=== PATIENT | female | born 1945 | race Caucasian/White ===

== ENCOUNTER → 2021-10-26 07:46 | Outpatient (BNVA) | payer MEDICARE, SELFPAY | PROVIDERS: Family Provider Family Medicine; Referring Provider Nurse Practitioner Family; Visit Provider Podiatrist Foot & Ankle Surgery | DX: B35.1 Tinea unguium (principal); M79.671 Pain in right foot; M79.672 Pain in left foot; E11.9 Type 2 diabetes mellitus without complications | CPT/HCPCS: 99203 ==

== ENCOUNTER → 2022-12-30 07:39 | Outpatient (BNVA) | payer MEDICARE, SELFPAY | PROVIDERS: Family Provider Family Medicine; PCP Nurse Practitioner Family; Visit Provider Podiatrist Foot & Ankle Surgery | DX: B35.1 Tinea unguium (principal); G62.9 Polyneuropathy, unspecified; E11.42 Type 2 diabetes mellitus with diabetic polyneuropathy | CPT/HCPCS: 11721 ==

== ENCOUNTER 2024-02-05 15:03 | Inpatient (IN) | payer MEDICARE, SELFPAY ==
[2024-02-05] VITALS (7 sets, daily range): BP systolic 105–133; BP diastolic 54–74; PULSE 71–75; RESP 14–18; TEMP 36.6–36.9; O2SAT 94–98; BMI 35.6
--- NOTE | 2024-02-05 15:08 | ECG_ITS ---
[facility] Test Date: 2024-02-05 Pat Name: Analilia Arvizu Department: Room: Gender: Female Director Of Epidemiology: : 1945 Requested By: Noah Veloz Order Number: [id number] Reading MD: LILI BAILEY Measurements Intervals [place] Rate: 73 P: 53 NH: 168 QRS: -38 QRSD: 97 T: 29 QT: 352 QTc: 389 Interpretive Statements SINUS RHYTHM LEFT AXIS DEVIATION [QRS AXIS < -30] LOW QRS VOLTAGE IN PRECORDIAL LEADS [QRS DEFLECTION < 1.0 mV IN CHEST LEADS] ANTEROSEPTAL MYOCARDIAL INFARCTION , OF INDETERMINATE AGE [40+ ms Q WAVE IN V1-V4] Compared to ECG 04/11/2017 18:56:35 Low QRS voltage now present Myocardial infarct finding now present Electronically Signed On 02-05-2024 18:52:54 RIVER TRANSPORTATION WORKER by LILI BAILEY [id number]
--- NOTE | 2024-02-05 15:21 | XR_ITS ---
WS: [id number] Portable AP supine chest, 02/05/2024 Clinical Data: ams Comparison: Portable chest, 04/11/2017 Findings: There is a retrocardiac opacity which could represent atelectasis and/or pneumonia. The rig ht lung is clear. No pneumothorax or pulmonary vascular congestion is seen. There are no nodules, mas ses or effusions. The heart is normal. The aortic arch shows moderate calcification. XR/XR chest 1V portable [id number] Impression: 1. Retrocardiac opacity which could represent atelectasis and/or pneumonia. 2. Atherosclerosis.
--- NOTE | 2024-02-05 15:25 | ED_ITS ---
HPI - Altered Mental Status 2 General: Chief Complaint: Altered Mental Status Stated Complaint: confusion, weakness Time Seen by Provider: 02/05/24 15:09 Source: EMS Mode of arrival: EMS Limitations: altered mental status History of Present Illness: This patient was transported from her domicile by [facility]. They were called by the patient's . She apparently recently has had a urinary tract infection was treated but still remains confused. According to EMS. No other history is obtainable at this time. is and route per EMS. There is no records for care at this facility previously. Related Data Home Medications Medication Instructions Recorded Confirmed carvedilol 12.5 mg tablet 12.5 mg PO BID 12/30/22 02/05/24 clopidogrel 75 mg tablet (Plavix) 75 mg PO DAILY 12/30/22 02/05/24 gabapentin 300 mg capsule 300 mg PO TID 12/30/22 02/05/24 pravastatin 40 mg tablet 40 mg PO DAILY 12/30/22 02/05/24 famotidine 40 mg tablet 40 mg PO DAILY 02/05/24 02/05/24 Allergies Allergy/AdvReac Type Severity Reaction Status Date / Time No Known Allergies Allergy Verified 12/30/22 07:42 Review of Systems 2 General: Reports: ROS unobtainable due to mental status PFSH ED 2 PFSH: Medical History HTN (hypertension) with goal to be determined CAD (coronary artery disease) Surgical History History of hysterectomy History of appendectomy History of cholecystectomy Family History Mother Cancer Social History Smoking and tobacco/nicotine status: never used tobacco/nicotine Physical Exam 2 Narrative: The patient is alert she responds in a limited fashion to any questions she primarily echoes the question and her response. Appears to be comfortable. Has a strong urine odor to her body. Const: COMMON NORMALS: alert GENERAL APPEARANCE: comfortable and disheveled ORIENTATION/CONSCIOUSNESS: Yes awake and Yes oriented to person HENMT: FACE & SINUS: face symmetric OTHER: Patient has dry parched mucous membranes. No intraoral masses or erythema noted. Eye: COMMON NORMALS: Equal, round and reactive pupils present, EOMs intact bilaterally and conjunctivae normal CONJUNCTIVA: Yes conjunctivae normal P UPIL: Yes Equal, round and reactive pupils present Neck/C-Spine: COMMON NORMALS: full ROM, no lymphadenopathy and supple Chest: COMMONS NORMALS: normal inspection of the chest Resp: COMMON NORMALS: normal respiratory effort, No use of accessory muscles and clear to auscultation bilaterally AUSCULTATION: clear to auscultation bilaterally Cardio: COMMON NORMALS: regular rate, regular rhythm, No murmurs present (Cardio) and Peripheral pulses 2+ throughout RATE: regular rate RHYTHM: r egular rhythm PERIPHERAL PULSES: Peripheral pulses 2+ throughout GI: COMMON NORMALS: Normal to inspection, nondistended, normoactive bowel sounds present, Soft to palpation and non-tender INSPECTION: Yes scar (Prior midline lower abdominal as well as right upper quadrant surgical scar) P ALPATION: Yes Soft to palpation : COMMON NORMALS: Yes no CVA tenderness BLADDER/KIDNEY EXAM: Yes no CVA tenderness Back/Pelvis: COMMON NORMALS: no CVA tenderness, thoracic and lumbar spine normal to inspection and no thoracic nor lumbar tenderness Extremity: COMMON NORMALS: normal to inspection, full ROM, capillary refill normal, no calf tenderness and no pedal edema Neuro: COMMON NORMALS: moves all extremities and no focal motor deficits S ENSORIUM/ORIENTATION: Yes alert and Yes oriented to person Skin: COMMON NORMALS: no petechiae and no mottling NARRATIVE SKIN EXAM: Decreased skin turgor. Course 2 Reevaluation(s): Reevaluation #1: is now present and he gave additional history and that she was recently treated at the [facility] emergency department at [place] for urinary tract infection and discharged home. He states she started doing better for a couple days and then got worse again and is ultimately decreased in her oral intake become more confused and therefore he called EMS to be transported to this facility. He states that her past history is remarkable for coronary artery disease she has had multiple stents placed most of which have been done at this facility. She still takes her Plavix and other medications as prescribed. We discussed treatment options particularly at this point because of her state of dehydration and general clinical appearance it would be beneficial to treat her as a inpatient or at least a observation patient for the next 24 to 48 hours to ensure that she returns to her baseline. Also reviewed the fact that she has lymphadenopathy but he is unaware of her ever having a diagnosis of a hematologic malignancy. Time: 17:56 Consultations: Consultation #1: Discussed with Dr. Marcos who agrees to place the patient in observation Time: 18:00 Vital Signs: Vital signs: Vital Signs Temperature 97.9 F 02/05/24 15:05 Pulse Rate 73 02/05/24 18:33 Respiratory Rate 16 02/05/24 18:33 Blood Pressure 133/71 02/05/24 18:33 Pulse Oximetry 98 02/05/24 18:33 Oxygen Delivery Me thod Room Air 02/05/24 18:33 MDM - Altered Mental Status Medical Decision Making Patient presented as noted in the HPI. She was transported via EMS from her home. Additionally history is limited to that which could be obtained from EMS. arrived later in the course of of her ED visit. She had been previously treated as an outpatient for UTI had some short-term improvement and then continues to deteriorate with increased confusion decreased oral intake and incontinence of urine. She has a past medical history of coronary disease but he is not aware of her having any concomitant chest pain or shortness of breath. Differential included possible urinary tract infection, volume depletion, other potential occult infection etiology. Laboratories were obtained which revealed evidence of urinary tract infection and volume depletion and possible KLAUS I although no baseline creatinine was available at this time. 78 chest x-ray was obtained which was revealing of possible infiltrate versus retrocardiac mass and a noncontrast CT was obtained which showed significant adenopathy. He had no history of aspiration or other respiratory issues and was not hypoxic here. She received the benefit of IV fluids, IV antibiotics but because of her current clinical status of dehydration poor oral intake and what could be presumed from discussion with her of not being back at her baseline it was felt that a period of observation with continued hydration and antibiotics and reassessment would be appropriate. This was reviewed with the hospital doctor who agreed to proceed. Lab Data I reviewed the patient's lab results. 02/05/24 15:44 02/05/24 15:44 Radiology Impressions Chest X-Ray 02/05/24 15:21 Impression: 1. Retrocardiac opacity which could represent atelectasis and/or pneumonia. 2. Atherosclerosis. 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 No evidence for large acute ischemic infarction or acute intracranial injury. Chest CT 02/05/24 15:59 IMPRESSION: 1. Bulky adenopathy involving both axilla, mediastinum and upper abdomen consistent with hematologic malignancy 2. Bibasilar atelectasis and pleural effusions Laboratory Results WBC 8.03 10^3/uL (3.29-11.43) 02/05/24 15:44 RBC 4.18 10^6/uL (3.85-5.65) 02/05/24 15:44 Hgb 12.30 g/dL (11.27-16.99) 02/05/24 15:44 Hct 38.0 % (36-47) 02/05/24 15:44 MCV 90.9 fl (85-98) 02/05/24 15:44 MCH 29.4 pg (27-33) 02/05/24 15:44 MCHC 32.4 g/dL (30-55) 02/05/24 15:44 RDW 15.8 % (12.1-15.1) H 02/05/24 15:44 Plt Count 190 10^3/cmm (157-399) 02/05/24 15:44 MPV 9.6 fL (7.4-10.4) 02/05/24 15:44 Neut % (Auto) 61.0 % 02/05/24 15:44 Lymph % (Auto) 17.1 % 02/05/24 15:44 [place] % (Auto) 16.6 % 02/05/24 15:44 Eos % (Auto) 4.7 % 02/05/24 15:44 Baso % (Auto) 0.2 % 02/05/24 15:44 Neut # (Auto) 4.90 10^3/uL (1.8-7.7) 02/05/24 15:44 Lymph # (Auto) 1.4 10^3/uL (0.8-4.8) 02/05/24 15:44 [place] # (Auto) 1.3 10^3/uL (0.2-0.9) H 02/05/24 15:44 Eos # (Auto) 0.4 10^3/uL (0.0-0.8) 02/05/24 15:44 Baso # (Auto) 0.0 10^3/uL (0.0-0.1) 02/05/24 15:44 Nucleated RBC % (auto) 0 % 02/05/24 15:44 Nucleated RBCs # 0.0 /100WBC 02/05/24 15:44 Sodium 139 mmol/L (136-145) 02/05/24 15:44 Potassium 4.4 mmol/L (3.5-5.1) 02/05/24 15:44 Chloride 101 mmol/L (98-107) 02/05/24 15:44 Carbon Dioxide 27 mmol/L (22-29) 02/05/24 15:44 Anion Gap 15.4 (5-19) 02/05/24 15:44 BUN 34 mg/dL (8-23) H 02/05/24 15:44 Creatinine 1.4 mg/dL (0.5-0.9) H 02/05/24 15:44 GFR Calculation Not Reportable 02/05/24 15:44 Glucose 89 mg/dL (65-115) 02/05/24 15:44 Calculated Osmolality 295 mOsm/kg (285-295) 02/05/24 15:44 Calcium 11.3 mg/dL (8.5-10.5) H 02/05/24 15:44 Magnesium 1.7 mg/dL (1.7-2.3) 02/05/24 15:44 Total Bilirubin 1.2 mg/dL (0.15-1.2) 02/05/24 15:44 AST 22 U/L (0-32) 02/05/24 15:44 ALT 9 U/L (0-33) 02/05/24 15:44 Alkaline Phosphatase 93 U/L (35-105) 02/05/24 15:44 Total Protein 5.9 g/dL (6.6-8.7) L 02/05/24 15:44 Albumin 2.8 g/dL (3.5-5.2) L 02/05/24 15:44 Globulin 3.1 g/dL (1.3-4.6) 02/05/24 15:44 TSH 1.89 uIU/mL (0.27-4.20) 02/05/24 15:44 Urine Color Yellow (Yellow) 02/05/24 16:06 Urine Appearance Clear (CLEAR) 02/05/24 16:06 Urine pH 5.0 (5-7) 02/05/24 16:06 Ur Specific [place] 1.022 (1.005-1.030) 02/05/24 16:06 Urine Protein Trace (Negative) A 02/05/24 16:06 Urine Glucose (UA) Negative (Normal) 02/05/24 16:06 Urine Ketones Negative (Negative) 02/05/24 16:06 Urine Blood Negative (Negative) 02/05/24 16:06 Urine Nitrate Negative (Negative) 02/05/24 16:06 Urine Bilirubin Negative (Negative) 02/05/24 16:06 Urine Urobilinogen 1.0 mg/dL (Negative) 02/05/24 16:06 Ur Leukocyte Esterase 2+ (Negative) A 02/05/24 16:06 Urine RBC 0-2 /hpf (0-2) 02/05/24 16:06 Urine WBC 21-50 /hpf (0-5) H 02/05/24 16:06 Ur Squamous Epith Cells 11-20 /hpf (0-5) 02/05/24 16:06 Amorphous Sediment Not Reportable 02/05/24 16:06 Urine Bacteria 3+ /hpf (NONE) H 02/05/24 16:06 Hyaline Casts 1.65 /lpf 02/05/24 16:06 All radiology interpretation(s) finalized by discharge EKG Data EKG 1: I personally reviewed and interpreted this EKG as follows: Interpretation: Contemporaneous review of resting EKG reveals ventricular rate of 73 bpm with a normal TX interval, QRS duration, corrected QT interval. Slight leftward axis consider consistent with possible left anterior Heema block. Decreased R wave noted across the precordial leads. No prior available for comparison but this may suggest a remote anterior septal KS. Discharge Plan Discharge Patient Disposition: Placed in Observation Clinical Impression: Urinary tract infection, Volume depletion Condition: Stable Prescriptions: No Action pravastatin 40 mg tablet 40 mg PO DAILY gabapentin 300 mg capsule 300 mg PO TID carvedilol 12.5 mg tablet 12.5 mg PO BID Rx Instructions: must administer with a meal/food clopidogrel [Plavix] 75 mg tablet 75 mg PO DAILY famotidine 40 mg tablet 40 mg PO DAILY Referrals: Maryann Webb NP [Primary Care Provider] - Jose Alberto Al MD [Family Provider] - Patient Instructions: Altered Mental Status (ED) Coding Level of Care Code ED Bakery Assistant for Celestino Ramirez
--- NOTE | 2024-02-05 15:32 | PC.PHAR ---
patient doesn't know/cant confirm.. she said does meds but their number is not a working number.. called pharmacy to confirm
[2024-02-05 15:53] LABS: Basophils % 0.2 %; Eosinophils # 0.4 10^3/uL (0.0-0.8); Eosinophils % 4.7 %; Lymphocytes # 1.4 10^3/uL (0.8-4.8); Lymphocytes % 17.1 %; Mean Corpuscular HGB Conc 32.4 g/dL (30-55); Mean Corpuscular Hemoglobin 29.4 pg (27-33); Mean Corpuscular Volume 90.9 fl (85-98); Mean Platelet Volume 9.6 fL (7.4-10.4); Monocytes # 1.3 10^3/uL (0.2-0.9); Monocytes % 16.6 %; Nucleated Red Blood Cells % 0 %; Platelet Count 190 10^3/cmm (157-399); Red Blood Count 4.18 10^6/uL (3.85-5.65); Red Cell Distribution Width 15.8 % (12.1-15.1); White Blood Count 8.03 10^3/uL (3.29-11.43)
--- NOTE | 2024-02-05 15:57 | CTR_ITS ---
PROCEDURE INFORMATION: Exam: CT Head Without Contrast Exam date and time: 02/05/2024 4:36 PM Age: 78 years old Clinical indication: Altered mental status/memory loss; TECHNIQUE: Imaging protocol: Computed tomography of the head without contrast. Radiation optimization: All CT scans at this facility use at least one of these dose optimization techniques: automated exposure control; mA and/or kV adjustment per patient size (includes targeted exams where dose is matched to clinical indication); or iterative reconstruction. COMPARISON: No relevant prior studies available. 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 There are chronic lacunar infarcts in the basal ganglia and internal/external capsules. There is diffuse cerebral atrophy present, consistent with this patient's age. Periventricular and subcortical white matter low densities are present which at this age likely represent microvascular ischemic change. No evidence for large acute ischemic infarction. Please note acute ischemia can be occult by head CT. No evidence for acute intracranial hemorrhage. Cerebral ventricles: No ventriculomegaly. Paranasal sinuses: Visualized sinuses are unremarkable. No fluid levels. Mastoid air cells: Visualized mastoid air cells are well aerated. Bones: Unremarkable. No acute fracture. Soft tissues: Unremarkable. 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 No evidence for large acute ischemic infarction or acute intracranial injury.
--- NOTE | 2024-02-05 15:59 | CTR_ITS ---
PROCEDURE INFORMATION: Exam: CT Chest Without Contrast; Diagnostic Exam date and time: 02/05/2024 4:39 PM Age: 78 years old Clinical indication: Mass, lump, or swelling in the chest; Additional info: Retrocardaic mass TECHNIQUE: Imaging protocol: Diagnostic computed tomography of the chest without contrast. Radiation optimization: All CT scans at this facility use at least one of these dose optimization techniques: automated exposure control; mA and/or kV adjustment per patient size (includes targeted exams where dose is matched to clinical indication); or iterative reconstruction. COMPARISON: CR XR chest 1V portable [id number] 02/05/2024 3:33 PM RADIATION DOSE METRICS: Total DLP (mGy-cm): 483.54 FINDINGS: Lungs: Bibasilar atelectasis can be seen along with small bilateral pleural effusions. There is high density material within the left lower lobe consistent with either calcifications or aspirated hyperdense material. Pleural spaces: See Lungs finding. Heart: Unremarkable. No cardiomegaly. No pericardial effusion. Coronary arteries: Coronary artery calcifications are noted. Lymph nodes: Numerous enlarged lymph nodes are noted in both axillary regions. The largest node in the right axilla measures 3.4 cm in diameter and the largest node in the left axilla measures 3.7 cm. Multiple enlarged lymph nodes are noted throughout the mediastinum with the largest measuring 3 cm within the subcarinal space. Upper abdominal images demonstrate bulky adenopathy within the lien hepatis as well as in the splenic hilum of the upper abdomen. Vasculature: Unremarkable. No aortic aneurysm. Bones/joints: Unremarkable. No acute fracture. Soft tissues: Unremarkable. CT/CT chest con [id number] IMPRESSION: 1. Bulky adenopathy involving both axilla, mediastinum and upper abdomen consistent with hematologic malignancy 2. Bibasilar atelectasis and pleural effusions
[2024-02-05 16:20] LABS: Alanine Aminotransferase 9 U/L (0-33); Albumin Level 2.8 g/dL (3.5-5.2); Alkaline Phosphatase 93 U/L (35-105); Anion Gap 15.4 (5-19); Aspartate Amino Transferase 22 U/L (0-32); Blood Urea Nitrogen 34 mg/dL (8-23); Calcium 11.3 mg/dL (8.5-10.5); Carbon Dioxide 27 mmol/L (22-29); Chloride 101 mmol/L (98-107); Globulin 3.1 g/dL (1.3-4.6); Glucose 89 mg/dL (65-115); Magnesium 1.7 mg/dL (1.7-2.3); Osmolality Calculated 295 mOsm/kg (285-295); Potassium 4.4 mmol/L (3.5-5.1); Sodium 139 mmol/L (136-145); Thyroid Stimulating Hormone 1.89 uIU/mL (0.27-4.20); Total Bilirubin 1.2 mg/dL (0.15-1.2); Total Protein 5.9 g/dL (6.6-8.7)
[2024-02-05 16:29] LABS: Bilirubin Urine Negative (Negative); Blood Urine Negative (Negative); Glucose Urine UA Negative (Normal); Ketones Urine Negative (Negative); Leukocyte Esterase Urine 2+ (Negative); Nitrate Urine Negative (Negative); Protein Urine Trace (Negative); Specific Gravity, Urine 1.022 (1.005-1.030); Urine Appearance Clear (CLEAR); Urine Color Yellow (Yellow)
[2024-02-05 16:35] LABS: Add Urine Microscopic? YES; Bacteria Urine 3+ /hpf; Hyaline Casts Urine 1.65 /lpf; RBC Urine 0-2 /hpf (0-2); WBC Urine 21-50 /hpf (0-5)
[2024-02-05 16:49] LABS: Add Urine Culture? Yes; UA Slide Review UA Slide Review Perf
[2024-02-05] MEDS: sodium chloride 0.9% 1,000 ML 999 ML IV (17:15)
[2024-02-05] MEDS: cefTRIAXone 2,000 mg SDV 2000 MG IVP (17:15)
--- NOTE | 2024-02-05 18:29 | CTR_ITS ---
PROCEDURE INFORMATION: Exam: CT Abdomen And Pelvis Without Contrast Exam date and time: 02/05/2024 7:02 PM Age: 78 years old Clinical indication: Abdominal pain; Generalized TECHNIQUE: Imaging protocol: Computed tomography of the abdomen and pelvis without contrast. Radiation optimization: All CT scans at this facility use at least one of these dose optimization techniques: automated exposure control; mA and/or kV adjustment per patient size (includes targeted exams where dose is matched to clinical indication); or iterative reconstruction. COMPARISON: CT abdomen pelvis con [id number] 10/27/2017 5:20 PM RADIATION DOSE METRICS: Total DLP (mGy-cm): 875.37 FINDINGS: Lungs: See Pleural spaces finding. Pleural spaces: Small pleural effusions are noted bilaterally along with bibasilar atelectasis. Parenchymal and/or pleural calcifications are noted in the left lower lobe. Liver: Normal. No mass. Gallbladder and biliary ducts: Normal. No calcified stones. No ductal dilation. Pancreas: Normal. No ductal dilation. Spleen: Normal. No splenomegaly. Adrenal glands: Normal. No mass. Kidneys and ureters: Normal. No hydronephrosis. Stomach and bowel: Unremarkable. No obstruction. No mucosal thickening. Appendix: No evidence of appendicitis. Intraperitoneal space: Minimal ascites is noted. Vasculature: Unremarkable. No abdominal aortic aneurysm. Lymph nodes: Multiple enlarged lymph nodes are noted throughout the abdomen and pelvis. Enlarged lymph nodes are noted in the lien hepatis region as well as surrounding the GE junction and splenic hilum. Enlarged nodes are also noted throughout the periaortic space and throughout both iliac chains. Large bilateral inguinal lymph nodes are also noted. The largest inguinal lymph node measures 4.4 cm on the right. The largest iliac chain lymph node measures 3 cm on the right. The largest periaortic lymph node measures 2 cm. The largest periportal lymph node measures 4.7 cm. Urinary bladder: Unremarkable as visualized. Reproductive: Unremarkable as visualized. Bones/joints: Unremarkable. No acute fracture. Soft tissues: Unremarkable. CT/CT abdomen pelvis con [id number] IMPRESSION: Extensive abdominal and pelvic adenopathy consistent with hematologic malignancy
--- NOTE | 2024-02-05 18:29 | ECG_ITS ---
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1945 Requested By: John Paul Tejeda Order Number: [id number] Reading MD: LILI BAILEY Measurements Intervals [place] Rate: 131 P: 0 VA: 0 QRS: -46 QRSD: 94 T: 90 QT: 321 QTc: 475 Interpretive Statements SUPRAVENTRICULAR TACHYCARDIA LOW QRS VOLTAGE IN PRECORDIAL LEADS [QRS DEFLECTION < 1.0 mV IN CHEST LEADS] LEFT ANTERIOR FASCICULAR BLOCK [QRS AXIS <= -45, QR IN I, RS IN II] ANTEROSEPTAL MYOCARDIAL INFARCTION , PROBABLY OLD [40+ ms Q WAVE IN V1-V4] Compared to ECG 02/05/2024 15:08:34 Left anterior fascicular block now present Sinus rhythm no longer present Left-axis deviation no longer present Myocardial infarct finding still present Electronically Signed On 02-05-2024 18:52:28 MOBILE SECURITY SPECIALIST by LILI BAILEY [email or web address]
--- NOTE | 2024-02-05 18:31 | P.HP_ITS ---
Providers/Chief Complaint 2 Primary Care Provider: Maryann Webb NP Chief Complaint: confusion, weakness History of Present Illness Analilia Arvizu is a 78 year old female with a past medical history of type 2 diabetes mellitus, history of CAD status post stenting, hypertension, hyperlipidemia history of cholecystectomy, appendectomy, who presents [facility] due to altered mental status, poor appetite, fatigue, malaise,. Currently patient is alert to person, not to place, to time she does not follow commands globally encephalopathic, pupils are equal round reactive to light, no slurring of her words, but her speech is nonsensical, she moves bilateral upper and lower extremities, is at bedside according to , patient lives at home with him, she is somewhat dependent on her for activities of daily living, for example she at times needs help with ambulation but on most days she can ambulate by herself, she can feed herself, she does have some forgetfulness he tells me. He tells me that about a week ago she had confusion, weakness, she had gotten up to use the bathroom and he she was depending on him more for ambulation, when she got to the bathroom, she slumped over and in the bathroom, he thought she had , but she had what it sounds like a syncopal episode but she came alert about a minute after he had taken his to [facility] ER they had done a lot of test he tells me and all the test came back normal. She was able to actually walk from the car back to the front door after visiting the emergency room, but on Monday she started to become more confused, poor appetite, fatigue, malaise, complaining of abdominal pain, she has not any fevers, no chills, no nausea, no vomiting, no other complaints Review of Systems 2 General: Reports: ROS unobtainable due to mental status Medications/Allergies Home Medications Medication Instructions Recorded Confirmed Last Taken Type carvedilol 12.5 mg tablet 12.5 mg PO BID 12/30/22 02/05/24 Unknown History clopidogrel 75 mg tablet (Plavix) 75 mg PO DAILY 12/30/22 02/05/24 Unknown History gabapentin 300 mg capsule 300 mg PO TID 12/30/22 02/05/24 Unknown History pravastatin 40 mg tablet 40 mg PO DAILY 12/30/22 02/05/24 Unknown History famotidine 40 mg tablet 40 mg PO DAILY 02/05/24 02/05/24 Unknown History Allergies Allergy/AdvReac Type Severity Reaction Status Date / Time No Known Allergies Allergy Verified 12/30/22 07:42 PFSH Acute 2 PFSH: Medical History HTN (hypertension) with goal to be determined CAD (coronary artery disease) Surgical History History of hysterectomy History of appendectomy History of cholecystectomy Family History Mother Cancer Social History Smoking and tobacco/nicotine status: never used tobacco/nicotine Vitals/I&O/Wt Last Vital Signs Temp 97.9 F 02/05/24 15:05 Pulse 72 02/05/24 17:03 Resp 14 02/05/24 17:03 BP 107/73 02/05/24 17:03 Pulse Ox 94 02/05/24 17:03 O2 Del Method Room Air 02/05/24 17:03 Physical Exam 2 Const: COMMON NORMALS: no acute distress EXAM LIMITATIONS: altered mental status ORIENTATION/CONSCIOUSNESS: Yes awake, Yes oriented to person and Yes oriented to place; not oriented to time HENMT: COMMON NORMALS: normocephalic Eye: COMMON NORMALS: Equal, round and reactive pupils present Resp: COMMON NORMALS: normal respiratory effort, No retractions, No use of accessory muscles and clear to auscultation bilaterally AUSCULTATION: clear to auscultation bilaterally Cardio: COMMON NORMALS: no JVD, regular rate, regular rhythm, S1 normal heart sound present and S2 normal heart sound present RATE: regular rate RHYTHM: regular rhythm HEART SOUNDS: S1 normal heart sound present and S2 normal heart sound present GI: COMMON NORMALS: Normal to inspection, nondistended, normoactive bowel sounds present, Soft to palpation and non-tender Extremity: COMMON NORMALS: no pedal edema Neuro: OTHER: doesnot follow neurological testing Data 02/05/24 15:44 02/05/24 15:44 A&P Assessment and plan (1) AMS (altered mental status): (2) Volume depletion: (3) Urinary tract infection: Plan Altered mental status -UA with evidence of UTI, switched to Zosyn -neurocheck, nih stroke scale, aspiration precuations -She has CT does show bibasilar atelectasis, pleural effusion, there is hyperdense material within the left lower lobe with either calcification or aspirated hyperdense material? 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 denies a history of strokes, will continue to monitor closely, telemetry monitoring -Chest CT shows 1. Bulky adenopathy involving both axilla, mediastinum and upper abdomen consistent with hematologic malignancy -Order LDH, haptoglobin, CT scan of the abdomen -IV fluids -Keep n.p.o. -Therapy eval -Full code -Lovenox for DVT prophylaxis Attestations 2 Medical Necessity Statement*: Patient requires hospitalization, inpatient, greater than 2 midnights, for altered mental status Diagnoses AMS (altered mental status) R41.82 Volume depletion E86.9 Urinary tract infection N39.0
[2024-02-05 19:18] LABS: Ammonia 20 umol/L (11-51)
[2024-02-05 19:19] LABS: Erythrocyte Sedimentation Rate 9 mm/hr (0-15)
[2024-02-05 19:34] LABS: Troponin(5th) Baseline 19 ng/L (0-10)
[2024-02-05 19:35] LABS: C Reactive Protein 28.3 mg/L (0.0-4.9); Creatine Phosphokinase 30 U/L (26-192); Lactate Dehydrogenase 276 U/L (135-214); Lactic Sepsis W/Reflex 3.6 mmol/L (0.5-2.2)
[2024-02-05 19:41] LABS: Procalcitonin 0.26 ng/mL (0-0.5)
[2024-02-05 20:42] LABS: Reflex Lactate Order REFLEX LACTIC ORDERD
--- NOTE | 2024-02-05 21:26 | ECG_ITS ---
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 Measurements Intervals [place] Rate: 73 P: 53 NH: 168 QRS: -38 QRSD: 97 T: 29 QT: 352 QTc: 389 Interpretive Statements SINUS RHYTHM LEFT AXIS DEVIATION [QRS AXIS < -30] LOW QRS VOLTAGE IN PRECORDIAL LEADS [QRS DEFLECTION < 1.0 mV IN CHEST LEADS] ANTEROSEPTAL MYOCARDIAL INFARCTION , OF INDETERMINATE AGE [40+ ms Q WAVE IN V1-V4] Compared to ECG 04/11/2017 18:56:35 Low QRS voltage now present Myocardial infarct finding now present Electronically Signed On 02-07-2024 19:16:56 IMAGING TECH by Talia Lerma M.D. [email or web address]
[2024-02-05] MEDS: piperacillin-tazobactam 3.375 GM in sodium chloride 0.9% (plus) 50 ML IV (21:57)
[2024-02-05] MEDS: pantoprazole 40 mg SDV IVP (21:57)
[2024-02-05] MEDS: enoxaparin 40 mg/0.4 mL Syringe SUBCUT (21:57)
[2024-02-05] MEDS: dextrose 5%-sod chloride 0.9% 1,000 ML 75 ML IV (21:58)
[2024-02-05 22:22] LABS: Estmated Average Glucose 140; Hemoglobin A1C 6.5 % (4.0-6.0); Lactic Acid level (Lactate) 3.7 mmol/L (0.5-2.2)
[2024-02-05 22:26] LABS: Troponin 5 2HR Delta 1.1 ABS# (0-10)
[2024-02-06] VITALS (7 sets, daily range): BP systolic 102–136; BP diastolic 60–81; PULSE 74–88; RESP 15–19; TEMP 36.5–37.1; O2SAT 93–98
--- NOTE | 2024-02-06 00:27 | ECG_ITS ---
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 Measurements Intervals [place] Rate: 77 P: 7 CA: 161 QRS: -27 QRSD: 101 T: 34 QT: 367 QTc: 417 Interpretive Statements SINUS RHYTHM LOW QRS VOLTAGE IN PRECORDIAL LEADS [QRS DEFLECTION < 1.0 mV IN CHEST LEADS] ANTEROSEPTAL MYOCARDIAL INFARCTION , OF INDETERMINATE AGE [40+ ms Q WAVE IN V1-V4] Compared to ECG 02/05/2024 18:37:59 Supraventricular tachycardia no longer present Left anterior fascicular block no longer present Myocardial infarct finding still present Electronically Signed On 02-07-2024 19:16:50 COLLAR POINTER by Talia Lerma M.D. [email or web address]
[2024-02-06 00:54] LABS: Basophils % 0.4 %; Eosinophils # 0.3 10^3/uL (0.0-0.8); Eosinophils % 4.6 %; Hematocrit 36.5 % (36-47); Lymphocytes # 1.4 10^3/uL (0.8-4.8); Mean Corpuscular HGB Conc 32.6 g/dL (30-55); Mean Corpuscular Hemoglobin 29.2 pg (27-33); Mean Corpuscular Volume 89.5 fl (85-98); Mean Platelet Volume 9.4 fL (7.4-10.4); Monocytes # 1.1 10^3/uL (0.2-0.9); Monocytes % 15.1 %; Neutrophils % 60.6 %; Nucleated Red Blood Cells % 0 %; Platelet Count 182 10^3/cmm (157-399); Red Blood Count 4.08 10^6/uL (3.85-5.65); Red Cell Distribution Width 15.9 % (12.1-15.1)
[2024-02-06 01:10] LABS: Troponin 5 6HR 22.09 ng/L (0-10); Troponin 5 6HR Delta 3.09 ng/L (0-12)
[2024-02-06 01:12] LABS: Anion Gap 14.2 (5-19); Blood Urea Nitrogen 37 mg/dL (8-23); Calcium 10.6 mg/dL (8.5-10.5); Carbon Dioxide 26 mmol/L (22-29); Chloride 103 mmol/L (98-107); Creatinine Clr Calc Pharmacy 28.5194; Glucose 99 mg/dL (65-115); Osmolality Calculated 297 mOsm/kg (285-295); Potassium 4.2 mmol/L (3.5-5.1); Sodium 139 mmol/L (136-145)
[2024-02-06] MEDS: piperacillin-tazobactam 3.375 GM in sodium chloride 0.9% (plus) 50 ML IV ×3 (05:29→21:36)
[2024-02-06] MEDS: dextrose 5%-sod chloride 0.9% 1,000 ML 75 ML IV (09:42)
[2024-02-06 10:30] LABS: Uric Acid 8.7 mg/dL (2.4-5.7)
--- NOTE | 2024-02-06 11:00 | MR_ITS ---
WS: [id number] MRI HEAD WITHOUT CONTRAST TECHNIQUE: Sagittal T1, T2 axial, T2 axial FLAIR, axial and coronal T1 images, axial susceptibility w eighted imaging, axial diffusion weighted images, and coronal T2 images were obtained. CLINICAL INFORMATION: ams COMPARISON: CT 02/05/2024 FINDINGS: Most of the imaging is degraded by motion artifact. Axial diffusion and sagittal T1 imaging is adequate. No evidence of restricted diffusion to suggest acute ischemia. Ventricular system and basal cisterns are patent. No hydrocephalus. Moderate to advanced small vessel changes. Moderate parenchymal volume loss. Small vessel changes in the yesika. Chronic infarcts partially evaluated in the cerebellum bilate rally. Chronic lacunar infarcts RIGHT cerebellum. Chronic cortical infarct LEFT cerebellum. No hemosi rhoda on the susceptibly weighted images. Normal optic chiasm and pituitary infundibulum. Moderate to advanced symmetric atrophy temporal lobes and hippocampal formations. MR/MR head wo con* [id number] IMPRESSION: Images significantly degraded by motion artifact despite medication . 1. No evidence of restricted diffusion to suggest acute ischemia. 2. No hydrocephalus. 3. Moderate to advanced small vessel changes with moderate parenchymal volume loss. 4. 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 5. No hemosiderin on the susceptibility weighted images. 6. Moderate to advanced symmetric atrophy temporal lobes hippocampal formation s.
[2024-02-06] MEDS: LORazepam 2 mg/mL INJ 1 mL 1 MG IVP (11:13)
[2024-02-06 11:35] LABS: Glucose Point of Care 143 mg/dL (70-110)
--- NOTE | 2024-02-06 12:44 | PC.SLP ---
Patient unable to participate in assessment at this time. Patient had Ativan earlier for procedure. She is currently not alert.
--- NOTE | 2024-02-06 15:10 | P.PN_ITS ---
Subjective 2 Subjective: Patient was seen this morning, is at bedside, she remains diffusely encephalopathic, she does not follow commands she is able to answer her name, able to tell me her birthdate, but keeps moaning, her speech is nonsensical I cannot discern any facial droop no slurring of words, she does move her upper and lower extremities, at bedside tells me that she did sleep well last night, no wandering, no agitation, he tells me that she is a bit more alert and awake compared to yesterday, but this is not her, I had a detailed discussion with her about her CT scan findings, of diffuse lymphadenopathy, findings concerning for malignancy, given her persistent encephalopathy plan on MRI today to rule out intracranial metastasis, continue IV antibiotics, depending on clinical progress certainly can proceed with biopsy of her lymph nodes to establish a diagnosis, Vitals/I&O/Wt Last Vital Signs Temp 97.7 F 02/06/24 11:58 Pulse 79 02/06/24 11:58 Resp 17 02/06/24 11:58 BP 132/69 02/06/24 11:58 Pulse Ox 96 02/06/24 11:58 O2 Del Method Room Air 02/06/24 11:58 02/06/24 02/06/24 02/06/24 06:59 14:59 22:59 Intake Total 50 / 1050 1037.5 / 1037.5 Balance 50 / 1050 1037.5 / 1037.5 Weight last 48 hrs Weight 82.826 kg Weight 82.735 kg Physical Exam 2 Const: COMMON NORMALS: no acute distress ORIENTATION/CONSCIOUSNESS: Yes awake and Yes oriented to person; not oriented to place, not oriented to time and not confused Eye: COMMON NORMALS: Equal, round and reactive pupils present PUPIL: Yes Equal, round and reactive pupils present Resp: COMMON NORMALS: normal respiratory effort, No retractions, No use of accessory muscles and clear to auscultation bilaterally AUSCULTATION: clear to auscultation bilaterally Cardio: COMMON NORMALS: regular rate, regular rhythm, S1 normal heart sound present and S2 normal heart sound present RATE: regular rate RHYTHM: r egular rhythm HEART SOUNDS: S1 normal heart sound present and S2 normal heart sound present GI: COMMON NORMALS: Normal to inspection, nondistended, normoactive bowel sounds present and non-tender Extremity: COMMON NORMALS: no pedal edema Neuro: SENSORIUM/ORIENTATION: Yes oriented to person, No oriented to place and No oriented to time Data 02/06/24 00:44 02/06/24 00:44 Micro: Microbiology 02/05/24 21:47 Blood Culture - Preliminary Blood SPECIMEN COLLECTED 02/05/24 21:37 Blood Culture - Preliminary Blood SPECIMEN COLLECTED A&P Assessment and plan (1) AMS (altered mental status): (2) Volume depletion: (3) Urinary tract infection: Qualifiers: Urinary tract infection type: site unspecified (4) Lymphadenopathy, abdominal: (5) Lymphadenopathy: (6) Pneumonia: Plan Altered mental status -UA with evidence of UTI, switched to Zosyn -neurocheck, nih stroke scale, aspiration precuations -She has CT does show bibasilar atelectasis, pleural effusion, there is hyperdense material within the left lower lobe with either calcification or aspirated hyperdense material? 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 MRI brain -Chest CT shows 1. Bulky adenopathy involving both axilla, mediastinum and upper abdomen consistent with hematologic malignancy CT/CT chest wo con [id number] IMPRESSION: 1. Bulky adenopathy involving both axilla, mediastinum and upper abdomen consistent with hematologic malignancy 2. Bibasilar atelectasis and pleural effusions -Order LDH 276, haptoglobin 201 -IV fluids -Keep n.p.o. -Therapy eval -Full code -Lovenox for DVT prophylaxis Attestations 2 Medical Necessity Statement*: Patient requires hospitalization for persistent encephalopathy, confusion, UTI, pneumonia, diffuse lymphadenopathy Diagnoses AMS (altered mental status) R41.82 Volume depletion E86.9 Urinary tract infection N39.0 Urinary tract infection type: site unspecified Lymphadenopathy, abdominal R59.0 Lymphadenopathy R59.1 Pneumonia J18.9
[2024-02-06 16:08] LABS: Glucose Point of Care 131 mg/dL (70-110)
[2024-02-06 16:38] LABS: Hepatitis A Antibody IgM Non-Reactive (Nonreactive); Hepatitis B Core IgM Non-Reactive (Nonreactive); Hepatitis B Surface Antigen Non-Reactive (Nonreactive); Hepatitis C Virus Antibody Non-Reactive (Nonreactive)
[2024-02-06 16:41] LABS: HIV 1 & 2 Antibody Non-Reactive (Non-Reactiv); HIV 1 & 2 Antigen Non-Reactive (Non-Reactiv)
--- NOTE | 2024-02-06 18:09 | PC.SLP ---
Pt is not alert enough to eval at this time. 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
[2024-02-06] MEDS: pantoprazole 40 mg SDV IVP (21:36)
[2024-02-06] MEDS: enoxaparin 30 mg/0.3 mL Syringe SUBCUT (21:36)
[2024-02-06 21:41] LABS: Glucose Point of Care 135 mg/dL (70-110)
[2024-02-07] VITALS (8 sets, daily range): BP systolic 97–147; BP diastolic 60–84; PULSE 73–83; RESP 15–24; TEMP 36.8–37.4; O2SAT 93–95
[2024-02-07] MEDS: acetaminophen 650 mg Supp PR (01:08)
[2024-02-07 05:04] LABS: Basophils % 0.4 %; Eosinophils # 0.5 10^3/uL (0.0-0.8); Eosinophils % 6.6 %; Hematocrit 35.8 % (36-47); Lymphocytes # 1.6 10^3/uL (0.8-4.8); Lymphocytes % 20.1 %; Mean Corpuscular HGB Conc 32.1 g/dL (30-55); Mean Corpuscular Hemoglobin 29.1 pg (27-33); Mean Corpuscular Volume 90.6 fl (85-98); Mean Platelet Volume 9.8 fL (7.4-10.4); Monocytes # 1.2 10^3/uL (0.2-0.9); Monocytes % 15.6 %; Neutrophils # 4.38 10^3/uL (1.8-7.7); Neutrophils % 56.9 %; Nucleated Red Blood Cells % 0 %; Platelet Count 181 10^3/cmm (157-399); Red Blood Count 3.95 10^6/uL (3.85-5.65); Red Cell Distribution Width 15.9 % (12.1-15.1)
[2024-02-07 05:20] LABS: Blood Urea Nitrogen 39 mg/dL (8-23); Calcium 10.3 mg/dL (8.5-10.5); Carbon Dioxide 25 mmol/L (22-29); Chloride 108 mmol/L (98-107); Creatinine Clr Calc Pharmacy 22.3531; Glucose 131 mg/dL (65-115); Osmolality Calculated 309 mOsm/kg (285-295); Sodium 144 mmol/L (136-145)
[2024-02-07] MEDS: piperacillin-tazobactam 3.375 GM in sodium chloride 0.9% (plus) 50 ML IV ×2 (05:24→17:45)
[2024-02-07 06:54] LABS: Glucose Point of Care 116 mg/dL (70-110)
--- NOTE | 2024-02-07 08:57 | FL_ITS ---
WS: [id number] LUMBAR PUNCTURE CLINICAL INFORMATION: ams COMPARISON: None. TECHNIQUE: Informed consent: Verbal and written consent was obtained prior to procedure from patient's caregiver . Timeout: A timeout was performed to confirm correct patient, procedure, and site. Patient was prepped and draped in the usual sterile fashion. Lidocaine 1% was used for local anesthes ia. Utilizing fluoroscopic guidance, a 3.5 inch 22-gauge spinal needle was advanced into the subarach noid space at L3-L4 via LEFT oblique sublaminar approach. Free flow of clear CSF was obtained. 12 cc of clear CSF was collected and sent the lab for further analysis. FLUOROSCOPIC TIME: 2min [id number] # of spot films: 1 FL/FL guided lumbarpunc dx* [id number] IMPRESSION: Fluoroscopically guided lumbar puncture. No immediate complications
[2024-02-07] MEDS: dextrose 5%-sod chloride 0.9% 1,000 ML 75 ML IV ×2 (09:25→22:26)
[2024-02-07] MEDS: vancomycin 2,000 MG/400 ML PIGGYBACK 200 MG IV (09:25)
--- NOTE | 2024-02-07 10:04 | PC.SOCIAL ---
IMM Updated Updated pt on IMM. No questions voiced. Provided pt a copy. Initialed, dated, & timed a copy & placed in chart.
[2024-02-07 11:26] LABS: Glucose Point of Care 164 mg/dL (70-110)
[2024-02-07] MEDS: vancomycin 500 MG in sodium chloride 0.9% (plus) 100 ML 200 MG IV (11:30)
[2024-02-07] MEDS: insulin lispro 100 unit/1 mL SUBCUT (11:56)
[2024-02-07 12:08] LABS: Glucose Point of Care 75 mg/dL (70-110)
--- NOTE | 2024-02-07 12:26 | PHA.VACGOAL ---
Vancomycin Goal - Goal Vancomycin Goal:: 15-20 mg/L Vancomycin Indication:: Pneumonia - Therapy Current therapy:: Pip/Tazo Day of therpy:: Day [1]of [] . Actual body weight (kg): 81.647 kg - Data Labs: WBC 7.70 10^3/uL (3.29-11.43) 02/07/24 04:48 RBC 3.95 10^6/uL (3.85-5.65) 02/07/24 04:48 Hgb 11.50 g/dL (11.27-16.99) 02/07/24 04:48 Hct 35.8 % (36-47) L 02/07/24 04:48 MCV 90.6 fl (85-98) 02/07/24 04:48 MCH 29.1 pg (27-33) 02/07/24 04:48 MCHC 32.1 g/dL (30-55) 02/07/24 04:48 RDW 15.9 % (12.1-15.1) H 02/07/24 04:48 Sodium 144 mmol/L (136-145) 02/07/24 04:48 Potassium 4.0 mmol/L (3.5-5.1) 02/07/24 04:48 Chloride 108 mmol/L (98-107) H 02/07/24 04:48 Carbon Dioxide 25 mmol/L (22-29) 02/07/24 04:48 Anion Gap 15.0 (5-19) 02/07/24 04:48 BUN 39 mg/dL (8-23) H 02/07/24 04:48 Creatinine 1.9 mg/dL (0.5-0.9) H 02/07/24 04:48 GFR Calculation Not Reportable 02/07/24 04:48 Treatment plan:: new consult Regimen:: Patient is a new start vancomycin for Pneumonia. Patient received load dose of 2500 mg. Due to patient's calculated creatinine clearance being <30 mL/min will dose patient using Intermittent Dosing Post Load. Vancomycin level ordered for 02/07 @0930.
[2024-02-07 14:09] LABS: Leukemia Profile (BBPL) See Report
[2024-02-07] MEDS: LORazepam 2 mg/mL INJ 1 mL 1 MG IVP (15:18)
--- NOTE | 2024-02-07 16:36 | P.PN_ITS ---
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 bilaterally, she is able to wiggle her toes, but remains encephalopathic, continues to moan in pain but cannot localize any pain, pupils equal round reactive to light, cannot discern any focal weakness she has more generalized weakness, no slurring of her words, she is been afebrile overnight, normotensive, at bedside -Continues to have a high aspiration ris k, no effort to swallow, continue to have speech therapy evaluate patient -Discussed with at bedside, disc ussed her imaging findings, -Discussed her creatinine up to 1.9 -Given her persistent encephalopathy, to [facility] encephalopathy, will perform a L lumbar puncture -He does report that about 2 years ago s he had similar presentation to [facility] in [place], they had diagnosed her for seizures, she was on seizure medications, but they were stopped as outpatient by her as they were causing episodes of confusion but this was more than a year ago she has been off seizure medications ? Had a family meeting with patient's , son at discuss clinical status CT scan findings concerning for malignancy, presents encephalopathy, UTI, pneumonia, plans on lumbar puncture, EEG, trial of seizure medications, clinical monitoring she continues to have encephalopathy although improved compared to yesterday, will try to orally feed her, will might require NG tube placement IV fluids, Vitals/I&O/Wt Last Vital Signs Temp 99.4 F 02/07/24 15:45 Pulse 77 02/07/24 15:45 Resp 16 02/07/24 15:45 BP 145/84 02/07/24 15:45 Pulse Ox 93 02/07/24 15:45 O2 Del Method Room Air 02/07/24 15:45 02/07/24 02/07/24 02/07/24 06:59 14:59 22:59 Intake Total 45.625 / 1137.500 550 / 550 Balance 45.625 / 1137.500 550 / 550 Weight last 48 hrs Weight 81.647 kg Weight 82.826 kg Weight 82.735 kg Physical Exam 2 Const: COMMON NORMALS: no acute distress EXAM LIMITATIONS: altered mental status ORIENTATION/CONSCIOUSNESS: Yes awake, Yes oriented to person, Yes oriented to time and Yes confused; not oriented to place Eye: COMMON NORMALS: Equal, round and reactive pupils present PUPIL: Yes Equal, round and reactive pupils present Lymph: LYMPHATIC: lymphadenopathy Resp: COMMON NORMALS: normal respiratory effort, No retractions, No use of accessory muscles and clear to auscultation bilaterally AUSCULTATION: clear to auscultation bilaterally Cardio: COMMON NORMALS: regular rate, regular rhythm, S1 normal heart sound present and S2 normal heart sound present RATE: regular rate RHYTHM: r egular rhythm HEART SOUNDS: S1 normal heart sound present and S2 normal heart sound present GI: COMMON NORMALS: Normal to inspection, nondistended, normoactive bowel sounds present, Soft to palpation and non-tender PALPATION: Yes Soft to palpation Extremity: COMMON NORMALS: no pedal edema Neuro: SENSORIUM/ORIENTATION: Yes oriented to person, No oriented to place and Yes oriented to time Data 02/07/24 04:48 02/07/24 04:48 Micro: Microbiology 02/05/24 16:06 Urine Culture - Preliminary Urine,Clean Catch 02/05/24 21:47 Blood Culture - Preliminary Blood NEGATIVE TO DATE 02/05/24 21:37 Blood Culture - Preliminary Blood NEGATIVE TO DATE A&P Assessment and plan (1) AMS (altered mental status): (2) Volume depletion: (3) Urinary tract infection: Qualifiers: Urinary tract infection type: site unspecified (4) Lymphadenopathy, abdominal: (5) Lymphadenopathy: (6) Pneumonia: (7) KLAUS (acute kidney injury): Plan Altered mental status, acute encephalopathy, toxic encephalopathy -UA with evidence of UTI, Zosyn -neurocheck, nih stroke scale, aspiration precuations -She has CT does show bibasilar atelectasis, pleural effusion, there is hyperdense material within the left lower lobe with either calcification or aspirated hyperdense material? 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 MRI brain MR/MR head wo con* [id number] IMPRESSION: Images significantly degraded by motion artifact despite medication. 1. No evidence of restricted diffusion to suggest acute ischemia. 2. No hydrocephalus. 3. Moderate to advanced small vessel changes with moderate parenchymal volume loss. 4. 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 5. No hemosiderin on the susceptibility weighted images. 6. 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 -Chest CT shows 1. Bulky adenopathy involving both axilla, mediastinum and upper abdomen consistent with hematologic malignancy CT/CT chest wo con [id number] IMPRESSION: 1. Bulky adenopathy involving both axilla, mediastinum and upper abdomen consistent with hematologic malignancy 2. Bibasilar atelectasis and pleural effusions -Order LDH 276, haptoglobin 201 -Due to persistent encephalopathy, lumbar puncture ordered, CSF studies ordered -Leukemia, lymphoma panel, CSF cytology -Will give her a dose of 1000 mg IV Keppra to see if her mentation improves, EEG ordered await records from [facility] n.p.o. -Therapy eval -Full code -Lovenox for DVT prophylaxis Attestations 2 Medical Necessity Statement*: Patient requires hospitalization for persistent acute encephalopathy Diagnoses AMS (altered mental status) R41.82 Volume depletion E86.9 Urinary tract infection N39.0 Urinary tract infection type: site unspecified Lymphadenopathy, abdominal R59.0 Lymphadenopathy R59.1 Pneumonia J18.9 KLAUS (acute kidney injury) N17.9
[2024-02-07 17:09] LABS: Glucose Point of Care 149 mg/dL (70-110)
[2024-02-07] MEDS: levETIRAcetam 1,000 MG/100 ML PREMIX 400 MG IV (17:24)
[2024-02-07 17:30] LABS: CSF Specific Gravity 1.006; Cyto Order Verification Order Verified
[2024-02-07 17:31] LABS: Cyto Order Verification Order Verified
[2024-02-07 17:35] LABS: LAB Peripheral Smear Sent for Review
[2024-02-07 17:47] LABS: Glucose CSF 92 mg/dL (40-70)
[2024-02-07 17:50] LABS: Total Protein CSF 24 mg/dL (15-45)
[2024-02-07 17:54] LABS: CSF Mononuclear # 0.002 10^3/uL (50-90); Mononuclear WBC CSF % 100 % (50-90); Polynuclear WBC CSF % 0 % (0-10); Red Blood Cell CSF 0 10^3/uL (0-0); White Blood Cell CSF 2 /uL (0-5)
[2024-02-07 18:00] LABS: Appearance CSF CLEAR (CLEAR); Color CSF COLORLESS (COLORLESS)
[2024-02-07 18:01] LABS: Pathology Referral Yes
[2024-02-07 20:52] LABS: Glucose Point of Care 147 mg/dL (70-110)
[2024-02-07] MEDS: pantoprazole 40 mg SDV IVP (21:06)
[2024-02-08] VITALS (7 sets, daily range): BP systolic 135–150; BP diastolic 66–97; PULSE 75–83; RESP 17–23; TEMP 36.6–37.2; O2SAT 94–97
[2024-02-08] MEDS: piperacillin-tazobactam 3.375 GM in sodium chloride 0.9% (plus) 50 ML IV ×3 (00:45→17:49)
[2024-02-08 05:32] LABS: Basophils % 0.4 %; Eosinophils # 0.7 10^3/uL (0.0-0.8); Eosinophils % 7.8 %; Lymphocytes # 1.2 10^3/uL (0.8-4.8); Lymphocytes % 13.9 %; Mean Corpuscular HGB Conc 30.8 g/dL (30-55); Mean Corpuscular Hemoglobin 29.8 pg (27-33); Mean Corpuscular Volume 96.9 fl (85-98); Mean Platelet Volume 9.3 fL (7.4-10.4); Monocytes # 1.3 10^3/uL (0.2-0.9); Monocytes % 15.2 %; Neutrophils % 62.3 %; Nucleated Red Blood Cells % 0 %; Platelet Count 184 10^3/cmm (157-399); Red Blood Count 3.92 10^6/uL (3.85-5.65); Red Cell Distribution Width 16.2 % (12.1-15.1); White Blood Count 8.34 10^3/uL (3.29-11.43)
[2024-02-08 05:54] LABS: Alanine Aminotransferase 8 U/L (0-33); Albumin Level 2.6 g/dL (3.5-5.2); Alkaline Phosphatase 94 U/L (35-105); Anion Gap 16.8 (5-19); Aspartate Amino Transferase 19 U/L (0-32); Blood Urea Nitrogen 40 mg/dL (8-23); C Reactive Protein 25.4 mg/L (0.0-4.9); Calcium 9.9 mg/dL (8.5-10.5); Carbon Dioxide 20 mmol/L (22-29); Chloride 113 mmol/L (98-107); Creatinine Clr Calc Pharmacy 28.2281; Glucose 181 mg/dL (65-115); Magnesium 1.6 mg/dL (1.7-2.3); Osmolality Calculated 316 mOsm/kg (285-295); Phosphorus 2.3 mg/dL (2.5-4.5); Potassium 3.8 mmol/L (3.5-5.1); Sodium 146 mmol/L (136-145); Total Bilirubin 1.4 mg/dL (0.15-1.2); Total Protein 5.6 g/dL (6.6-8.7)
[2024-02-08 05:55] LABS: Creatine Phosphokinase 22 U/L (26-192)
[2024-02-08 05:57] LABS: Procalcitonin 0.23 ng/mL (0-0.5)
[2024-02-08 06:24] LABS: Glucose Point of Care 175 mg/dL (70-110)
[2024-02-08] MEDS: levETIRAcetam 500 MG/100 ML PREMIX 400 MG IV ×2 (09:09→20:21)
[2024-02-08] MEDS: insulin lispro 100 unit/1 mL SUBCUT ×3 (09:10→17:51)
[2024-02-08] MEDS: lanolin oint 7 gm 1 APPLIC TOPICAL (09:11)
[2024-02-08 09:57] LABS: Vancomycin Trough 18.5 ug/mL (10-15)
[2024-02-08 11:32] LABS: Glucose Point of Care 211 mg/dL (70-110)
[2024-02-08] MEDS: dextrose 5%-sod chloride 0.9% 1,000 ML 75 ML IV (11:38)
--- NOTE | 2024-02-08 13:41 | P.PN_ITS ---
Subjective 2 Subjective: Patient was seen this morning, is at bedside, she was afebrile overnight, normotensive remains on room air, continues to have poor appetite, she continues to have encephalopathy but this morning she is alert to person, to place, not to time she recognized her at bedside, she is able to follow commands such as moving her feet, moving her hands, but she keeps moaning as if she is in pain, but does not localize any pain, when asked her what is wrong she is not able to provide a clear answer, she remains at times encephalopathic, she makes no attempt to get up out of bed, no attempt to try to feed, speech therapy saw her yesterday she tends to hold onto food in her mouth, pupils equal round reactive to light, she is able to localize pain able to withdraw from pain, able to follow commands at times, but her speech at times does not make sense, discussed with at bedside as she continues to have a poor appetite we will have to encourage her to p.o. intake, placed on aspiration precautions will try dysphagia level 4 diet, if this does not work if she remains a high aspiration risk we might have to put an NG tube to try to feed her orally, her lumbar puncture yesterday does not show any significant evidence of infection so far awaiting on the culture results, I started Keppra last night for possible seizures, nursing staff and does not notice any significant difference, awaiting on records from [facility] Vitals/I&O/Wt Last Vital Signs Temp 98.5 F 02/08/24 11:57 Pulse 80 02/08/24 11:57 Resp 17 02/08/24 11:57 BP 144/97 02/08/24 11:57 Pulse Ox 95 02/08/24 11:57 O2 Del Method Room Air 02/08/24 11:57 02/07/24 02/08/24 02/08/24 22:59 06:59 14:59 Intake Total 1126.25 / 1676.25 50 / 1726.25 1140 / 1140 Balance 1126.25 / 1676.25 50 / 1726.25 1140 / 1140 Weight last 48 hrs Weight 81.193 kg Weight 81.647 kg Physical Exam 2 Const: COMMON NORMALS: no acute distress ORIENTATION/CONSCIOUSNESS: Yes awake, Yes oriented to person and Yes confused; not oriented to place and not oriented to time Eye: COMMON NORMALS: Equal, round and reactive pupils present PUPIL: Yes Equal, round and reactive pupils present Resp: COMMON NORMALS: normal respiratory effort, No retractions, No use of accessory muscles and clear to auscultation bilaterally AUSCULTATION: clear to auscultation bilaterally Cardio: COMMON NORMALS: regular rate, regular rhythm, S1 normal heart sound present and S2 normal heart sound present RATE: regular rate RHYTHM: r egular rhythm HEART SOUNDS: S1 normal heart sound present and S2 normal heart sound present GI: COMMON NORMALS: Normal to inspection, nondistended, normoactive bowel sounds present and non-tender Extremity: COMMON NORMALS: no pedal edema Neuro: SENSORIUM/ORIENTATION: Yes oriented to person, No oriented to place and No oriented to time Data 02/08/24 05:21 02/08/24 05:21 Micro: Microbiology 02/07/24 16:35 Gram Stain - Final Cerebrospinal Fluid 02/05/24 16:06 Urine Culture - Final Urine,Clean Catch A&P Assessment and plan (1) AMS (altered mental status): (2) Volume depletion: (3) Urinary tract infection: Qualifiers: Urinary tract infection type: site unspecified (4) Lymphadenopathy, abdominal: (5) Lymphadenopathy: (6) Pneumonia: (7) KLAUS (acute kidney injury): (8) Toxic encephalopathy: Plan Altered mental status, acute encephalopathy, toxic encephalopathy -UA with evidence of UTI, Zosyn -neurocheck, nih stroke scale, aspiration precuations -She has CT does show bibasilar atelectasis, pleural effusion, there is hyperdense material within the left lower lobe with either calcification or aspirated hyperdense material? He denies any aspiration event, findings are concerning for aspiration pneumonia, she is on room air, no evidence of respiratory stress, continue Zosyn -Due to persistent encephalopathy vancomycin added -Follow urine cultures -Follow blood cultures -KLAUS, getting up to 1.9, now 1.5 IV fluids -Patient CT of the head does show old bilateral cerebellar hemispheric infarcts age-indeterminate,? MRI brain MR/MR head wo con* [id number] IMPRESSION: Images significantly degraded by motion artifact despite medication. 1. No evidence of restricted diffusion to suggest acute ischemia. 2. No hydrocephalus. 3. Moderate to advanced small vessel changes with moderate parenchymal volume loss. 4. 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 5. No hemosiderin on the susceptibility weighted images. 6. 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 -Chest CT shows 1. Bulky adenopathy involving both axilla, mediastinum and upper abdomen consistent with hematologic malignancy CT/CT chest wo con [id number] IMPRESSION: 1. Bulky adenopathy involving both axilla, mediastinum and upper abdomen consistent with hematologic malignancy 2. Bibasilar atelectasis and pleural effusions -Order LDH 276, haptoglobin 201 -Due to persistent encephalopathy, lumbar puncture ordered, CSF studies so far lackluster, cultures so far no growth -Leukemia, lymphoma panel, CSF cytology -Will give her a dose of 1000 mg IV Keppra to see if her mentation improves, Keppra 500 mg IV twice daily, EEG ordered, have not noticed any significant improvement of her mentation ? She does take gabapentin 300 mg 3 times daily possible withdrawal? Will see if we can have her swallow pills if not we will have to put an NG tube based on clinical progress # B12, folate, thiamine levels ordered, started on thiamine supplementation, folic acid supplementation, B12 supplementation -Try dysphagia level 4 diet, aspiration precautions ? Will consider NG tube placement -Therapy eval -Full code -Lovenox for DVT prophylaxis Attestations 2 Medical Necessity Statement*: Patient requires hospitalization for persistent toxic encephalopathy, with dehydration, KLAUS, requiring IV fluids, IV antibiotics Diagnoses AMS (altered mental status) R41.82 Volume depletion E86.9 Urinary tract infection N39.0 Urinary tract infection type: site unspecified Lymphadenopathy, abdominal R59.0 Lymphadenopathy R59.1 Pneumonia J18.9 KLAUS (acute kidney injury) N17.9 Toxic encephalopathy G92.9
[2024-02-08 14:42] LABS: Vitamin B12 380 pg/mL (232-1245)
[2024-02-08 14:43] LABS: Folate Level 7.9 ng/mL (4.8-37.3)
--- NOTE | 2024-02-08 15:00 | PC.NURSE ---
Patient requested that more numbers be added to her list of people you can give information to. Avila and Moira Wade patient's son and daughter in law. [phone], . Pooja Clare patient's daughter [phone] and patient's sister Jessica De La Vega [phone].
[2024-02-08] MEDS: folic acid 1 MG, multivitamin inj 10 ML, thiamine 100 MG in sodium chloride 0.9% 1,000 ML 252.8 MG IV (15:08)
[2024-02-08 16:13] LABS: Glucose Point of Care 167 mg/dL (70-110)
--- NOTE | 2024-02-08 17:15 | PC.NURSE ---
The pt continues to remain altered and unable to follow commands of swallowing any drinks and meds.
[2024-02-08 17:54] LABS: Glucose Point of Care 171 mg/dL (70-110)
--- NOTE | 2024-02-08 18:35 | XRR_ITS ---
PROCEDURE INFORMATION: Exam: XR Chest Exam date and time: 02/08/2024 7:50 PM Age: 78 years old Clinical indication: Device placement; Ng tube; Additional info: Ng placement TECHNIQUE: Imaging protocol: Radiologic exam of the chest. Views: 1 view. COMPARISON: CT chest con [id number] 02/05/2024 4:39 PM FINDINGS: Tubes, catheters and devices: Gastric tube with tip in the mid left abdomen, in the expected location of the inferior mid stomach. Lungs: Airspace opacity or atelectasis in the left lung base. Pleural spaces: Small left pleural effusion. Heart/Mediastinum: Unremarkable. No cardiomegaly. Bones/joints: Lumbar scoliosis. Gastrointestinal tract: The stomach and bowel are decompressed. XR/XR chest 1V portable [id number] IMPRESSION: Gastric tube tip in the expected location of the inferior mid stomach.
[2024-02-08 18:42] LABS: ABG PCO2 36.9 mmHg (35-45); ABG PH Result 7.42 (7.35-7.45); Alveolar-Arterial Oxygen Gradi 4.7 mmHg (5-10); Arterial Blood Gas Hematocrit 38.1 % (37-47); Base Excess ABG -0.5 mmol/L (-2.0-2.0); Blood Gas Operator Identificat AMH; Blood Gas Sample Site Brachial, left; Blood Gas Sample Type Arterial; Carboxyhemoglobin 1.5 %THgb (0.4-20.1); HCO3 ABG 23.8 mmol/L (22-26); HGB O2 Sat 91.9 % (95-100); Ionized Calcium Level - ABG 1.3 mmol/L (1.1-1.4); Methemoglobin 0.9 % (0.4-1.5); Oxygen Device ROOM AIR; Oxygen Saturation ABG 94.2; PO2 ABG 68.4 mmHg (80.0-100.0); PO2 FiO2 Ratio Arterial Blood 325; Potassium Level - ABG 5.7 mmol/L (3.5-5.0); Total Hemoglobin 12.4 g/dL (12-16)
[2024-02-08 20:13] LABS: Anion Gap 14.4 (5-19); Blood Urea Nitrogen 31 mg/dL (8-23); Calcium 9.3 mg/dL (8.5-10.5); Carbon Dioxide 21 mmol/L (22-29); Chloride 113 mmol/L (98-107); Creatinine Clr Calc Pharmacy 35.2852; Glucose 160 mg/dL (65-115); Osmolality Calculated 310 mOsm/kg (285-295); Potassium 3.4 mmol/L (3.5-5.1); Sodium 145 mmol/L (136-145)
[2024-02-08 20:46] LABS: Glucose Point of Care 138 mg/dL (70-110)
[2024-02-08] MEDS: enoxaparin 30 mg/0.3 mL Syringe SUBCUT (21:17)
[2024-02-08] MEDS: pantoprazole 40 mg SDV IVP (21:17)
[2024-02-09] VITALS (7 sets, daily range): BP systolic 103–141; BP diastolic 61–86; PULSE 79–88; RESP 15–24; TEMP 36.9–38.1; O2SAT 94–96
[2024-02-09] MEDS: dextrose 5%-sod chloride 0.9% 1,000 ML 75 ML IV ×2 (01:19→14:28)
[2024-02-09] MEDS: piperacillin-tazobactam 3.375 GM in sodium chloride 0.9% (plus) 50 ML IV ×2 (01:19→09:27)
[2024-02-09] MEDS: morphine 4 mg/mL SDV 1 mL 2 MG IVP (03:45)
[2024-02-09 06:11] LABS: Lactate (Lactic Acid level) 2.5 mmol/L (0.5-2.2)
[2024-02-09 06:16] LABS: Creatine Phosphokinase 46 U/L (26-192)
[2024-02-09 06:17] LABS: Alanine Aminotransferase 9 U/L (0-33); Albumin Level 2.6 g/dL (3.5-5.2); Alkaline Phosphatase 93 U/L (35-105); Anion Gap 15.1 (5-19); Aspartate Amino Transferase 22 U/L (0-32); Blood Urea Nitrogen 24 mg/dL (8-23); C Reactive Protein 23.2 mg/L (0.0-4.9); Calcium 8.8 mg/dL (8.5-10.5); Carbon Dioxide 21 mmol/L (22-29); Chloride 111 mmol/L (98-107); Creatinine Clr Calc Pharmacy 39.6262; Globulin 2.8 g/dL (1.3-4.6); Glucose 197 mg/dL (65-115); Magnesium 1.2 mg/dL (1.7-2.3); Osmolality Calculated 308 mOsm/kg (285-295); Phosphorus 1.5 mg/dL (2.5-4.5); Potassium 3.1 mmol/L (3.5-5.1); Sodium 144 mmol/L (136-145); Total Bilirubin 1.7 mg/dL (0.15-1.2); Total Protein 5.4 g/dL (6.6-8.7)
[2024-02-09 06:18] LABS: Procalcitonin 0.15 ng/mL (0-0.5)
[2024-02-09 06:26] LABS: Glucose Point of Care 174 mg/dL (70-110)
--- NOTE | 2024-02-09 06:49 | XRR_ITS ---
PROCEDURE INFORMATION: Exam: XR Chest Exam date and time: 02/09/2024 7:00 AM Age: 78 years old Clinical indication: Device placement; Ng tube; Additional info: Ng placed TECHNIQUE: Imaging protocol: Radiologic exam of the chest. Views: 1 view. COMPARISON: CR (ABDOMEN, ) 02/08/2024 7:50 PM FINDINGS: Tubes, catheters and devices: Gastric tube terminates in the stomach. Lungs: Atelectasis or infiltrate in the left lower lobe. Pleural spaces: Unremarkable. No pleural effusion. No pneumothorax. Heart/Mediastinum: Unremarkable. No cardiomegaly. Bones/joints: Unremarkable. XR/XR chest 1V portable [id number] IMPRESSION: Mild opacity at the left lung base.
--- NOTE | 2024-02-09 06:50 | PC.NURSE ---
Patient pulled NG tube out while getting cleaned up by CNAs; re-inserted back into left nare and chest xray has been ordered.
--- NOTE | 2024-02-09 09:17 | PC.NUTR ---
Consult received for tube feeding recommendations. Recommend consideration of Glucerna 1.5 to begin @ 10mls/hr and increase 10mls Q8H as tolerated til goal rate of 30mls/hr, with FWF of 80mls Q4H or per MD discretion. Details in RD assessment.
[2024-02-09] MEDS: folic acid 1 mg Tablet PO ×2 (09:26→17:55)
[2024-02-09] MEDS: gabapentin 300 mg Capsule PO ×2 (09:27→17:55)
[2024-02-09] MEDS: cyanocobalamin 1,000 mcg/mL SDV 1000 MCG IM (09:27)
[2024-02-09] MEDS: potassium phosphate (mEq K) 40 MEQ in sodium chloride 0.9% (100 ml) 100 ML 27.25 MEQ IV (09:28)
[2024-02-09] MEDS: levETIRAcetam 500 MG/100 ML PREMIX 400 MG IV ×2 (09:28→19:25)
[2024-02-09] MEDS: insulin lispro 100 unit/1 mL SUBCUT ×3 (09:28→17:55)
[2024-02-09] MEDS: magnesium sulfate premix 2 GM/50 ML PIGGYBACK IV (09:28)
[2024-02-09 10:42] LABS: Basophils % 0.3 %; Eosinophils # 0.6 10^3/uL (0.0-0.8); Hematocrit 35.1 % (36-47); Lymphocytes # 1.2 10^3/uL (0.8-4.8); Lymphocytes % 15.1 %; Mean Corpuscular HGB Conc 31.6 g/dL (30-55); Mean Corpuscular Hemoglobin 29.2 pg (27-33); Mean Corpuscular Volume 92.4 fl (85-98); Mean Platelet Volume 9.3 fL (7.4-10.4); Monocytes % 12.5 %; Neutrophils % 64.8 %; Nucleated Red Blood Cells % 0 %; Platelet Count 179 10^3/cmm (157-399); Red Cell Distribution Width 15.8 % (12.1-15.1); White Blood Count 7.86 10^3/uL (3.29-11.43)
--- NOTE | 2024-02-09 11:07 | PC.SOCIAL ---
IMM Updated Updated pt's on IMM. No questions voiced. Provided pt a copy. Initialed, dated, & timed copy in chart.
[2024-02-09 11:14] LABS: Glucose Point of Care 212 mg/dL (70-110)
[2024-02-09 14:29] LABS: PROTEIN, TOTAL 5.6 g/dL (6.1-8.1)
--- NOTE | 2024-02-09 15:03 | P.PN_ITS ---
Subjective 2 Subjective: Patient was seen this morning, she is much more alert and awake, she is less drowsy, show her moaning/and groaning has significantly improved, she is alert to person, to place, not to time, she can follow commands such as squeezing my fingers wiggling her toes, continues to have generalized weakness to some degree some encephalopathy she recognizes her at bedside, she denies any pain complaints of abdominal pain complaints, she has NG tube placed, discussed with at bedside that so far her cultures are negative, CSF had 2 WBCs, we resumed her p.o. gabapentin possibly to some degree she was withdrawing from gabapentin, continue IV antibiotics, continue seizure medications, monitor mentation Vitals/I&O/Wt Last Vital Signs Temp 99.1 F 02/09/24 11:58 Pulse 79 02/09/24 11:58 Resp 18 02/09/24 11:58 BP 127/76 02/09/24 11:58 Pulse Ox 96 02/09/24 11:58 O2 Del Method Room Air 02/09/24 11:58 02/09/24 02/09/24 02/09/24 06:59 14:59 22:59 Intake Total 1050 / 3351.2 1295.3409 / 1295.3409 Balance 1050 / 3351.2 1295.3409 / 1295.3409 Weight last 48 hrs Weight 85.593 kg Weight 81.193 kg Physical Exam 2 Const: COMMON NORMALS: no acute distress ORIENTATION/CONSCIOUSNESS: Yes awake, Yes oriented to person, Yes oriented to place and Yes confused; not oriented to time Resp: COMMON NORMALS: normal respiratory effort, No retractions, No use of accessory muscles and clear to auscultation bilaterally AUSCULTATION: clear to auscultation bilaterally Cardio: COMMON NORMALS: regular rate, regular rhythm, S1 normal heart sound present and S2 normal heart sound present RATE: regular rate RHYTHM: r egular rhythm HEART SOUNDS: S1 normal heart sound present and S2 normal heart sound present GI: COMMON NORMALS: Normal to inspection, nondistended, normoactive bowel sounds present and non-tender Extremity: COMMON NORMALS: no pedal edema Neuro: SENSORIUM/ORIENTATION: Yes oriented to person, Yes oriented to place and No oriented to time Data 02/09/24 10:34 02/09/24 05:39 Micro: Microbiology 02/07/24 16:35 Gram Stain - Final Cerebrospinal Fluid CSF Culture - Preliminary 02/05/24 16:06 Urine Culture - Final Urine,Clean Catch A&P Assessment and plan (1) AMS (altered mental status): (2) Volume depletion: (3) Urinary tract infection: Qualifiers: Urinary tract infection type: site unspecified (4) Lymphadenopathy, abdominal: (5) Lymphadenopathy: (6) Pneumonia: (7) KLAUS (acute kidney injury): (8) Toxic encephalopathy: Plan Altered mental status, acute encephalopathy, toxic encephalopathy -UA with evidence of UTI, urine culture no growth, stop zosyn -neurocheck, nih stroke scale, aspiration precuations -She has CT does show bibasilar atelectasis, pleural effusion, there is hyperdense material within the left lower lobe with either calcification or aspirated hyperdense material? He denies any aspiration event, findings are concerning for aspiration pneumonia, she is on room air, no evidence of respiratory stress, deescalate to augmentin -Due to persistent encephalopathy vancomycin added -Follow urine cultures no growth -Follow blood cultures no growth -csf culture no growth -KLAUS, getting up to 1.9, now 1.1, IV fluids -Patient CT of the head does show old bilateral cerebellar hemispheric infarcts age-indeterminate,? MRI brain MR/MR head wo con* [id number] IMPRESSION: Images significantly degraded by motion artifact despite medication. 1. No evidence of restricted diffusion to suggest acute ischemia. 2. No hydrocephalus. 3. Moderate to advanced small vessel changes with moderate parenchymal volume loss. 4. 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 5. No hemosiderin on the susceptibility weighted images. 6. 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 -Chest CT shows 1. Bulky adenopathy involving both axilla, mediastinum and upper abdomen consistent with hematologic malignancy CT/CT chest wo con [id number] IMPRESSION: 1. Bulky adenopathy involving both axilla, mediastinum and upper abdomen consistent with hematologic malignancy 2. Bibasilar atelectasis and pleural effusions -Order LDH 276, haptoglobin 201 -Due to persistent encephalopathy, lumbar puncture ordered, CSF studies so far lackluster, cultures so far no growth, 2 wbc -Leukemia, lymphoma panel, CSF cytology Keppra 500 mg IV twice daily, EEG ordered, have not noticed any significant improvement of her mentation ? She does take gabapentin 300 mg 3 times daily possible withdrawal? # B12, folate, thiamine levels ordered, started on thiamine supplementation, folic acid supplementation, B12 supplementation -Try dysphagia level 4 diet, aspiration precautions ? NG tube placement, trickle tube feeds -Replacing electrolytes potassium, mAgnesian, phosphorus -Therapy eval -Full code -Lovenox for DVT prophylaxis Attestations 2 Medical Necessity Statement*: Patient requires hospitalization for encephalopathy Diagnoses AMS (altered mental status) R41.82 Volume depletion E86.9 Urinary tract infection N39.0 Urinary tract infection type: site unspecified Lymphadenopathy, abdominal R59.0 Lymphadenopathy R59.1 Pneumonia J18.9 KLAUS (acute kidney injury) N17.9 Toxic encephalopathy G92.9
[2024-02-09 15:44] LABS: Blood Urea Nitrogen 19 mg/dL (8-23); Carbon Dioxide 18 mmol/L (22-29); Chloride 108 mmol/L (98-107); Creatinine Clr Calc Pharmacy 43.5889; Glucose 156 mg/dL (65-115); Magnesium 1.6 mg/dL (1.7-2.3); Osmolality Calculated 289 mOsm/kg (285-295); Sodium 137 mmol/L (136-145)
[2024-02-09 16:34] LABS: Glucose Point of Care 200 mg/dL (70-110)
[2024-02-09] MEDS: mirtazapine 15 mg Tablet PO (20:11)
[2024-02-09] MEDS: atorvastatin 40 mg Tablet PO (20:11)
[2024-02-09 20:25] LABS: Glucose Point of Care 194 mg/dL (70-110)
[2024-02-09] MEDS: enoxaparin 40 mg/0.4 mL Syringe SUBCUT (21:07)
[2024-02-09] MEDS: pantoprazole 40 mg SDV IVP (21:07)
[2024-02-09] MEDS: acetaminophen 325 mg Tablet 650 MG PO (23:27)
[2024-02-10] MEDS: gabapentin 300 mg Capsule PO ×3 (01:35→17:34)
[2024-02-10 03:30] VITALS: BP 134/79; PULSE 78; RESP 15; TEMP 37.3; O2SAT 94
[2024-02-10] MEDS: dextrose 5%-sod chloride 0.9% 1,000 ML 75 ML IV (03:38)
[2024-02-10 05:12] LABS: Basophils % 0.3 %; Eosinophils # 0.7 10^3/uL (0.0-0.8); Eosinophils % 7.7 %; Hematocrit 35.2 % (36-47); Lymphocytes # 1.7 10^3/uL (0.8-4.8); Lymphocytes % 19.1 %; Mean Corpuscular HGB Conc 30.1 g/dL (30-55); Mean Corpuscular Volume 96.2 fl (85-98); Mean Platelet Volume 9.6 fL (7.4-10.4); Monocytes # 1.5 10^3/uL (0.2-0.9); Monocytes % 17.4 %; Neutrophils # 4.79 10^3/uL (1.8-7.7); Nucleated Red Blood Cells % 0 %; Platelet Count 150 10^3/cmm (157-399); Red Blood Count 3.66 10^6/uL (3.85-5.65); Red Cell Distribution Width 16.2 % (12.1-15.1)
[2024-02-10 05:31] LABS: Alanine Aminotransferase 9 U/L (0-33); Albumin Level 2.5 g/dL (3.5-5.2); Alkaline Phosphatase 98 U/L (35-105); Anion Gap 14.5 (5-19); Aspartate Amino Transferase 19 U/L (0-32); Blood Urea Nitrogen 21 mg/dL (8-23); C Reactive Protein 22.8 mg/L (0.0-4.9); Calcium 8.4 mg/dL (8.5-10.5); Carbon Dioxide 21 mmol/L (22-29); Chloride 111 mmol/L (98-107); Creatine Phosphokinase 22 U/L (26-192); Globulin 2.2 g/dL (1.3-4.6); Glucose 229 mg/dL (65-115); Magnesium 1.4 mg/dL (1.7-2.3); Osmolality Calculated 306 mOsm/kg (285-295); Phosphorus 2.6 mg/dL (2.5-4.5); Potassium 3.5 mmol/L (3.5-5.1); Sodium 143 mmol/L (136-145); Total Bilirubin 1.3 mg/dL (0.15-1.2); Total Protein 4.7 g/dL (6.6-8.7)
[2024-02-10 05:32] LABS: Lactate (Lactic Acid level) 3.4 mmol/L (0.5-2.2)
[2024-02-10 05:36] LABS: Procalcitonin 0.15 ng/mL (0-0.5)
[2024-02-10 06:38] LABS: Glucose Point of Care 215 mg/dL (70-110)
[2024-02-10 07:57] VITALS: BP 102/50; PULSE 75; RESP 16; TEMP 37.1; O2SAT 93
[2024-02-10] MEDS: amoxicillin-clav 875-125 mg Tablet 1 TAB PO ×2 (09:20→17:32)
[2024-02-10] MEDS: folic acid 1 mg Tablet PO ×2 (09:21→17:32)
[2024-02-10] MEDS: cyanocobalamin 1,000 mcg/mL SDV 1000 MCG IM (09:21)
[2024-02-10] MEDS: clopidogrel 75 mg Tablet PO (09:21)
[2024-02-10] MEDS: insulin lispro 100 unit/1 mL SUBCUT ×2 (09:22→11:55)
[2024-02-10] MEDS: levETIRAcetam 500 MG/100 ML PREMIX 400 MG IV (09:22)
[2024-02-10] MEDS: potassium phosphate (mEq K) 40 MEQ in sodium chloride 0.9% (100 ml) 100 ML 27.25 MEQ IV (09:41)
[2024-02-10] MEDS: magnesium sulfate premix 1 GM/100 ML PIGGYBACK IV (10:28)
--- NOTE | 2024-02-10 11:08 | PC.SLP ---
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
[2024-02-10 11:39] LABS: Glucose Point of Care 213 mg/dL (70-110)
[2024-02-10 11:42] VITALS: BP 112/72; PULSE 80; RESP 14; TEMP 37; O2SAT 95
--- NOTE | 2024-02-10 15:13 | P.PN_ITS ---
Subjective 2 Subjective: Patient was seen this morning, she does awaken, does follow commands but easily falls back asleep, at bedside is worried that the seizure medication is making her drowsy, afebrile overnight, normotensive, on room air Vitals/I&O/Wt Last Vital Signs Temp 98.6 F 02/10/24 11:42 Pulse 80 02/10/24 11:42 Resp 14 02/10/24 11:42 BP 112/72 02/10/24 11:42 Pulse Ox 95 02/10/24 11:42 O2 Del Method Room Air 02/10/24 11:42 02/10/24 02/10/24 02/10/24 06:59 14:59 22:59 Intake Total 1473.5 / 2868.8409 309.090 / 309.090 Balance 1473.5 / 2868.8409 309.090 / 309.090 Weight last 48 hrs Weight 88.507 kg Weight 85.593 kg Physical Exam 2 Const: COMMON NORMALS: no acute distress ORIENTATION/CONSCIOUSNESS: Yes awake and Yes oriented to person; not oriented to place and not oriented to time Eye: COMMON NORMALS: Equal, round and reactive pupils present PUPIL: Yes Equal, round and reactive pupils present Resp: COMMON NORMALS: normal respiratory effort, No retractions, No use of accessory muscles and clear to auscultation bilaterally AUSCULTATION: clear to auscultation bilaterally Cardio: COMMON NORMALS: regular rate, regular rhythm, S1 normal heart sound present and S2 normal heart sound present RATE: regular rate RHYTHM: r egular rhythm HEART SOUNDS: S1 normal heart sound present and S2 normal heart sound present GI: COMMON NORMALS: Normal to inspection, nondistended, normoactive bowel sounds present and non-tender Extremity: COMMON NORMALS: no pedal edema Neuro: SENSORIUM/ORIENTATION: Yes oriented to person, No oriented to place and No oriented to time Data 02/10/24 04:54 02/10/24 04:54 Micro: Microbiology 02/07/24 16:35 Gram Stain - Final Cerebrospinal Fluid CSF Culture - Final A&P Assessment and plan (1) AMS (altered mental status): (2) Volume depletion: (3) Urinary tract infection: Qualifiers: Urinary tract infection type: site unspecified (4) Lymphadenopathy, abdominal: (5) Lymphadenopathy: (6) Pneumonia: (7) KLAUS (acute kidney injury): (8) Toxic encephalopathy: (9) Protein calorie malnutrition: Plan Altered mental status, acute encephalopathy, toxic encephalopathy -UA with evidence of UTI, urine culture no growth, stop zosyn -neurocheck, nih stroke scale, aspiration precuations -She has CT does show bibasilar atelectasis, pleural effusion, there is hyperdense material within the left lower lobe with either calcification or aspirated hyperdense material? He denies any aspiration event, findings are concerning for aspiration pneumonia, she is on room air, no evidence of respiratory stress, deescalate to augmentin -Due to persistent encephalopathy, vancomycin discontinued -Follow urine cultures no growth -Follow blood cultures no growth -csf culture no growth -KLAUS, getting up to 1.9, now 1.1, IV fluids -Patient CT of the head does show old bilateral cerebellar hemispheric infarcts age-indeterminate,? MRI brain MR/MR head wo con* [id number] IMPRESSION: Images significantly degraded by motion artifact despite medication. 1. No evidence of restricted diffusion to suggest acute ischemia. 2. No hydrocephalus. 3. Moderate to advanced small vessel changes with moderate parenchymal volume loss. 4. 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 5. No hemosiderin on the susceptibility weighted images. 6. 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 -Chest CT shows 1. Bulky adenopathy involving both axilla, mediastinum and upper abdomen consistent with hematologic malignancy CT/CT chest wo con [id number] IMPRESSION: 1. Bulky adenopathy involving both axilla, mediastinum and upper abdomen consistent with hematologic malignancy 2. Bibasilar atelectasis and pleural effusions -Order LDH 276, haptoglobin 201 -Due to persistent encephalopathy, lumbar puncture ordered, CSF studies so far lackluster, cultures so far no growth, 2 wbc -Leukemia, lymphoma panel, CSF cytology Keppra 500 mg IV twice daily, EEG ordered, have not noticed any significant improvement of her mentation, discontinued ? She does take gabapentin 300 mg 3 times daily possible withdrawal? Presumed through PEG tube # B12, folate, thiamine levels ordered, started on thiamine supplementation, folic acid supplementation, B12 supplementation -Try dysphagia level 4 diet, aspiration precautions ? NG tube placement, trickle tube feeds -Replacing electrolytes potassium, mAgnesian, phosphorus -Therapy eval -Full code -Lovenox for DVT prophylaxis Plan for today replace electrolytes, advance diet on PEG tube feedings, hold Keppra, encourage p.o. intake, up out of bed into a chair Attestations 2 Medical Necessity Statement*: Patient requires hospitalization for altered mental status, Diagnoses AMS (altered mental status) R41.82 Volume depletion E86.9 Urinary tract infection N39.0 Urinary tract infection type: site unspecified Lymphadenopathy, abdominal R59.0 Lymphadenopathy R59.1 Pneumonia J18.9 KLAUS (acute kidney injury) N17.9 Toxic encephalopathy G92.9 Protein calorie malnutrition E46
[2024-02-10 16:00] VITALS: BP 114/73; PULSE 79; RESP 15; TEMP 36.6; O2SAT 94
[2024-02-10 16:41] LABS: Glucose Point of Care 136 mg/dL (70-110)
--- NOTE | 2024-02-10 16:47 | PC.NURSE ---
jevity 1.5
--- NOTE | 2024-02-10 16:48 | PC.NURSE ---
hung new bottle of 1.5 Jevity at 1215.
--- NOTE | 2024-02-10 17:46 | PC.NURSE ---
feeding I tried feeding patient at noon and dinner time with no success. At noon i put a little on the spoon, placed it on her tongue but couldn't get her to swallow it. I then cleaned her mouth with a swab hoping patient would try to suck on the swab, she couldn't do it. At dinner I tried again to get her to eat with no results again. patient wouldn't close her mouth to even swallow. I told that we would continue to try to get her to eat.
[2024-02-10 19:51] VITALS: BP 125/76; PULSE 92; RESP 16; TEMP 37.3; O2SAT 96
[2024-02-10 20:02] LABS: Glucose Point of Care 187 mg/dL (70-110)
[2024-02-10] MEDS: atorvastatin 40 mg Tablet PO (21:33)
[2024-02-10] MEDS: mirtazapine 15 mg Tablet PO (21:33)
[2024-02-10] MEDS: enoxaparin 40 mg/0.4 mL Syringe SUBCUT (21:34)
[2024-02-10] MEDS: pantoprazole 40 mg SDV IVP (21:34)
[2024-02-11] VITALS (10 sets, daily range): BP systolic 99–155; BP diastolic 60–94; PULSE 82–93; RESP 15–20; TEMP 36.5–37.6; O2SAT 92–95
[2024-02-11] MEDS: gabapentin 300 mg Capsule PO ×3 (01:31→17:57)
[2024-02-11 06:14] LABS: Glucose Point of Care 270 mg/dL (70-110)
[2024-02-11 06:16] LABS: Basophils % 0.4 %; Eosinophils # 0.6 10^3/uL (0.0-0.8); Eosinophils % 6.6 %; Hematocrit 36.2 % (36-47); Lymphocytes # 1.8 10^3/uL (0.8-4.8); Lymphocytes % 19.6 %; Mean Corpuscular HGB Conc 30.7 g/dL (30-55); Mean Corpuscular Hemoglobin 29.2 pg (27-33); Mean Corpuscular Volume 95.3 fl (85-98); Mean Platelet Volume 9.8 fL (7.4-10.4); Monocytes # 1.5 10^3/uL (0.2-0.9); Monocytes % 15.5 %; Neutrophils # 5.39 10^3/uL (1.8-7.7); Neutrophils % 57.5 %; Nucleated Red Blood Cells % 0 %; Platelet Count 171 10^3/cmm (157-399); Red Cell Distribution Width 16.6 % (12.1-15.1); White Blood Count 9.38 10^3/uL (3.29-11.43)
[2024-02-11 06:21] LABS: Alanine Aminotransferase 10 U/L (0-33); Albumin Level 2.4 g/dL (3.5-5.2); Alkaline Phosphatase 105 U/L (35-105); Blood Urea Nitrogen 25 mg/dL (8-23); Carbon Dioxide 16 mmol/L (22-29); Chloride 111 mmol/L (98-107); Globulin 3.2 g/dL (1.3-4.6); Glucose 250 mg/dL (65-115); Magnesium 1.7 mg/dL (1.7-2.3); Osmolality Calculated 307 mOsm/kg (285-295); Phosphorus 2.8 mg/dL (2.5-4.5); Sodium 142 mmol/L (136-145); Total Bilirubin 1.3 mg/dL (0.15-1.2); Total Protein 5.6 g/dL (6.6-8.7)
[2024-02-11 06:22] LABS: Creatinine Clr Calc Pharmacy 45.0024
[2024-02-11 06:23] LABS: Anion Gap 19.5 (5-19); Aspartate Amino Transferase 25 U/L (0-32); Potassium 4.5 mmol/L (3.5-5.1)
[2024-02-11] MEDS: insulin lispro 100 unit/1 mL SUBCUT ×3 (09:24→17:57)
[2024-02-11] MEDS: cyanocobalamin 1,000 mcg/mL SDV 1000 MCG IM (09:25)
[2024-02-11] MEDS: amoxicillin-clav 875-125 mg Tablet 1 TAB PO ×2 (09:25→17:56)
[2024-02-11] MEDS: clopidogrel 75 mg Tablet PO (09:25)
[2024-02-11] MEDS: folic acid 1 mg Tablet PO ×2 (09:25→17:57)
[2024-02-11 11:06] LABS: Glucose Point of Care 256 mg/dL (70-110)
--- NOTE | 2024-02-11 14:01 | P.PN_ITS ---
Subjective 2 Subjective: Patient was seen this morning, she is alert to person, not to place, to time at bedside tells me that yesterday evening she was very alert and awake, she is quite sleepy this morning, she is also sat up in a chair yesterday Vitals/I&O/Wt Last Vital Signs Temp 97.8 F 02/11/24 11:51 Pulse 88 02/11/24 11:51 Resp 16 02/11/24 11:51 BP 115/71 02/11/24 12:46 Pulse Ox 93 02/11/24 11:51 O2 Del Method Room Air 02/11/24 11:51 02/10/24 02/11/24 02/11/24 22:59 06:59 14:59 Intake Total 959.090 360 / 1319.090 Balance 959.090 360 / 1319.090 Weight last 48 hrs Weight 90.582 kg Weight 88.507 kg Physical Exam 2 Const: COMMON NORMALS: no acute distress Eye: COMMON NORMALS: Equal, round and reactive pupils present and EOMs intact bilaterally PUPIL: Yes Equal, round and reactive pupils present Resp: COMMON NORMALS: normal respiratory effort, No retractions, No use of accessory muscles and clear to auscultation bilaterally AUSCULTATION: clear to auscultation bilaterally Cardio: COMMON NORMALS: regular rate, regular rhythm, S1 normal heart sound present and S2 normal heart sound present RATE: regular rate RHYTHM: r egular rhythm HEART SOUNDS: S1 normal heart sound present and S2 normal heart sound present GI: COMMON NORMALS: Normal to inspection, nondistended, normoactive bowel sounds present and non-tender Extremity: COMMON NORMALS: no pedal edema Psych: COMMON NORMALS: mental status grossly normal Data 02/11/24 06:10 02/11/24 04:16 Micro: Microbiology 02/05/24 21:47 Blood Culture - Final Blood NO GROWTH AFTER 5 DAYS 02/05/24 21:37 Blood Culture - Final Blood NO GROWTH AFTER 5 DAYS 02/07/24 16:35 Gram Stain - Final Cerebrospinal Fluid CSF Culture - Final A&P Assessment and plan (1) AMS (altered mental status): (2) Volume depletion: (3) Urinary tract infection: Qualifiers: Urinary tract infection type: site unspecified (4) Lymphadenopathy, abdominal: (5) Lymphadenopathy: (6) Pneumonia: (7) KLAUS (acute kidney injury): (8) Toxic encephalopathy: (9) Protein calorie malnutrition: Plan Altered mental status, acute encephalopathy, toxic encephalopathy -UA with evidence of UTI, urine culture no growth, stop zosyn -neurocheck, nih stroke scale, aspiration precuations -She has CT does show bibasilar atelectasis, pleural effusion, there is hyperdense material within the left lower lobe with either calcification or aspirated hyperdense material? He denies any aspiration event, findings are concerning for aspiration pneumonia, she is on room air, no evidence of respiratory stress, deescalate to augmentin -Due to persistent encephalopathy, vancomycin discontinued -Follow urine cultures no growth -Follow blood cultures no growth -csf culture no growth -KLAUS, getting up to 1.9, now 1.1, -Patient CT of the head does show old bilateral cerebellar hemispheric infarcts age-indeterminate,? MRI brain MR/MR head wo con* [id number] IMPRESSION: Images significantly degraded by motion artifact despite medication. 1. No evidence of restricted diffusion to suggest acute ischemia. 2. No hydrocephalus. 3. Moderate to advanced small vessel changes with moderate parenchymal volume loss. 4. 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 5. No hemosiderin on the susceptibility weighted images. 6. 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 -Chest CT shows 1. Bulky adenopathy involving both axilla, mediastinum and upper abdomen consistent with hematologic malignancy CT/CT chest wo con [id number] IMPRESSION: 1. Bulky adenopathy involving both axilla, mediastinum and upper abdomen consistent with hematologic malignancy 2. Bibasilar atelectasis and pleural effusions -Order LDH 276, haptoglobin 201 -Due to persistent encephalopathy, lumbar puncture ordered, CSF studies so far lackluster, cultures so far no growth, 2 wbc -Leukemia, lymphoma panel, CSF cytology Keppra 500 mg IV twice daily, EEG ordered, have not noticed any significant improvement of her mentation, decrease dose to 250 twice daily ? She does take gabapentin 300 mg 3 times daily possible withdrawal? Presumed through PEG tube # B12, folate, thiamine levels ordered, started on thiamine supplementation, folic acid supplementation, B12 supplementation -Try dysphagia level 4 diet, aspiration precautions ? NG tube placement, trickle tube feeds -Replacing electrolytes potassium, mAgnesian, phosphorus -Therapy eval -Full code -Lovenox for DVT prophylaxis Plan for today replace electrolytes, advance diet on PEG tube feedings, hold Keppra, encourage p.o. intake, up out of bed into a chair Attestations 2 Medical Necessity Statement*: Patient requires hospitalization for persistent encephalopathy Diagnoses AMS (altered mental status) R41.82 Volume depletion E86.9 Urinary tract infection N39.0 Urinary tract infection type: site unspecified Lymphadenopathy, abdominal R59.0 Lymphadenopathy R59.1 Pneumonia J18.9 KLAUS (acute kidney injury) N17.9 Toxic encephalopathy G92.9 Protein calorie malnutrition E46
--- NOTE | 2024-02-11 14:05 | CTR_ITS ---
PROCEDURE INFORMATION: Exam: CT Head Without Contrast Exam date and time: 02/11/2024 8:31 PM Age: 78 years old Clinical indication: Altered mental status/memory loss; Patient HX: Severe lethargy. History of chronic bilateral cerebellar infarcts. ; Additional info: AMS TECHNIQUE: Imaging protocol: Computed tomography of the head without contrast. Radiation optimization: All CT scans at this facility use at least one of these dose optimization techniques: automated exposure control; mA and/or kV adjustment per patient size (includes targeted exams where dose is matched to clinical indication); or iterative reconstruction. COMPARISON: MR head wo con* [id number] 02/06/2024 11:30 AM RADIATION DOSE METRICS: Total DLP (mGy-cm): 1155.38 FINDINGS: Brain: No hemorrhage. No edema. Moderate diffuse cerebral atrophy and sequela of chronic small vessel ischemic disease. Old infarct noted in the left cerebellar hemisphere. Old lacunar infarcts seen within the right cerebellar hemisphere. No mass effect. Cerebral ventricles: No ventriculomegaly. Paranasal sinuses: Visualized sinuses are unremarkable. No fluid levels. Mastoid air cells: Visualized mastoid air cells are well aerated. Bones: Unremarkable. No acute fracture. Soft tissues: Unremarkable. CT/CT head wo con* [id number] IMPRESSION: No acute intracranial abnormality.
[2024-02-11] MEDS: polyethylene glycol 3350 Pkt 17 gm PEG-TUBE (15:19)
[2024-02-11] MEDS: levETIRAcetam 500 mg Tablet 250 MG PEG-TUBE (15:19)
[2024-02-11] MEDS: DOCUSATE SODIUM 100 MG/10 ML UDC PEG-TUBE ×2 (15:48→17:56)
[2024-02-11 16:44] LABS: Glucose Point of Care 248 mg/dL (70-110)
[2024-02-11] MEDS: atorvastatin 40 mg Tablet PO (20:44)
[2024-02-11] MEDS: pantoprazole 40 mg SDV IVP (20:45)
[2024-02-11 20:50] LABS: Glucose Point of Care 204 mg/dL (70-110)
[2024-02-11] MEDS: enoxaparin 40 mg/0.4 mL Syringe SUBCUT (21:00)
[2024-02-11] MEDS: saliva stimulant spray 30 mL Btl 1 SPRAY MUCOUS MEM (23:24)
[2024-02-12] VITALS (15 sets, daily range): BP systolic 95–127; BP diastolic 50–82; PULSE 80–89; RESP 16–19; TEMP 36.3–37.3; O2SAT 92–95
[2024-02-12] MEDS: gabapentin 300 mg Capsule PO ×3 (02:47→17:48)
[2024-02-12] MEDS: levETIRAcetam 500 mg Tablet 250 MG PEG-TUBE ×2 (02:47→15:21)
[2024-02-12] MEDS: acetaminophen 325 mg Tablet 650 MG PO (02:48)
[2024-02-12 06:27] LABS: Glucose Point of Care 217 mg/dL (70-110)
[2024-02-12 08:45] LABS: ABNORMAL PROTEIN BAND 1 0.2 g/dL (NONE DETECTED); ALBUMIN 2.6 g/dL (3.8-4.8); ALPHA 1 GLOBULIN 0.3 g/dL (0.2-0.3); ALPHA 2 GLOBULIN 0.7 g/dL (0.5-0.9); BETA 1 GLOBULIN 0.3 g/dL (0.4-0.6); BETA 2 GLOBULIN 0.4 g/dL (0.2-0.5); GAMMA GLOBULIN 1.3 g/dL (0.8-1.7)
[2024-02-12] MEDS: amoxicillin-clav 875-125 mg Tablet 1 TAB PO ×2 (09:02→17:48)
[2024-02-12] MEDS: cyanocobalamin 1,000 mcg/mL SDV 1000 MCG IM (09:02)
[2024-02-12] MEDS: DOCUSATE SODIUM 100 MG/10 ML UDC PEG-TUBE ×2 (09:02→17:48)
[2024-02-12] MEDS: clopidogrel 75 mg Tablet PO (09:02)
[2024-02-12] MEDS: polyethylene glycol 3350 Pkt 17 gm PEG-TUBE (09:02)
[2024-02-12] MEDS: folic acid 1 mg Tablet PO ×2 (09:02→17:48)
[2024-02-12] MEDS: insulin lispro 100 unit/1 mL SUBCUT ×3 (09:03→17:51)
--- NOTE | 2024-02-12 10:06 | PC.SOCIAL ---
IMM Update pg 2 of IMM Updated and reviewed w/patient. Copy provided and copy dated, initialed and placed in chart.
[2024-02-12 11:29] LABS: Glucose Point of Care 230 mg/dL (70-110)
[2024-02-12 13:04] LABS: Lymphoma Profile (BBPL) See Report
--- NOTE | 2024-02-12 13:50 | P.CONIM_ITS ---
Providers/Reason For Consult 2 Consulting Physician/Specialty*: Mohindre Ray MD neurology and epilepsy Reason for Consult*: Altered mental status and dysphagia nonfluent aphasia Attending Physician: John Paul Tejeda MD Primary Care Provider: Maryann Webb NP History of Present Illness History of Present Illness Analilia Arvizu is a 78 year old female with a history of acute renal injury, protein calorie malnutrition, toxic encephalopathy, lymphadenopathy of the abdomen, type 2 diabetes mellitus, peripheral neuropathy, and urinary tract infections. The patient underwent head MRI on 02/06/2024 which revealed Moderate to advanced small vessel changes with moderate parenchymal volume loss. 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 No hemosiderin on the susceptibility weighted images. 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 And repeat noncontrast head CT 02/11/2024 which revealed no acute findings. Metabolic lab was also obtained and revealed no significant findings. As a result neurology consult was obtained. On neurological examination today the patient is alert. Her is at the bedside. Patient follows commands but has dysarthria nonfluent aphasia and is unable to protrude her tongue. Patient has no gag reflex. Drug allergies: None Current medications: Coreg 12.5 mg p.o. twice daily Plavix 75 mg p.o. daily Pepcid 40 mg p.o. daily Neurontin 300 mg p.o. 3 times daily Pravastatin 40 mg p.o. q. evening Habits: None Family history: Unknown Review of Systems 2 General: Reports: 10 or more systems reviewed and unremarkable except in HPI and below Medications/Allergies Home Medications Medication Instructions Recorded Confirmed Last Taken Type carvedilol 12.5 mg tablet 12.5 mg PO BID 12/30/22 02/05/24 Unknown History clopidogrel 75 mg tablet (Plavix) 75 mg PO DAILY 12/30/22 02/05/24 Unknown History gabapentin 300 mg capsule 300 mg PO TID 12/30/22 02/05/24 Unknown History pravastatin 40 mg tablet 40 mg PO DAILY 12/30/22 02/05/24 Unknown History famotidine 40 mg tablet 40 mg PO DAILY 02/05/24 02/05/24 Unknown History Allergies Allergy/AdvReac Type Severity Reaction Status Date / Time No Known Allergies Allergy Verified 12/30/22 07:42 Current Medications Generic Name Dose Route Start Last Admin Trade Name Freq PRN Reason Stop Dose Admin Acetaminophen 650 mg 02/05/24 21:26 02/12/24 02:48 Acetaminophen 325 Mg Tablet PO 650 mg Q6H PRN Administration Mild/Mod Pain Or Temp >/= 101 Acetaminophen 650 mg 02/06/24 23:02 02/07/24 01:08 Acetaminophen 650 Mg Supp DC 650 mg Q6H PRN Administration PAIN Amoxicillin/Clavulanate Potassium 1 tab 02/10/24 09:00 02/12/24 09:02 Amoxicillin-Clav 875-125 Mg Tablet PO 1 tab BID DAREN Administration Protocol Atorvastatin Calcium 40 mg 02/09/24 21:00 02/11/24 20:44 Atorvastatin 40 Mg Tablet PO 40 mg BEDTIME DAREN Administration Clopidogrel Bisulfate 75 mg 02/10/24 09:00 02/12/24 09:02 Clopidogrel 75 Mg Tablet PO 75 mg DAILY DAREN Administration Cyanocobalamin 1,000 mcg 02/09/24 09:00 02/12/24 09:02 Cyanocobalamin 1,000 Mcg/Ml Sdv IM 1,000 mcg DAILY DAREN Administration Docusate Sodium 100 mg 02/11/24 15:45 02/12/24 09:02 Docusate Sodium 100 Mg/10 Ml Udc PEG-TUBE 100 mg BID DAREN Administration Enoxaparin Sodium 40 mg 02/09/24 22:00 02/11/24 21:00 Enoxaparin 40 Mg/0.4 Ml Syringe SUBCUT 40 mg Q24H DAREN Administration Folic Acid 1 mg 02/08/24 18:00 02/12/24 09:02 Folic Acid 1 Mg Tablet PO 1 mg BID DAREN Administration Gabapentin 300 mg 02/07/24 10:30 02/12/24 12:17 Gabapentin 300 Mg Capsule PO 300 mg Q8H DAREN Administration Insulin Human Lispro 0 unit 02/06/24 08:00 02/12/24 12:17 Insulin Lispro 100 Unit/1 Ml SUBCUT 6 unit TIDWM DAREN Administration Protocol Lanolin 1 applic 02/08/24 08:34 02/08/24 09:11 Lanolin Oint 7 Gm TOPICAL 1 applic PRN PRN Administration DRYNESS Levetiracetam 250 mg 02/11/24 14:15 02/12/24 02:47 Levetiracetam 500 Mg Tablet PEG-TUBE 250 mg Q12H DAREN Administration Morphine Sulfate 2 mg 02/05/24 21:26 02/09/24 03:45 Morphine 4 Mg/Ml Sdv 1 Ml IVP 2 mg Q4H PRN Administration SEVERE PAIN Pantoprazole Sodium 40 mg 02/05/24 21:45 02/11/24 20:45 Pantoprazole 40 Mg Sdv IVP 40 mg Q24H DAREN Administration Polyethylene Glycol 17 gm 02/11/24 14:05 02/12/24 09:02 Polyethylene Glycol 3350 Pkt 17 Gm PEG-TUBE 17 gm DAILY DAREN Administration Saliva Substitute 1 spray 02/11/24 17:53 02/11/24 23:24 Saliva Stimulant [place] 30 Ml Btl MUCOUS MEM 1 spray Q2H PRN Administration DRYNESS Thiamine HCl 100 mg 02/08/24 13:45 02/12/24 09:03 Thiamine 100 Mg/Ml Sdv IVP 100 mg DAILY DAREN Administration PFSH Acute 2 PFSH: Medical History HTN (hypertension) with goal to be determined CAD (coronary artery disease) Surgical History History of hysterectomy History of appendectomy History of cholecystectomy Family History Mother Cancer Social History Smoking and tobacco/nicotine status: never used tobacco/nicotine Vitals/I&O/Wt Last Vital Signs Temp 97.9 F 02/12/24 11:48 Pulse 80 02/12/24 11:48 Resp 16 02/12/24 11:48 BP 127/82 02/12/24 11:48 Pulse Ox 95 02/12/24 11:48 O2 Del Method Room Air 02/12/24 11:48 02/11/24 02/12/24 02/12/24 22:59 06:59 14:59 Intake Total 0 / 0 724 / 724 Output Total Balance 0 / 0 723 / 723 Weight last 48 hrs Weight 193 lb 1.6 oz Weight 199 lb 11.2 oz Physical Exam 2 Narrative: The patient is alert. She is sitting up in the Chiara chair her is at the bedside along with the patient's nurse. Patient is alert. Patient follows commands. There is no obvious facial weakness. But, the patient has significant dysarthria nonfluent aphasia. Patient unable to protrude her tongue. There is no gag reflex. Pupils 3 to 4 mm round reactive to light. Patient does follow commands and moves her feet to command as well as squeeze my hand to command. Sensory examination intact to touch. Plantar responses flexor bilaterally. There was no clonus. Throat clear. Lungs clear. Heart regular rhythm and rate. Extremities revealed no obvious cyanosis. Data 02/11/24 06:10 02/11/24 04:16 A&P Assessment and plan (1) Non-fluent aphasia: Impression: 1. Nonfluent aphasia suggestive of brainstem stroke 2. Chronic cerebellar infarction 3. Dysphagia Plan: 1. Recommend obtaining lab for TSH and free T4 to assess for 2. Recommend obtaining carotid duplex study to assess for carotid or vertebral artery stenosis 3. Agree with plans for PEG placement 4. Agree with Plavix and cholesterol-lowering agent (2) Dysphagia: (3) Remote history of stroke: Consult Attestations 2 Medical Necessity Statement: The patient was evaluated by neurology for reports of altered mental status and nonfluent aphasia Coding Level of Care Code 27384 Diagnoses Non-fluent aphasia R47.01 Dysphagia R13.10 Remote history of stroke Z86.73
--- NOTE | 2024-02-12 14:59 | P.PN_ITS ---
Subjective 2 Subjective: - Patient was seen this morning - is at bedside ? She is alert to person, not to place, not to time, she can follow some commands such as wiggling her toes squeezing my fingers, continues to have poor oral intake, she tends to hold onto things in her mouth, she does localize pain, pupils equal round reactive to light, but does not initiate swallowing # Currently NG tube in place, receiving oral feedings # Discussed with deanna at bedside that the concern is for her long-term prognosis, my worry is is that she has had a neurologic event such as a brainstem stroke or progression of her multi-infarct dementia to explain her persistent encephalopathy, she is currently in a delirious state, but given her current clinical findings and worried that she has had a significant brainstem event or progression of her multi-infarct dementia, will consult neurology, so far her cultures have been unremarkable her CSF studies unremarkable however she remains in a deconditioned state, discussed her overall prognosis, remains guarded, discussed options of hospice versus continue medical invention pursuing feeding tube placement and placement to long-term care facility, discussed giving him time to think on this ? Patient was seen this afternoon ex- is at bedside, also spoke to patient's son over the phone while patient and ex- were in the room ? Patient's son is Brayden Greenberg, Analilia has another son and another daughter that lives in the state there are not involved in Analilia's care on the day today, was not able to speak to them, patient's ex- Lion and Analilia have been together for more than 10 years even after their divorce and he is intimately involved in her care, and lives with Analilia, he takes care of Analilia ? I discussed her overall clinical progress, so far she has not responded as I hoped to seizure medications, to electrolyte replacement therapy, to antibiotics, all her tests specifically blood cultures, CSF studies, urine cultures so far have been unremarkable, given her MRI findings and repeat CT scan findings she likely has baseline multi-infarct dementia, she has had a history of stroke the question that she had a new stroke given her persistent encephalopathy, and her neurologic findings I am worried that she has had a brainstem event or progression of her multi-infarct dementia ? As above the options I discussed was continue medical inventions pursuing a feeding tube placement for long-term nutrition, PT OT speech therapy, outpatient rehab facility placement and giving her time the other option I discussed was hospice care ? Discussed risks and benefits positive and negatives of all options ultimately as Mickey and Lion know even the best ultimately the goal is to reflect Analilia's wishes, I do want to make sure that her other children are included in the decision making, I was hoping to come to a shared decision among all family members ? Mickey will talk to the rest of his siblings, will give the family and Lion time to make the decision ? Patient was seen in the afternoon she is sitting up in a chair, she can hold her head position she is moving her upper and lower extremities, she can follow some commands but at other times she remains delirious, pupils are equal round and reactive to light, Babinski's upward bilaterally, she withdraws from pain she localizes pain, does not have a good cough reflex, does not have a good gag reflex, Vitals/I&O/Wt Last Vital Signs Temp 97.9 F 02/12/24 11:48 Pulse 80 02/12/24 11:48 Resp 16 02/12/24 11:48 BP 127/82 02/12/24 11:48 Pulse Ox 95 02/12/24 11:48 O2 Del Method Room Air 02/12/24 11:48 02/11/24 02/12/24 02/12/24 22:59 06:59 14:59 Intake Total 0 / 0 724 / 724 Output Total Balance 0 / 0 723 / 723 Weight last 48 hrs Weight 87.589 kg Weight 90.582 kg Physical Exam 2 Const: COMMON NORMALS: no acute distress EXAM LIMITATIONS: altered mental status ORIENTATION/CONSCIOUSNESS: Yes awake and Yes oriented to person; not oriented to place, not oriented to time and not confused Neck/C-Spine: COMMON NORMALS: no JVD Resp: COMMON NORMALS: normal respiratory effort, No retractions, No use of accessory muscles and clear to auscultation bilaterally AUSCULTATION: clear to auscultation bilaterally Cardio: COMMON NORMALS: no JVD, regular rate, regular rhythm, S1 normal heart sound present and S2 normal heart sound present RATE: regular rate RHYTHM: regular rhythm HEART SOUNDS: S1 normal heart sound present and S2 normal heart sound present GI: COMMON NORMALS: Normal to inspection, nondistended, normoactive bowel sounds present and non-tender Extremity: COMMON NORMALS: no pedal edema Neuro: SENSORIUM/ORIENTATION: Yes oriented to person, No oriented to place and No oriented to time Data 02/11/24 06:10 02/11/24 04:16 A&P Assessment and plan (1) AMS (altered mental status): (2) Volume depletion: (3) Urinary tract infection: Qualifiers: Urinary tract infection type: site unspecified (4) Lymphadenopathy, abdominal: (5) Lymphadenopathy: (6) Pneumonia: (7) KLAUS (acute kidney injury): (8) Toxic encephalopathy: (9) Protein calorie malnutrition: (10) Multi-infarct dementia: (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: (12) Dysphagia: (13) Goals of care, counseling/discussion: Plan Altered mental status, acute encephalopathy, toxic encephalopathy -Etiology concerning for brainstem stroke, and/or progression of multi-infarct dementia -UA with evidence of UTI, urine culture no growth, stopped zosyn -neurocheck, nih stroke scale, aspiration precuations -She has CT does show bibasilar atelectasis, pleural effusion, there is hyperdense material within the left lower lobe with either calcification or aspirated hyperdense material exhusband denies any aspiration event, findings are concerning for aspiration pneumonia, she is on room air, no evidence of respiratory stress, deescalate to augmentin -But given concerns for brainstem stroke, this certainly fits her clinical condition -Due to persistent encephalopathy, vancomycin discontinued due to no improvement of mentation on vancomycin -Follow urine cultures no growth -Follow blood cultures no growth -csf culture no growth -KLAUS, getting up to 1.9, now 1.1, -Patient CT of the head does show old bilateral cerebellar hemispheric infarcts age-indeterminate, diffuse cerebral atrophy, MRI brain MR/MR head wo con* [id number] IMPRESSION: Images significantly degraded by motion artifact despite medication. 1. No evidence of restricted diffusion to suggest acute ischemia. 2. No hydrocephalus. 3. Moderate to advanced small vessel changes with moderate parenchymal volume loss. 4. 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 5. No hemosiderin on the susceptibility weighted images. 6. 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 -Chest CT shows 1. Bulky adenopathy involving both axilla, mediastinum and upper abdomen consistent with hematologic malignancy CT/CT chest wo con [id number] IMPRESSION: 1. Bulky adenopathy involving both axilla, mediastinum and upper abdomen consistent with hematologic malignancy 2. Bibasilar atelectasis and pleural effusions -Order LDH 276, haptoglobin 201 -Due to persistent encephalopathy, lumbar puncture ordered, CSF studies so far lackluster, cultures so far no growth, 2 wbc -Leukemia, lymphoma panel, CSF cytology pending, but very unlikely that it would be leptomeningeal lymphoma [id number] mg twice daily, EEG ordered, have not noticed any significant improvement of her mentation, decrease dose to 250 twice daily ? She does take gabapentin 300 mg 3 times daily possible withdrawal? Presumed through PEG tube # B12, folate, thiamine levels ordered, started on thiamine supplementation, folic acid supplementation, B12 supplementation -Try dysphagia level 4 diet, aspiration precautions ? NG tube placement, trickle tube feeds -Replacing electrolytes potassium, mAgnesian, phosphorus -Continue Plavix, statin -Therapy eval -Full code -Lovenox for DVT prophylaxis Plan for today goals of care discussion, neurology consulted, monitor mentation, continue nasogastric tube feeds, spoke to patient, spoke to patient's son, family decision, spoke to neurology Attestations 2 Medical Necessity Statement*: Patient requires hospitalization for acute encephalopathy concern for acute brainstem stroke or progression multi-infarct dementia Diagnoses AMS (altered mental status) R41.82 Volume depletion E86.9 Urinary tract infection N39.0 Urinary tract infection type: site unspecified Lymphadenopathy, abdominal R59.0 Lymphadenopathy R59.1 Pneumonia J18.9 KLAUS (acute kidney injury) N17.9 Toxic encephalopathy G92.9 Protein calorie malnutrition E46 Multi-infarct dementia F01.50 Brainstem stroke I63.9 Dysphagia R13.10 Goals of care, counseling/discussion Z71.89
[2024-02-12 15:16] LABS: Alanine Aminotransferase 10 U/L (0-33); Albumin Level 2.6 g/dL (3.5-5.2); Alkaline Phosphatase 107 U/L (35-105); Aspartate Amino Transferase 22 U/L (0-32); Blood Urea Nitrogen 29 mg/dL (8-23); C Reactive Protein 36.7 mg/L (0.0-4.9); Calcium 9.7 mg/dL (8.5-10.5); Carbon Dioxide 20 mmol/L (22-29); Chloride 110 mmol/L (98-107); Creatinine Clr Calc Pharmacy 44.1544; Globulin 3.3 g/dL (1.3-4.6); Glucose 256 mg/dL (65-115); Magnesium 1.7 mg/dL (1.7-2.3); Osmolality Calculated 309 mOsm/kg (285-295); Sodium 142 mmol/L (136-145); Total Protein 5.9 g/dL (6.6-8.7)
[2024-02-12 15:18] LABS: Anion Gap 16.2 (5-19); Free T4 Free Thyroxine 1.21 ng/dL (0.82-1.77); Potassium 4.2 mmol/L (3.5-5.1)
[2024-02-12 15:19] LABS: Thyroid Stimulating Hormone 1.18 uIU/mL (0.27-4.20)
[2024-02-12 16:23] LABS: Basophils % 0.4 %; Eosinophils # 0.6 10^3/uL (0.0-0.8); Eosinophils % 6.3 %; Hematocrit 36.5 % (36-47); Lymphocytes # 2.1 10^3/uL (0.8-4.8); Lymphocytes % 20.8 %; Mean Corpuscular HGB Conc 32.9 g/dL (30-55); Mean Corpuscular Hemoglobin 30.5 pg (27-33); Mean Corpuscular Volume 92.9 fl (85-98); Mean Platelet Volume 10.3 fL (7.4-10.4); Monocytes # 1.7 10^3/uL (0.2-0.9); Monocytes % 17.4 %; Neutrophils # 5.41 10^3/uL (1.8-7.7); Neutrophils % 54.5 %; Nucleated Red Blood Cells % 0 %; Platelet Count 166 10^3/cmm (157-399); Red Blood Count 3.93 10^6/uL (3.85-5.65); Red Cell Distribution Width 16.8 % (12.1-15.1); White Blood Count 9.91 10^3/uL (3.29-11.43)
[2024-02-12 16:49] LABS: Glucose Point of Care 248 mg/dL (70-110)
[2024-02-12 21:08] LABS: Glucose Point of Care 150 mg/dL (70-110)
[2024-02-12] MEDS: enoxaparin 40 mg/0.4 mL Syringe SUBCUT (21:09)
[2024-02-12] MEDS: pantoprazole 40 mg SDV IVP (21:09)
[2024-02-12] MEDS: atorvastatin 40 mg Tablet PO (21:09)
[2024-02-12] MEDS: lanolin oint 7 gm 1 APPLIC TOPICAL (23:01)
[2024-02-12] MEDS: artificial tears Op Soln 15 mL Btl 1 DROP EYE-BOTH (23:01)
[2024-02-12] MEDS: saliva stimulant spray 30 mL Btl 1 SPRAY MUCOUS MEM (23:02)
[2024-02-13] VITALS (8 sets, daily range): BP systolic 102–145; BP diastolic 52–83; PULSE 83–93; RESP 17–22; TEMP 36.6–37.2; O2SAT 90–95
--- NOTE | 2024-02-13 02:12 | PC.NURSE ---
Addendum entered by Quiana Leslie RN 02/13/24 02:21: 250 mg not available as an option in orders. 500 mg in 100 ml is the lowest dose available to choose from. Only give 50 ml (half the bag) to equal 250 mg, added to instructions on order. Original Note: Patient pulled NG tube out. is at bedside, however is sleeping. There is no one-on-one sitter available to sit with patient. Dr. Rosenberg notified. Ordered to leave NG tube out. Dr. Rosenberg notified that patient has Keppra and Gabapentin due to be given through NG tube. Ordered to change PO Keppra to IV Keppra. I called telepharmacy to getting dosing information. Telepharmascist stated that the IV dosing would be equal to the PO dosing, so if the patient is getting 250 mg PO, then it would be 250 mg IV.
[2024-02-13] MEDS: levETIRAcetam 500 MG/100 ML PREMIX 400 MG IV (02:53)
[2024-02-13 06:27] LABS: Glucose Point of Care 142 mg/dL (70-110)
--- NOTE | 2024-02-13 08:05 | USCV_ITS ---
Analilia Arvizu Age: 78 Gender: F : 1945 Exam Date: 02/13/2024 08:45 Ordering Phys: John Paul Tejeda MD Technologist: Exam Location: [facility] [place] Indication: ? cva Risk Factors: Previous Vascular Surgery: Right Brachial BP: / Left Brachial BP: / Right Left Velocity (cm/s) Spectral Plaque Velocity (cm/s) Spectral Plaque Syst/Diast Broadening Syst/Diast Broadening 102.50/7.70 Prox CCA 70.60 / 14.00 64.60/ 14.10 Mid CCA 70.60 / 14.00 100.90/14.10 Distal CCA 107.80/ 15.30 99.60/ 14.10 Prox ICA 46.20 / 6.10 70.60/ 12.70 Mid ICA 68.30 / 17.30 78.30/ 11.40 Distal ICA 73.20 / 16.00 115.20 ECA 108.60 1.00 ICA/CCA 0.70 Antegrade Vertebral Antegrade 42.30/ 8.90 cm/s 43.20/ 12.20 cm/s Bi Subclavian Bi 32.00 147.7 0 CONCLUSIONS Right ICA stenosis <50%. Moderate calcified atheromatous plaque right carotid bulb/ICA. Left ICA stenosis <50%. Moderate calcified atheromatous plaque left carotid bulb/ICA. Normal antegrade Doppler flow noted in the right vertebral artery. Normal antegrade Doppler flow noted in the left vertebral artery. Michelet Guy MD (Electronically Signed) Final Date: 13 February 2024 11:51 S
[2024-02-13 08:13] LABS: Basophils % 0.4 %; Eosinophils # 0.5 10^3/uL (0.0-0.8); Eosinophils % 6.4 %; Hematocrit 37.1 % (36-47); Lymphocytes # 1.8 10^3/uL (0.8-4.8); Lymphocytes % 21.4 %; Mean Corpuscular HGB Conc 29.6 g/dL (30-55); Mean Corpuscular Hemoglobin 28.9 pg (27-33); Mean Corpuscular Volume 97.6 fl (85-98); Mean Platelet Volume 10.2 fL (7.4-10.4); Monocytes # 1.4 10^3/uL (0.2-0.9); Neutrophils # 4.56 10^3/uL (1.8-7.7); Neutrophils % 54.1 %; Nucleated Red Blood Cells % 0 %; Platelet Count 169 10^3/cmm (157-399); Red Cell Distribution Width 16.8 % (12.1-15.1); White Blood Count 8.42 10^3/uL (3.29-11.43)
[2024-02-13 08:30] LABS: Alanine Aminotransferase 9 U/L (0-33); Albumin Level 2.3 g/dL (3.5-5.2); Alkaline Phosphatase 94 U/L (35-105); Anion Gap 14.2 (5-19); Aspartate Amino Transferase 19 U/L (0-32); Blood Urea Nitrogen 27 mg/dL (8-23); Calcium 9.3 mg/dL (8.5-10.5); Carbon Dioxide 23 mmol/L (22-29); Chloride 108 mmol/L (98-107); Creatinine Clr Calc Pharmacy 43.6146; Globulin 2.8 g/dL (1.3-4.6); Glucose 155 mg/dL (65-115); Magnesium 1.5 mg/dL (1.7-2.3); Osmolality Calculated 300 mOsm/kg (285-295); Phosphorus 2.3 mg/dL (2.5-4.5); Potassium 4.2 mmol/L (3.5-5.1); Sodium 141 mmol/L (136-145); Total Bilirubin 1.1 mg/dL (0.15-1.2); Total Protein 5.1 g/dL (6.6-8.7)
[2024-02-13] MEDS: cyanocobalamin 1,000 mcg/mL SDV 1000 MCG IM (10:59)
[2024-02-13 11:21] LABS: Glucose Point of Care 174 mg/dL (70-110)
[2024-02-13] MEDS: dextrose 5%-sod chloride 0.9% 1,000 ML 75 ML IV (14:36)
--- NOTE | 2024-02-13 14:51 | P.PN_ITS ---
Subjective 2 Subjective: - Patient was seen this morning, she is much more alert awake to person, to place, not to time, she follows commands Continues to have a poor cough, continues to have poor gag reflex, withdraws from pain, pupils equal round reactive to light is at bedside he tells me that she talked throughout the night, she is much more alert and awake, ? Patient was seen this afternoon she is alert to person, to place, she follows commands, spoke to speech therapy continues to have poor swallowing ability, she removed her NG tube overnight ? Had a family meeting with Mickey over the phone, with patient's ex- Lion ? Discussed patient's clinical improvement, discussed risks and benefits of PEG tube placement, shared decision making, all parties voiced understanding, all questions answered Mickey and Lion would like to proceed with PEG tube placement as they are pleased with her clinical improvement, her improvement in her mentation discussed general surgery to place PEG tube tomorrow ? Agreeable to placement to residential facility, will work on that also Vitals/I&O/Wt Last Vital Signs Temp 98.6 F 02/13/24 12:14 Pulse 91 02/13/24 12:14 Resp 18 02/13/24 12:14 BP 112/70 02/13/24 12:14 Pulse Ox 94 02/13/24 12:14 O2 Del Method Room Air 02/13/24 12:14 02/12/24 02/13/24 02/13/24 22:59 06:59 14:59 Intake Total 0 / 0 50 / 50 Balance 0 / 0 50 / 50 Weight last 48 hrs Weight 85.684 kg Weight 87.589 kg Physical Exam 2 Const: COMMON NORMALS: no acute distress ORIENTATION/CONSCIOUSNESS: Yes awake, Yes oriented to person and Yes oriented to place; not oriented to time Resp: COMMON NORMALS: normal respiratory effort, No retractions, No use of accessory muscles and clear to auscultation bilaterally AUSCULTATION: clear to auscultation bilaterally Cardio: COMMON NORMALS: regular rate, regular rhythm, S1 normal heart sound present and S2 normal heart sound present RATE: regular rate RHYTHM: r egular rhythm HEART SOUNDS: S1 normal heart sound present and S2 normal heart sound present GI: COMMON NORMALS: Normal to inspection, nondistended, normoactive bowel sounds present and non-tender Extremity: COMMON NORMALS: no pedal edema Neuro: SENSORIUM/ORIENTATION: Yes oriented to person, Yes oriented to place and No oriented to time Psych: COMMON NORMALS: mental status grossly normal Data 02/13/24 07:47 02/13/24 07:47 A&P Assessment and plan (1) AMS (altered mental status): (2) Volume depletion: (3) Urinary tract infection: Qualifiers: Urinary tract infection type: site unspecified (4) Lymphadenopathy, abdominal: (5) Lymphadenopathy: (6) Pneumonia: (7) KLAUS (acute kidney injury): (8) Toxic encephalopathy: (9) Protein calorie malnutrition: (10) Multi-infarct dementia: (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: (12) Dysphagia: (13) Goals of care, counseling/discussion: Plan Altered mental status, acute encephalopathy, toxic encephalopathy -Etiology concerning for brainstem stroke, and/or progression of multi-infarct dementia -UA with evidence of UTI, urine culture no growth, stopped zosyn -neurocheck, nih stroke scale, aspiration precuations -She has CT does show bibasilar atelectasis, pleural effusion, there is hyperdense material within the left lower lobe with either calcification or aspirated hyperdense material exhusband denies any aspiration event, findings are concerning for aspiration pneumonia, she is on room air, no evidence of respiratory stress, deescalate to augmentin -But given concerns for brainstem stroke, this certainly fits her clinical condition -Due to persistent encephalopathy, vancomycin discontinued due to no improvement of mentation on vancomycin -Follow urine cultures no growth -Follow blood cultures no growth -csf culture no growth -KLAUS, getting up to 1.9, now 1.1, -Patient CT of the head does show old bilateral cerebellar hemispheric infarcts age-indeterminate, diffuse cerebral atrophy, MRI brain MR/MR head wo con* [id number] IMPRESSION: Images significantly degraded by motion artifact despite medication. 1. No evidence of restricted diffusion to suggest acute ischemia. 2. No hydrocephalus. 3. Moderate to advanced small vessel changes with moderate parenchymal volume loss. 4. 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 5. No hemosiderin on the susceptibility weighted images. 6. 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 -Chest CT shows 1. Bulky adenopathy involving both axilla, mediastinum and upper abdomen consistent with hematologic malignancy CT/CT chest wo con [id number] IMPRESSION: 1. Bulky adenopathy involving both axilla, mediastinum and upper abdomen consistent with hematologic malignancy 2. Bibasilar atelectasis and pleural effusions -Order LDH 276, haptoglobin 201 -Due to persistent encephalopathy, lumbar puncture ordered, CSF studies so far lackluster, cultures so far no growth, 2 wbc -Leukemia, lymphoma panel, CSF cytology pending, but very unlikely that it would be leptomeningeal lymphoma [id number] mg twice daily, EEG ordered, have not noticed any significant improvement of her mentation, decrease dose to 250 twice daily ? She does take gabapentin 300 mg 3 times daily possible withdrawal? Presumed through PEG tube # B12, folate, thiamine levels ordered, started on thiamine supplementation, folic acid supplementation, B12 supplementation -Try dysphagia level 4 diet, aspiration precautions ? NG tube placement, trickle tube feeds -Replacing electrolytes potassium, mAgnesian, phosphorus -Continue Plavix, statin -Therapy eval -Full code -Lovenox for DVT prophylaxis n.p.o. at midnight, general surgery consulted for PEG tube placement IV fluids Attestations 2 Medical Necessity Statement*: Patient requires hospitalization for PEG tube placement, acute encephalopathy, concern for brainstem CVA Diagnoses AMS (altered mental status) R41.82 Volume depletion E86.9 Urinary tract infection N39.0 Urinary tract infection type: site unspecified Lymphadenopathy, abdominal R59.0 Lymphadenopathy R59.1 Pneumonia J18.9 KLAUS (acute kidney injury) N17.9 Toxic encephalopathy G92.9 Protein calorie malnutrition E46 Multi-infarct dementia F01.50 Brainstem stroke I63.9 Dysphagia R13.10 Goals of care, counseling/discussion Z71.89
[2024-02-13 16:26] LABS: Glucose Point of Care 190 mg/dL (70-110)
[2024-02-13] MEDS: insulin lispro 100 unit/1 mL SUBCUT (17:45)
[2024-02-13 17:55] LABS: Adenosine Deaminase CSF 0.5 U/L (<7.0)
--- NOTE | 2024-02-13 19:25 | PC.NURSE ---
This nurse requested IV keppra since pt unable to swallow and no NG tube in place, and informed Dr. Tejeda that this nurse did not give oral medications. Dr. Tejeda said dont worry that he was planning on discontinuing. Dr. Tejeda informed this nurse, PEG tube going to placed tomorrow.
[2024-02-13 20:04] LABS: Lyme Disease AB (IGG),IBL NO BANDS DETECTED; Lyme Disease AB (IGM), IBL NO BANDS DETECTED
[2024-02-13] MEDS: enoxaparin 40 mg/0.4 mL Syringe SUBCUT (20:04)
[2024-02-13] MEDS: pantoprazole 40 mg SDV IVP (20:04)
[2024-02-13 21:06] LABS: Glucose Point of Care 119 mg/dL (70-110)
[2024-02-14] VITALS (12 sets, daily range): BP systolic 107–145; BP diastolic 49–89; PULSE 79–103; RESP 16–19; TEMP 36.4–37.8; O2SAT 92–99
[2024-02-14] MEDS: dextrose 5%-sod chloride 0.9% 1,000 ML 75 ML IV (01:45)
--- NOTE | 2024-02-14 05:13 | PC.NURSE ---
Optifoam removed from sacrum due to patient being incontinent of bowel and stool.
[2024-02-14 05:59] LABS: Basophils % 0.4 %; Eosinophils # 0.5 10^3/uL (0.0-0.8); Eosinophils % 6.5 %; Hematocrit 34.7 % (36-47); Lymphocytes # 1.9 10^3/uL (0.8-4.8); Lymphocytes % 24.8 %; Mean Corpuscular HGB Conc 31.4 g/dL (30-55); Mean Corpuscular Hemoglobin 30.3 pg (27-33); Mean Corpuscular Volume 96.4 fl (85-98); Mean Platelet Volume 10.4 fL (7.4-10.4); Monocytes # 1.2 10^3/uL (0.2-0.9); Monocytes % 15.5 %; Neutrophils # 4.02 10^3/uL (1.8-7.7); Neutrophils % 52.4 %; Nucleated Red Blood Cells % 0 %; Platelet Count 178 10^3/cmm (157-399); White Blood Count 7.67 10^3/uL (3.29-11.43)
[2024-02-14 06:21] LABS: Alanine Aminotransferase 8 U/L (0-33); Albumin Level 2.2 g/dL (3.5-5.2); Alkaline Phosphatase 86 U/L (35-105); Aspartate Amino Transferase 22 U/L (0-32); Blood Urea Nitrogen 26 mg/dL (8-23); Carbon Dioxide 20 mmol/L (22-29); Chloride 111 mmol/L (98-107); Creatinine Clr Calc Pharmacy 39.6497; Globulin 2.8 g/dL (1.3-4.6); Glucose 127 mg/dL (65-115); Magnesium 1.5 mg/dL (1.7-2.3); Osmolality Calculated 302 mOsm/kg (285-295); Phosphorus 2.2 mg/dL (2.5-4.5); Sodium 143 mmol/L (136-145)
[2024-02-14 06:24] LABS: Glucose Point of Care 132 mg/dL (70-110)
[2024-02-14 06:26] LABS: Anion Gap 16.2 (5-19); Potassium 4.2 mmol/L (3.5-5.1)
[2024-02-14] MEDS: magnesium sulfate premix 1 GM/100 ML PIGGYBACK IV (08:32)
[2024-02-14] MEDS: cyanocobalamin 1,000 mcg/mL SDV 1000 MCG IM (08:34)
[2024-02-14] MEDS: potassium phosphate (mEq K) 40 MEQ in sodium chloride 0.9% (100 ml) 100 ML 27.25 MEQ IV (09:18)
--- NOTE | 2024-02-14 10:04 | PC.SOCIAL ---
IMM Update pg 2 of IMM updated and reviewed w/ patient and Lion. Copy provided and copy dated, initialed and placed in chart.
[2024-02-14 10:44] LABS: Glucose Point of Care 170 mg/dL (70-110)
[2024-02-14 12:10] LABS: Vitamin B1 (Thiamine),Blood >1200 nmol/L (78-185)
--- NOTE | 2024-02-14 13:00 | P.PN_ITS ---
Subjective 2 Subjective: Patient was seen this morning, she is alert to person, to place, to time she follows commands but continues to have episodes of encephalopathy, at bedside tells me that they had conversations throughout the night, she has been hungry throughout the morning, plan on PEG tube placement today, ex- tells me that Analilia was joking with him this morning, and she was able to talk to her son over the phone, able to recognize her son Mickey Vitals/I&O/Wt Last Vital Signs Temp 99.5 F 02/14/24 11:12 Pulse 86 02/14/24 11:12 Resp 16 02/14/24 11:12 BP 125/85 02/14/24 11:12 Pulse Ox 92 02/14/24 11:12 O2 Del Method Room Air 02/14/24 11:12 02/13/24 02/14/24 02/14/24 22:59 06:59 14:59 Intake Total 0 / 0 836.25 / 836.25 100 / 100 Balance 0 / 0 836.25 / 836.25 100 / 100 Weight last 48 hrs Weight 84.822 kg Weight 85.684 kg Physical Exam 2 Const: COMMON NORMALS: no acute distress ORIENTATION/CONSCIOUSNESS: Yes awake, Yes oriented to person and Yes oriented to place; not oriented to time Resp: COMMON NORMALS: normal respiratory effort, No retractions, No use of accessory muscles and clear to auscultation bilaterally AUSCULTATION: clear to auscultation bilaterally Cardio: COMMON NORMALS: regular rate, regular rhythm, S1 normal heart sound present and S2 normal heart sound present RATE: regular rate RHYTHM: r egular rhythm HEART SOUNDS: S1 normal heart sound present and S2 normal heart sound present GI: COMMON NORMALS: Normal to inspection, nondistended, normoactive bowel sounds present and non-tender Extremity: COMMON NORMALS: no pedal edema Neuro: SENSORIUM/ORIENTATION: Yes oriented to person, Yes oriented to place and No oriented to time Data 02/14/24 05:37 02/14/24 05:37 A&P Assessment and plan (1) AMS (altered mental status): (2) Volume depletion: (3) Urinary tract infection: Qualifiers: Urinary tract infection type: site unspecified (4) Lymphadenopathy, abdominal: (5) Lymphadenopathy: (6) Pneumonia: (7) KLAUS (acute kidney injury): (8) Toxic encephalopathy: (9) Protein calorie malnutrition: (10) Multi-infarct dementia: (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: (12) Dysphagia: (13) Goals of care, counseling/discussion: Plan Altered mental status, acute encephalopathy, toxic encephalopathy -Etiology concerning for brainstem stroke, and/or progression of multi-infarct dementia -with dysphagia -UA with evidence of UTI, urine culture no growth, stopped zosyn -neurocheck, nih stroke scale, aspiration precuations -She has CT does show bibasilar atelectasis, pleural effusion, there is hyperdense material within the left lower lobe with either calcification or aspirated hyperdense material exhusband denies any aspiration event, findings are concerning for aspiration pneumonia, she is on room air, no evidence of respiratory stress, deescalate to augmentin -But given concerns for brainstem stroke, this certainly fits her clinical condition -Due to persistent encephalopathy, vancomycin discontinued due to no improvement of mentation on vancomycin -Follow urine cultures no growth -Follow blood cultures no growth -csf culture no growth -KLAUS, getting up to 1.9, now 1.1, -Patient CT of the head does show old bilateral cerebellar hemispheric infarcts age-indeterminate, diffuse cerebral atrophy, MRI brain MR/MR head wo con* [id number] IMPRESSION: Images significantly degraded by motion artifact despite medication. 1. No evidence of restricted diffusion to suggest acute ischemia. 2. No hydrocephalus. 3. Moderate to advanced small vessel changes with moderate parenchymal volume loss. 4. 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 5. No hemosiderin on the susceptibility weighted images. 6. 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 -Chest CT shows 1. Bulky adenopathy involving both axilla, mediastinum and upper abdomen consistent with hematologic malignancy CT/CT chest wo con [id number] IMPRESSION: 1. Bulky adenopathy involving both axilla, mediastinum and upper abdomen consistent with hematologic malignancy 2. Bibasilar atelectasis and pleural effusions -Order LDH 276, haptoglobin 201 -Due to persistent encephalopathy, lumbar puncture ordered, CSF studies so far lackluster, cultures so far no growth, 2 wbc -Leukemia, lymphoma panel, CSF cytology pending, but very unlikely that it would be leptomeningeal lymphoma [id number] mg twice daily, EEG ordered, have not noticed any significant improvement of her mentation, decrease dose to 250 twice daily ? She does take gabapentin 300 mg 3 times daily possible withdrawal? Presumed through PEG tube # B12, folate, thiamine levels ordered, started on thiamine supplementation, folic acid supplementation, B12 supplementation -Try dysphagia level 4 diet, aspiration precautions, patient does not initiate swallowing, continue speech therapy eval daily, proceeding with PEG tube placement ? NG tube placement, trickle tube feeds, patient removed NG tube, will keep out -Replacing electrolytes potassium, mAgnesian, phosphorus -Continue Plavix, statin -Therapy eval - -Full code -Lovenox for DVT prophylaxis n.p.o. general surgery consulted for PEG tube placement IV fluids Attestations 2 Medical Necessity Statement*: patient requires hospitalization for acute encephaloapthy, poor nutrition Diagnoses AMS (altered mental status) R41.82 Volume depletion E86.9 Urinary tract infection N39.0 Urinary tract infection type: site unspecified Lymphadenopathy, abdominal R59.0 Lymphadenopathy R59.1 Pneumonia J18.9 KLAUS (acute kidney injury) N17.9 Toxic encephalopathy G92.9 Protein calorie malnutrition E46 Multi-infarct dementia F01.50 Brainstem stroke I63.9 Dysphagia R13.10 Goals of care, counseling/discussion Z71.89
--- NOTE | 2024-02-14 13:11 | P.ANESASSM_ITS ---
Pre-Anesthetic Assessment Height/Weight: Height 1.52 m Weight 84.822 kg Temp Pulse Resp BP Pulse Ox O2 Del Method 99.5 F 86 16 125/85 92 Room Air 02/14/24 11:12 02/14/24 11:12 02/14/24 11:12 02/14/24 11:12 02/14/24 11:12 02/14/24 11:12 Preop Diagnosis: need for nutrition Operation Date: 02/14/24 12:45 Proposed Procedures p PEG Tube Insertion(Not Applicable) - Randal Mcpherson DO Familial anesthetic complications: none Was Beta Dacia taken within 24 hours: N/A Was Clonidine taken within 24 hours: N/A Last intake: nothing today Social No alcohol and No tobacco Exam clear to auscultation bilaterally and regular rate & rhythm Airway Submandibular: within normal limits Cervical ROM: within normal limits Mallampati: Class II Dentition: false History/ROS No significant history except as noted and No significant complaints Pulmonary None reported CV/HEM Coronary Artery Disease and Hypertension stents Kidney Stones Hepatic None reported GI None reported rist for aspiration Metabolic Diabetes Mellitus [facility] [place] None reported Neuropsych Cerebrovascular Accident and Deficit Anesthetic Plan ASA status: 4 Anesthesia: MAC Risk of > 500 ml blood loss (7ml/kg in children): No Other Pertinent Information Recent CVA Medications/Allergies Home Medications Medication Instructions Recorded Confirmed Last Taken Type carvedilol 12.5 mg tablet 12.5 mg PO BID 12/30/22 02/05/24 Unknown History clopidogrel 75 mg tablet (Plavix) 75 mg PO DAILY 12/30/22 02/05/24 Unknown History gabapentin 300 mg capsule 300 mg PO TID 12/30/22 02/05/24 Unknown History pravastatin 40 mg tablet 40 mg PO DAILY 12/30/22 02/05/24 Unknown History famotidine 40 mg tablet 40 mg PO DAILY 02/05/24 02/05/24 Unknown History Allergies Allergy/AdvReac Type Severity Reaction Status Date / Time ibuprofen [From Motrin] Allergy Unknown Verified 02/14/24 06:59 Current Medications Generic Name Dose Route Start Last Admin Trade Name Freq PRN Reason Stop Dose Admin Acetaminophen 650 mg 02/05/24 21:26 02/12/24 02:48 Acetaminophen 325 Mg Tablet PO 650 mg Q6H PRN Administration Mild/Mod Pain Or Temp >/= 101 Acetaminophen 650 mg 02/06/24 23:02 02/07/24 01:08 Acetaminophen 650 Mg Supp RI 650 mg Q6H PRN Administration PAIN Amoxicillin/Clavulanate Potassium 1 tab 02/10/24 09:00 02/13/24 16:48 Amoxicillin-Clav 875-125 Mg Tablet PO Not Given BID REPLACED BY [facility] Protocol Artificial Tears 1 drop 02/12/24 00:18 02/12/24 23:01 Artificial Tears Op Soln 15 Ml Btl EYE-BOTH 1 drop Q4H PRN Administration DRY EYE(S) Atorvastatin Calcium 40 mg 02/09/24 21:00 02/13/24 19:28 Atorvastatin 40 Mg Tablet PO Not Given BEDTIME REPLACED BY [facility] Clopidogrel Bisulfate 75 mg 02/10/24 09:00 02/13/24 14:16 Clopidogrel 75 Mg Tablet PO Not Given DAILY DAREN Cyanocobalamin 1,000 mcg 02/09/24 09:00 02/14/24 08:34 Cyanocobalamin 1,000 Mcg/Ml Sdv IM 1,000 mcg DAILY REPLACED BY [facility] Administration Docusate Sodium 100 mg 02/11/24 15:45 02/13/24 16:49 Docusate Sodium 100 Mg/10 Ml Udc PEG-TUBE Not Given BID REPLACED BY [facility] Enoxaparin Sodium 40 mg 02/09/24 22:00 02/13/24 20:04 Enoxaparin 40 Mg/0.4 Ml Syringe SUBCUT 40 mg Q24H DAREN Administration Folic Acid 1 mg 02/08/24 18:00 02/13/24 16:49 Folic Acid 1 Mg Tablet PO Not Given BID DAREN Gabapentin 300 mg 02/07/24 10:30 02/13/24 20:17 Gabapentin 300 Mg Capsule PO Not Given Q8H REPLACED BY [facility] Dextrose/Sodium Chloride 1,000 mls @ 75 mls/hr 02/13/24 14:15 02/14/24 01:45 Dextrose 5%-Sod Chloride 0.9% IV 75 mls/hr .[id number] REPLACED BY [facility] Administration Insulin Human Lispro 0 unit 02/06/24 08:00 02/14/24 08:34 Insulin Lispro 100 Unit/1 Ml SUBCUT Not Given TIDWM REPLACED BY [facility] Protocol Lanolin 1 applic 02/08/24 08:34 02/12/24 23:01 Lanolin Oint 7 Gm TOPICAL 1 applic PRN PRN Administration DRYNESS Levetiracetam 250 mg 02/11/24 14:15 02/13/24 20:17 Levetiracetam 500 Mg Tablet PEG-TUBE Not Given Q12H DAREN Morphine Sulfate 2 mg 02/05/24 21:26 02/09/24 03:45 Morphine 4 Mg/Ml Sdv 1 Ml IVP 2 mg Q4H PRN Administration SEVERE PAIN Pantoprazole Sodium 40 mg 02/05/24 21:45 02/13/24 20:04 Pantoprazole 40 Mg Sdv IVP 40 mg Q24H DAREN Administration Polyethylene Glycol 17 gm 02/11/24 14:05 02/13/24 10:56 Polyethylene Glycol 3350 Pkt 17 Gm PEG-TUBE Not Given DAILY DAREN Saliva Substitute 1 spray 02/11/24 17:53 02/12/24 23:02 Saliva Stimulant [place] 30 Ml Btl MUCOUS MEM 1 spray Q2H PRN Administration DRYNESS Thiamine HCl 100 mg 02/08/24 13:45 02/14/24 08:35 Thiamine 100 Mg/Ml Sdv IVP 100 mg DAILY DAREN Administration PFSH Anesthesia Medical History HTN (hypertension) with goal to be determined CAD (coronary artery disease) Surgical History History of hysterectomy History of appendectomy History of cholecystectomy Family History Mother Cancer Social History Smoking and tobacco/nicotine status: never used tobacco/nicotine Data Anesthesia 02/14/24 05:37 02/14/24 05:37 Short CBC 02/12/24 02/12/24 02/13/24 Range/Units 14:33 16:16 06:07 WBC Cancelled 9.91 Cancelled Hgb Cancelled 12.00 Cancelled Hct Cancelled 36.5 Cancelled MCV Cancelled 92.9 Cancelled Plt Count Cancelled 166 Cancelled Neut % (Auto) Cancelled 54.5 Cancelled Neut # (Auto) Cancelled 5.41 Cancelled 02/13/24 02/14/24 Range/Units 07:47 05:37 WBC 8.42 7.67 Hgb 11.00 L 10.90 L Hct 37.1 34.7 L MCV 97.6 D 96.4 Plt Count 169 178 Neut % (Auto) 54.1 52.4 Neut # (Auto) 4.56 4.02 BMP 02/12/24 02/13/24 02/13/24 14:33 06:07 07:47 Sodium 142 Cancelled 141 Potassium 4.2 Cancelled 4.2 Chloride 110 H Cancelled 108 H Carbon Dioxide 20 L Cancelled 23 BUN 29 H Cancelled 27 H Creatinine 1.0 H Cancelled 1.0 H Glucose 256 H Cancelled 155 H Calcium 9.7 Cancelled 9.3 02/14/24 05:37 Sodium 143 Potassium 4.2 Chloride 111 H Carbon Dioxide 20 L BUN 26 H Creatinine 1.1 H Glucose 127 H Calcium 9.0 Liver Function 02/12/24 02/13/24 02/13/24 Range/Units 14:33 06:07 07:47 Total Bilirubin 1.0 Cancelled 1.1 (0.15-1.2) mg/dL AST 22 Cancelled 19 (0-32) U/L ALT 10 Cancelled 9 (0-33) U/L Alkaline Phosphatase 107 H Cancelled 94 (35-105) U/L Albumin 2.6 L Cancelled 2.3 L (3.5-5.2) g/dL 02/14/24 Range/Units 05:37 Total Bilirubin 1.0 (0.15-1.2) mg/dL AST 22 (0-32) U/L ALT 8 (0-33) U/L Alkaline Phosphatase 86 (35-105) U/L Albumin 2.2 L (3.5-5.2) g/dL Coags 02/12/24 14:33 C-Reactive Protein 36.7 H Cardiac Studies: 2 No Data to Display
--- NOTE | 2024-02-14 13:34 | PM.CONSULT ---
Providers/Reason For Consult Consulting Physician/Specialty*: Dr. Randal Mcpherson DO/General Surgery Reason for Consult*: Dysphagia and malnutrition Attending Physician: John Paul Tejeda MD Primary Care Provider: Maryann Webb NP History of Present Illness History of Present Illness Analilia Arvizu is a 78 year old female who has a remote history of brainstem stroke. She has been having difficulty swallowing and getting proper nutrition. Her and her have requested PEG tube placement for feeding access. Denies any abdominal pain, nausea, diarrhea, constipation, hematochezia and/or melena. is present and answering questions. Patient has aphasia. HPI and review of systems are limited secondary to this Review of Systems General: Reports: 10 or more systems reviewed and unremarkable except in HPI and below Medications/Allergies Home Medications Medication Instructions Recorded Confirmed Last Taken Type carvedilol 12.5 mg tablet 12.5 mg PO BID 12/30/22 02/05/24 Unknown History clopidogrel 75 mg tablet (Plavix) 75 mg PO DAILY 12/30/22 02/05/24 Unknown History gabapentin 300 mg capsule 300 mg PO TID 12/30/22 02/05/24 Unknown History pravastatin 40 mg tablet 40 mg PO DAILY 12/30/22 02/05/24 Unknown History famotidine 40 mg tablet 40 mg PO DAILY 02/05/24 02/05/24 Unknown History Allergies Allergy/AdvReac Type Severity Reaction Status Date / Time ibuprofen [From Motrin] Allergy Unknown Verified 02/14/24 06:59 Current Medications Generic Name Dose Route Start Last Admin Trade Name Freq PRN Reason Stop Dose Admin Acetaminophen 650 mg 02/05/24 21:26 02/12/24 02:48 Acetaminophen 325 Mg Tablet PO 650 mg Q6H PRN Administration Mild/Mod Pain Or Temp >/= 101 Acetaminophen 650 mg 02/06/24 23:02 02/07/24 01:08 Acetaminophen 650 Mg Supp AR 650 mg Q6H PRN Administration PAIN Amoxicillin/Clavulanate Potassium 1 tab 02/10/24 09:00 02/13/24 16:48 Amoxicillin-Clav 875-125 Mg Tablet PO Not Given BID DAREN Protocol Artificial Tears 1 drop 02/12/24 00:18 02/12/24 23:01 Artificial Tears Op Soln 15 Ml Btl EYE-BOTH 1 drop Q4H PRN Administration DRY EYE(S) Atorvastatin Calcium 40 mg 02/09/24 21:00 02/13/24 19:28 Atorvastatin 40 Mg Tablet PO Not Given BEDTIME DAREN Clopidogrel Bisulfate 75 mg 02/10/24 09:00 02/13/24 14:16 Clopidogrel 75 Mg Tablet PO Not Given DAILY DAREN Cyanocobalamin 1,000 mcg 02/09/24 09:00 02/14/24 08:34 Cyanocobalamin 1,000 Mcg/Ml Sdv IM 1,000 mcg DAILY DAREN Administration Docusate Sodium 100 mg 02/11/24 15:45 02/13/24 16:49 Docusate Sodium 100 Mg/10 Ml Udc PEG-TUBE Not Given BID DAREN Enoxaparin Sodium 40 mg 02/09/24 22:00 02/13/24 20:04 Enoxaparin 40 Mg/0.4 Ml Syringe SUBCUT 40 mg Q24H DAREN Administration Folic Acid 1 mg 02/08/24 18:00 02/13/24 16:49 Folic Acid 1 Mg Tablet PO Not Given BID [facility] Gabapentin 300 mg 02/07/24 10:30 02/13/24 20:17 Gabapentin 300 Mg Capsule PO Not Given Q8H [facility] Dextrose/Sodium Chloride 1,000 mls @ 75 mls/hr 02/13/24 14:15 02/14/24 01:45 Dextrose 5%-Sod Chloride 0.9% IV 75 mls/hr .[id number] DAREN Administration Insulin Human Lispro 0 unit 02/06/24 08:00 02/14/24 08:34 Insulin Lispro 100 Unit/1 Ml SUBCUT Not Given TIDWM [facility] Protocol Lanolin 1 applic 02/08/24 08:34 02/12/24 23:01 Lanolin Oint 7 Gm TOPICAL 1 applic PRN PRN Administration DRYNESS Levetiracetam 250 mg 02/11/24 14:15 02/13/24 20:17 Levetiracetam 500 Mg Tablet PEG-TUBE Not Given Q12H DAREN Morphine Sulfate 2 mg 02/05/24 21:26 02/09/24 03:45 Morphine 4 Mg/Ml Sdv 1 Ml IVP 2 mg Q4H PRN Administration SEVERE PAIN Pantoprazole Sodium 40 mg 02/05/24 21:45 02/13/24 20:04 Pantoprazole 40 Mg Sdv IVP 40 mg Q24H DAREN Administration Polyethylene Glycol 17 gm 02/11/24 14:05 02/13/24 10:56 Polyethylene Glycol 3350 Pkt 17 Gm PEG-TUBE Not Given DAILY DAREN Saliva Substitute 1 spray 02/11/24 17:53 02/12/24 23:02 Saliva Stimulant [place] 30 Ml Btl MUCOUS MEM 1 spray Q2H PRN Administration DRYNESS Thiamine HCl 100 mg 02/08/24 13:45 02/14/24 08:35 Thiamine 100 Mg/Ml Sdv IVP 100 mg DAILY DAREN Administration PFSH Acute PFSH: Medical History HTN (hypertension) with goal to be determined CAD (coronary artery disease) Surgical History History of hysterectomy History of appendectomy History of cholecystectomy Family History Mother Cancer Social History Smoking and tobacco/nicotine status: never used tobacco/nicotine Vitals/I&O/Wt Last Vital Signs Temp 99.5 F 02/14/24 11:12 Pulse 86 02/14/24 11:12 Resp 16 02/14/24 11:12 BP 125/85 02/14/24 11:12 Pulse Ox 92 02/14/24 11:12 O2 Del Method Room Air 02/14/24 11:12 02/13/24 02/14/24 02/14/24 22:59 06:59 14:59 Intake Total 0 / 0 836.25 / 836.25 100 / 100 Balance 0 / 0 836.25 / 836.25 100 / 100 Weight last 48 hrs Weight 187 lb Weight 188 lb 14.4 oz Physical Exam Narrative: General : Patient is well developed , no acute distress, orie aphasic Head : Normal cephalic, a-traumatic. Ears : Pinnae and external canal are normal. Hearing is normal. Eyes : PERRLA, Sclera and injection are normal. No conjunctival discharge. Nose : Mucous membranes are without erythema. Throat : buccal mucosa is normal, gums are without significant recession or hypertrophy. Lungs : Equal chest rise bilaterally, no use of accessory muscles, trachea is midline. Cor : Rate and rhythm are normal. Abdomen : Soft, ND, NT, no g/r/m Extremities : No edema, no cyanosis or clubbing, dorsalis pedis pulses are present bilaterally, non-tender to palpation of calves. Upper extremities are normal bilaterally. Back : non-tender to palpation, no CVA tenderness. Data 02/14/24 05:37 02/14/24 05:37 A&P Assessment and plan (1) Dysphagia: (2) Protein calorie malnutrition: (3) Brainstem stroke: Plan Percutaneous endoscopic gastrostomy tube placement The risks and benefits of the procedure, including bleeding, infection, intestinal perforation requiring surgery, missed lesion were explained to the patient. The patient's is understanding of the risks and wishes to proceed. Coding Level of Care Code 64450 Diagnoses Dysphagia R13.10 Protein calorie malnutrition E46 Brainstem stroke I63.9
--- NOTE | 2024-02-14 14:16 | ANE.PACU2 ---
Inpatient post-anesthesia follow up: Airway intact: Yes Vital signs: Temperature 98.4 F Pulse Rate 88 Respiratory Rate 17 Blood Pressure 129/59 Pulse Oximetry 95 Oxygen Delivery Me thod Room Air Oxygen Flow Rate 10 Fraction of Inspir ed Oxygen Hydration adequate: Yes Nausea and vomiting: No Pain level: 1 Mental status: Baseline
[2024-02-14] MEDS: folic acid 1 mg Tablet PO (18:40)
[2024-02-14] MEDS: DOCUSATE SODIUM 100 MG/10 ML UDC PEG-TUBE (18:40)
[2024-02-14] MEDS: gabapentin 300 mg Capsule PO (18:40)
[2024-02-14] MEDS: amoxicillin-clav 875-125 mg Tablet 1 TAB PO (18:40)
[2024-02-14] MEDS: polyethylene glycol 3350 Pkt 17 gm PEG-TUBE (18:41)
[2024-02-14 20:31] LABS: Glucose Point of Care 170 mg/dL (70-110)
[2024-02-14] MEDS: pantoprazole 40 mg SDV IVP (22:11)
[2024-02-14] MEDS: insulin lispro 100 unit/1 mL SUBCUT (22:11)
[2024-02-14] MEDS: enoxaparin 40 mg/0.4 mL Syringe SUBCUT (22:12)
[2024-02-14] MEDS: atorvastatin 40 mg Tablet PO (22:12)
[2024-02-14 22:15] LABS: St. Louis Enceph.Virus IGG CSF <1:1; St. Louis Enceph.Virus IGM CSF <1:1
[2024-02-14] MEDS: cyclobenzaprine 10 mg Tablet PO (23:36)
[2024-02-15] VITALS (7 sets, daily range): BP systolic 97–121; BP diastolic 61–74; PULSE 81–103; RESP 17–20; TEMP 37.3–38.4; O2SAT 90–94
[2024-02-15] MEDS: acetaminophen 325 mg Tablet 650 MG PO (00:37)
[2024-02-15] MEDS: levETIRAcetam 500 mg Tablet 250 MG PEG-TUBE ×2 (03:39→15:49)
[2024-02-15] MEDS: gabapentin 300 mg Capsule PO ×3 (03:39→18:12)
[2024-02-15 05:09] LABS: Basophils % 0.3 %; Eosinophils # 0.2 10^3/uL (0.0-0.8); Eosinophils % 2.1 %; Hematocrit 32.1 % (36-47); Lymphocytes # 1.7 10^3/uL (0.8-4.8); Lymphocytes % 22.9 %; Mean Corpuscular HGB Conc 31.2 g/dL (30-55); Mean Corpuscular Hemoglobin 29.3 pg (27-33); Mean Corpuscular Volume 94.1 fl (85-98); Mean Platelet Volume 10.1 fL (7.4-10.4); Monocytes # 1.1 10^3/uL (0.2-0.9); Neutrophils # 4.51 10^3/uL (1.8-7.7); Nucleated Red Blood Cells % 0 %; Platelet Count 189 10^3/cmm (157-399); Red Blood Count 3.41 10^6/uL (3.85-5.65); White Blood Count 7.51 10^3/uL (3.29-11.43)
[2024-02-15 05:28] LABS: Alanine Aminotransferase 8 U/L (0-33); Albumin Level 2.2 g/dL (3.5-5.2); Alkaline Phosphatase 83 U/L (35-105); Anion Gap 12.9 (5-19); Aspartate Amino Transferase 23 U/L (0-32); Blood Urea Nitrogen 22 mg/dL (8-23); Calcium 8.4 mg/dL (8.5-10.5); Carbon Dioxide 23 mmol/L (22-29); Chloride 115 mmol/L (98-107); Creatinine Clr Calc Pharmacy 44.7069; Globulin 2.7 g/dL (1.3-4.6); Glucose 305 mg/dL (65-115); Magnesium 1.4 mg/dL (1.7-2.3); Osmolality Calculated 319 mOsm/kg (285-295); Phosphorus 2.7 mg/dL (2.5-4.5); Potassium 3.9 mmol/L (3.5-5.1); Sodium 147 mmol/L (136-145); Total Protein 4.9 g/dL (6.6-8.7)
[2024-02-15 06:24] LABS: Glucose Point of Care 222 mg/dL (70-110)
[2024-02-15] MEDS: insulin lispro 100 unit/1 mL SUBCUT ×3 (08:11→18:13)
[2024-02-15] MEDS: DOCUSATE SODIUM 100 MG/10 ML UDC PEG-TUBE ×2 (09:40→18:12)
[2024-02-15] MEDS: clopidogrel 75 mg Tablet PO (09:40)
[2024-02-15] MEDS: amoxicillin-clav 875-125 mg Tablet 1 TAB PO (09:40)
[2024-02-15] MEDS: folic acid 1 mg Tablet PO ×2 (09:40→18:12)
[2024-02-15] MEDS: cyanocobalamin 1,000 mcg/mL SDV 1000 MCG IM (09:41)
[2024-02-15] MEDS: polyethylene glycol 3350 Pkt 17 gm PEG-TUBE (09:41)
--- NOTE | 2024-02-15 09:53 | PC.NUTR ---
Recommendations for continuous tube feeds. Consider Glucerna 1.5 to begin @10mls/hr and increase 10mls Q8H as tolerated til goal rate of 30mls/hr w/ FWF of 80mls Q4H or per MD discretion.
[2024-02-15 11:47] LABS: Glucose Point of Care 171 mg/dL (70-110)
--- NOTE | 2024-02-15 11:52 | PC.NUTR ---
Consult for PEG tube feeding recommendations for continuous and bolus. For continuous feeding, recommend Glucerna 1.5 to begin @10mls/hr and increase 10mls Q8H as tolerated til goal rate of 35mls/hr w/ FWF of 80mls Q4H or per MD discretion. For bolus feeding, recommend Glucerna 1.5 with FWF of 60mls before and after using following regimen: 8am 240mls/ 1pm 240mls/ 6pm 360mls, or the equivalent of 3.5 cartons/day.
--- NOTE | 2024-02-15 12:19 | XRR_ITS ---
PROCEDURE INFORMATION: Exam: XR Chest Exam date and time: 02/15/2024 1:51 PM Age: 78 years old Clinical indication: Fever TECHNIQUE: Imaging protocol: Radiologic exam of the chest. Views: 1 view. COMPARISON: CR XR chest 1V portable [id number] 02/09/2024 7:00 AM FINDINGS: Lungs: Increasing size of right pulmonary hilum is likely lymphadenopathy. Slightly improved atelectasis and/or pneumonitis in the left lung base. Unchanged low lung volumes. No other significant pulmonary abnormalities. Pleural spaces: Unremarkable. No pleural effusion. No pneumothorax. Heart/Mediastinum: Normal heart size. No mediastinal widening. Bones/joints: Nothing acute. No change. XR/XR chest 1V portable [id number] IMPRESSION: 1. Increasing size of right pulmonary hilum is likely lymphadenopathy. 2. Slightly improved atelectasis and/or pneumonitis in the left lung base. 3. Unchanged low lung volumes.
[2024-02-15] MEDS: magnesium lactate 84 mg Tablet PO ×2 (12:38→18:13)
[2024-02-15] MEDS: piperacillin-tazobactam 3.375 GM in sodium chloride 0.9% (plus) 50 ML IV ×2 (12:39→20:34)
[2024-02-15] MEDS: artificial tears Op Soln 15 mL Btl 1 DROP EYE-BOTH (12:39)
[2024-02-15 12:56] LABS: C Reactive Protein 67.6 mg/L (0.0-4.9)
[2024-02-15 13:03] LABS: Procalcitonin 0.81 ng/mL (0-0.5)
--- NOTE | 2024-02-15 13:15 | P.PN_ITS ---
Subjective 2 Subjective: Patient was seen this morning, overnight Tmax 101.2, she does have crackles on lung zamora, she is alert to person, to place, not to time she does follow some commands, she is status post PEG tube placement today discussed with and nursing staff will start her on trickle tube feeds if she tolerates it by this evening time will advance as tolerated and plans on bolus tube feeding tomorrow, she did have a fever last night and there was concerns for aspiration overnight, we will keep her n.p.o. have speech therapy work with her we will do a chest x- ray repeat her blood work I will expand her antibiotic coverage for at least 24 hours Vitals/I&O/Wt Last Vital Signs Temp 99.4 F 02/15/24 07:51 Pulse 81 02/15/24 07:51 Resp 17 02/15/24 07:51 BP 121/65 02/15/24 07:51 Pulse Ox 90 02/15/24 07:51 O2 Del Method Room Air 02/15/24 07:51 O2 Flow Rate 10 02/14/24 13:55 02/14/24 02/15/24 02/15/24 22:59 06:59 14:59 Intake Total 1109.0909 / 1209.0909 0 / 1209.0909 Balance 1109.0909 / 1209.0909 0 / 1209.0909 Weight last 48 hrs Weight 89.539 kg Weight 84.822 kg Physical Exam 2 Const: COMMON NORMALS: no acute distress ORIENTATION/CONSCIOUSNESS: Yes awake, Yes oriented to person, Yes oriented to place and Yes confused; not oriented to time Resp: COMMON NORMALS: normal respiratory effort, No retractions and No use of accessory muscles AUSCULTATION: crackles and wheezes Cardio: COMMON NORMALS: regular rate, regular rhythm, S1 normal heart sound present and S2 normal heart sound present RATE: regular rate RHYTHM: r egular rhythm HEART SOUNDS: S1 normal heart sound present and S2 normal heart sound present GI: COMMON NORMALS: Normal to inspection, nondistended, normoactive bowel sounds present and non-tender Extremity: COMMON NORMALS: no clubbing, cyanosis or edema and no pedal edema Neuro: SENSORIUM/ORIENTATION: Yes oriented to person, Yes oriented to place and No oriented to time Psych: COMMON NORMALS: mental status grossly normal Data 02/15/24 05:00 02/15/24 05:00 A&P Assessment and plan (1) AMS (altered mental status): (2) Volume depletion: (3) Urinary tract infection: Qualifiers: Urinary tract infection type: site unspecified (4) Lymphadenopathy, abdominal: (5) Lymphadenopathy: (6) Pneumonia: (7) KLAUS (acute kidney injury): (8) Toxic encephalopathy: (9) Protein calorie malnutrition: (10) Multi-infarct dementia: (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: (12) Dysphagia: (13) Goals of care, counseling/discussion: Plan Altered mental status, acute encephalopathy, toxic encephalopathy -Etiology concerning for brainstem stroke, and/or progression of multi-infarct dementia -with dysphagia -UA with evidence of UTI, urine culture no growth, stopped zosyn -neurocheck, nih stroke scale, aspiration precuations -She has CT does show bibasilar atelectasis, pleural effusion, there is hyperdense material within the left lower lobe with either calcification or aspirated hyperdense material exhusband denies any aspiration event, findings are concerning for aspiration pneumonia, she is on room air, no evidence of respiratory stress, deescalate to augmentin -But given concerns for brainstem stroke, this certainly fits her clinical condition -Due to persistent encephalopathy, vancomycin discontinued due to no improvement of mentation on vancomycin -Follow urine cultures no growth -Follow blood cultures no growth -csf culture no growth -KLAUS, getting up to 1.9, now 1.1, -Patient CT of the head does show old bilateral cerebellar hemispheric infarcts age-indeterminate, diffuse cerebral atrophy, MRI brain MR/MR head wo con* [id number] IMPRESSION: Images significantly degraded by motion artifact despite medication. 1. No evidence of restricted diffusion to suggest acute ischemia. 2. No hydrocephalus. 3. Moderate to advanced small vessel changes with moderate parenchymal volume loss. 4. 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 5. No hemosiderin on the susceptibility weighted images. 6. 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 -Chest CT shows 1. Bulky adenopathy involving both axilla, mediastinum and upper abdomen consistent with hematologic malignancy CT/CT chest wo con [id number] IMPRESSION: 1. Bulky adenopathy involving both axilla, mediastinum and upper abdomen consistent with hematologic malignancy 2. Bibasilar atelectasis and pleural effusions -Order LDH 276, haptoglobin 201 -Due to persistent encephalopathy, lumbar puncture ordered, CSF studies so far lackluster, cultures so far no growth, 2 wbc -Leukemia, lymphoma panel, CSF cytology pending, but very unlikely that it would be leptomeningeal lymphoma [id number] mg twice daily, EEG ordered, have not noticed any significant improvement of her mentation, decrease dose to 250 twice daily ? She does take gabapentin 300 mg 3 times daily possible withdrawal? Presumed through PEG tube # B12, folate, thiamine levels ordered, started on thiamine supplementation, folic acid supplementation, B12 supplementation -Try dysphagia level 4 diet, aspiration precautions, patient does not initiate swallowing, continue speech therapy eval daily, proceeding with PEG tube placement ? NG tube placement, trickle tube feeds, patient removed NG tube, will keep out -Replacing electrolytes potassium, mAgnesian, phosphorus -Continue Plavix, statin -Therapy eval -Febrile episodes overnight, workup as below -Full code -Lovenox for DVT prophylaxis Plan for today, monitor for fevers chest x-ray, urinalysis, COVID panel, CRP, Pro-Chris, broaden antibiotic coverage to Zosyn, chest x-ray, continue aspiration precautions n.p.o., PEG tube trickle tube feeds, monitor blood sugars monitor mentation Attestations 2 Medical Necessity Statement*: Patient requires hospitalization for altered mental status likely secondary to brainstem stroke, with progression of multi-infarct dementia, status post PEG tube feedings, PEG tube placement, now with febrile episode Diagnoses AMS (altered mental status) R41.82 Volume depletion E86.9 Urinary tract infection N39.0 Urinary tract infection type: site unspecified Lymphadenopathy, abdominal R59.0 Lymphadenopathy R59.1 Pneumonia J18.9 KLAUS (acute kidney injury) N17.9 Toxic encephalopathy G92.9 Protein calorie malnutrition E46 Multi-infarct dementia F01.50 Brainstem stroke I63.9 Dysphagia R13.10 Goals of care, counseling/discussion Z71.38
--- NOTE | 2024-02-15 14:46 | PC.SLP ---
TECHNICAL INSTRUCTOR COURSE DEVELOPER stop by the patient's room toward the patient, however, the patient is not aware enough to participate at this time.
[2024-02-15] MEDS: vancomycin 2,000 MG/400 ML PIGGYBACK 200 MG IV (15:49)
[2024-02-15 16:10] LABS: Bacteria Urine None Seen /hpf; Hyaline Casts Urine 0.81 /lpf; RBC Urine 21-50 /hpf (0-2)
[2024-02-15 16:14] LABS: Add Urine Microscopic? YES; Bilirubin Urine Negative (Negative); Blood Urine 3+ (Negative); Glucose Urine UA 1+ (Normal); Ketones Urine Negative (Negative); Leukocyte Esterase Urine 1+ (Negative); Nitrate Urine Negative (Negative); Protein Urine Trace (Negative); Urine Appearance Error (CLEAR); Urine Color Yellow (Yellow); Urobilinogen Urine 0.2 mg/dL (Negative)
[2024-02-15 16:21] LABS: UA Slide Review UA Slide Review Perf
[2024-02-15 16:22] LABS: Add Urine Culture? Yes; Uric Acid Crystals Urine 0-4 /hpf
[2024-02-15 16:41] LABS: Glucose Point of Care 188 mg/dL (70-110)
[2024-02-15 16:48] LABS: Covid PCR NEGATIVE (Negative); Influenza A NEGATIVE (Negative); Influenza B NEGATIVE (Negative); Respiratory Syncytial Virus Ce NEGATIVE (Negative)
--- NOTE | 2024-02-15 18:44 | PHA.VACGOAL ---
Vancomycin Goal - Goal Vancomycin Goal:: 15-20 mg/L Vancomycin Indication:: Pneumonia (UTI) - Therapy Current therapy:: Pip/Tazo Day of therpy:: Day [1]of [] . Actual body weight (kg): 89.539 kg - Data Labs: WBC 7.51 10^3/uL (3.29-11.43) 02/15/24 05:00 Corrected WBC Cancelled 02/13/24 06:07 RBC 3.41 10^6/uL (3.85-5.65) L 02/15/24 05:00 Hgb 10.00 g/dL (11.27-16.99) L 02/15/24 05:00 Hct 32.1 % (36-47) L 02/15/24 05:00 MCV 94.1 fl (85-98) 02/15/24 05:00 MCH 29.3 pg (27-33) 02/15/24 05:00 MCHC 31.2 g/dL (30-55) 02/15/24 05:00 RDW 17.0 % (12.1-15.1) H 02/15/24 05:00 Sodium 147 mmol/L (136-145) H 02/15/24 05:00 Potassium 3.9 mmol/L (3.5-5.1) 02/15/24 05:00 Chloride 115 mmol/L (98-107) H 02/15/24 05:00 Carbon Dioxide 23 mmol/L (22-29) 02/15/24 05:00 Anion Gap 12.9 (5-19) 02/15/24 05:00 BUN 22 mg/dL (8-23) 02/15/24 05:00 Creatinine 1.0 mg/dL (0.5-0.9) H 02/15/24 05:00 GFR Calculation Not Reportable 02/15/24 05:00 Treatment plan:: new consult Regimen:: Patient restarted on vancomycin for Pneumonia/UTI. Patient's renal function has improved from Scr of 1.9 mg/dL when on vancomycin earlier in admission to 1.0 mg/dL. Will start patient on maintenance dose of 1250 mg q24h.
[2024-02-15] MEDS: pantoprazole 40 mg SDV IVP (20:40)
[2024-02-15] MEDS: atorvastatin 40 mg Tablet PO (20:50)
[2024-02-15 21:47] LABS: Glucose Point of Care 132 mg/dL (70-110)
[2024-02-15] MEDS: enoxaparin 40 mg/0.4 mL Syringe SUBCUT (22:03)
[2024-02-16] VITALS (8 sets, daily range): BP systolic 103–193; BP diastolic 64–76; PULSE 56–93; RESP 14–89; TEMP 36.4–38.3; O2SAT 92–97
[2024-02-16] MEDS: levETIRAcetam 500 mg Tablet 250 MG PEG-TUBE ×2 (02:19→14:36)
[2024-02-16] MEDS: gabapentin 300 mg Capsule PO ×3 (02:19→17:33)
[2024-02-16] MEDS: piperacillin-tazobactam 3.375 GM in sodium chloride 0.9% (plus) 50 ML IV ×3 (05:03→21:00)
[2024-02-16 06:40] LABS: Basophils % 0.1 %; Eosinophils # 0.6 10^3/uL (0.0-0.8); Hematocrit 33.7 % (36-47); Lymphocytes # 1.1 10^3/uL (0.8-4.8); Lymphocytes % 12.4 %; Mean Corpuscular HGB Conc 30.9 g/dL (30-55); Mean Corpuscular Hemoglobin 29.5 pg (27-33); Mean Corpuscular Volume 95.5 fl (85-98); Mean Platelet Volume 10.4 fL (7.4-10.4); Monocytes # 1.3 10^3/uL (0.2-0.9); Monocytes % 14.4 %; Neutrophils # 5.73 10^3/uL (1.8-7.7); Neutrophils % 65.5 %; Nucleated Red Blood Cells % 0 %; Platelet Count 179 10^3/cmm (157-399); Red Blood Count 3.53 10^6/uL (3.85-5.65); Red Cell Distribution Width 17.2 % (12.1-15.1); White Blood Count 8.74 10^3/uL (3.29-11.43)
[2024-02-16 06:46] LABS: Glucose Point of Care 272 mg/dL (70-110)
--- NOTE | 2024-02-16 06:58 | P.DS_ITS ---
Discharge Providers Date of Admission: 02/05/24 18:27 Date of Discharge: February 16, 2024 Attending Provider at Admission: John Paul Tejeda MD Attending Provider at Discharge: John Paul Tejeda MD Primary Care Provider: Maryann Webb NP Diagnoses at Discharge Discharge Diagnosis (1) AMS (altered mental status): Status: Acute (2) Volume depletion: Status: Acute (3) Urinary tract infection: Status: Acute Qualifiers: Urinary tract infection type: site unspecified (4) Lymphadenopathy, abdominal: Status: Acute (5) Lymphadenopathy: Status: Acute (6) Pneumonia: Status: Acute (7) KLAUS (acute kidney injury): Status: Acute (8) Toxic encephalopathy: Status: Acute (9) Protein calorie malnutrition: Status: Acute (10) Multi-infarct dementia: Status: Acute (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: Status: Acute (12) Dysphagia: Status: Acute (13) Goals of care, counseling/discussion: Status: Acute Reason for Visit Reason for Visit: confusion, weakness Discharge Data Studies Completed and Pending Completed Studies During Hospitalization Category Date Time Status CT abdomen pelvis wo con [id number] Stat Cat Scan 02/05/24 18:[address] chest wo con [id number] Stat Cat Scan 02/05/24 15:[address] head wo con* [id number] Routine Cat Scan 02/11/24 14:[address] head wo con* [id number] Stat Cat Scan 02/05/24 15:57 Completed FL guided lumbarpunc dx* [id number] Routine Exams 02/07/24 08:57 Completed XR chest 1V portable [id number] Routine Exams 02/08/24 18:35 Completed XR chest 1V portable [id number] Routine Exams 02/15/24 12:19 Completed XR chest 1V portable [id number] Stat Exams 02/05/24 15:21 Completed XR chest 1V portable [id number] Stat Exams 02/09/24 06:49 Completed MR head wo con* [id number] Routine MRI 02/06/24 11:00 Completed Cytology [PTH] Routine Pth 02/07/24 09:05 Completed CV carotid duplex BI* [id number] Routine Ultrasound 02/13/24 08:05 Completed Pending at discharge Category Date Time Status EEG electroencephalogram Routine Exams 02/07/24 10:29 Ordered CMP [Comprehensive Metabolic Panel] Stat Lab 02/16/24 06:26 Received CRP [C Reactive Protein] Stat Lab 02/16/24 06:26 Received Miscellaneous Test Routine Lab 02/07/24 16:35 Received Procalcitonin Stat Lab 02/16/24 06:26 Received Sputum Culture Routine Lab 02/14/24 17:52 Results Urinalysis Stat Lab 02/15/24 13:37 Uncollected Urine Culture Stat Lab 02/15/24 15:45 Received Urine Protein Electrop Random Routine Lab 02/07/24 09:02 Uncollected Radiology Impressions Chest CT 02/05/24 15:59 IMPRESSION: 1. Bulky adenopathy involving both axilla, mediastinum and upper abdomen consistent with hematologic malignancy 2. Bibasilar atelectasis and pleural effusions Abdomen/Pelvis CT 02/05/24 18:29 IMPRESSION: Extensive abdominal and pelvic adenopathy consistent with hematologic malignancy Head MRI 02/06/24 11:00 IMPRESSION: Images significantly degraded by motion artifact despite medication. 1. No evidence of restricted diffusion to suggest acute ischemia. 2. No hydrocephalus. 3. Moderate to advanced small vessel changes with moderate parenchymal volume loss. 4. 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 5. No hemosiderin on the susceptibility weighted images. 6. Moderate to advanced symmetric atrophy temporal lobes hippocampal forma tions. Lumbar Puncture Fluoroscopy 02/07/24 08:57 IMPRESSION: Fluoroscopically guided lumbar puncture. No immediate complications Head CT 02/11/24 14:05 IMPRESSION: No acute intracranial abnormality. Chest X-Ray 02/15/24 12:19 IMPRESSION: 1. Increasing size of right pulmonary hilum is likely lymphadenopathy. 2. Slightly improved atelectasis and/or pneumonitis in the left lung base. 3. Unchanged low lung volumes. Laboratory Results WBC 8.74 10^3/uL (3.29-11.43) 02/16/24 06:26 Corrected WBC Cancelled 02/13/24 06:07 RBC 3.53 10^6/uL (3.85-5.65) L 02/16/24 06:26 Hgb 10.40 g/dL (11.27-16.99) L 02/16/24 06:26 Hct 33.7 % (36-47) L 02/16/24 06:26 MCV 95.5 fl (85-98) 02/16/24 06:26 MCH 29.5 pg (27-33) 02/16/24 06:26 MCHC 30.9 g/dL (30-55) 02/16/24 06:26 RDW 17.2 % (12.1-15.1) H 02/16/24 06:26 Plt Count 179 10^3/cmm (157-399) 02/16/24 06:26 MPV 10.4 fL (7.4-10.4) 02/16/24 06:26 Gran % Cancelled 02/13/24 06:07 Neut % (Auto) 65.5 % 02/16/24 06:26 Lymph % (Auto) 12.4 % 02/16/24 06:26 [place] % (Auto) 14.4 % 02/16/24 06:26 Eos % (Auto) 7.0 % 02/16/24 06:26 Baso % (Auto) 0.1 % 02/16/24 06:26 Neut # (Auto) 5.73 10^3/uL (1.8-7.7) 02/16/24 06:26 Lymph # (Auto) 1.1 10^3/uL (0.8-4.8) 02/16/24 06:26 [place] # (Auto) 1.3 10^3/uL (0.2-0.9) H 02/16/24 06:26 Eos # (Auto) 0.6 10^3/uL (0.0-0.8) 02/16/24 06:26 Baso # (Auto) 0.0 10^3/uL (0.0-0.1) 02/16/24 06:26 Absolute Gran (auto) Cancelled 02/13/24 06:07 Nucleated RBC % (auto) 0 % 02/16/24 06:26 Nucleated RBCs # 0.0 /100WBC 02/16/24 06:26 Peripher Smr Path Cons Sent for review 02/07/24 04:48 ESR 9 mm/hr (0-15) 02/05/24 18:49 Haptoglobin 201.0 mg/L (30-200) H 02/05/24 18:49 Specimen Type Arterial 02/08/24 18:31 Sample Site Brachial, left 02/08/24 18:31 ABG pH 7.42 (7.35-7.45) 02/08/24 18:31 ABG pCO2 36.9 mmHg (35-45) 02/08/24 18:31 ABG pO2 68.4 mmHg (80.0-100.0) L 02/08/24 18:31 ABG PO2/FiO2 Ratio 325 02/08/24 18:31 ABG HCO3 23.8 mmol/L (22-26) 02/08/24 18:31 ABG O2 Saturation 94.2 02/08/24 18:31 ABG Base Excess -0.5 mmol/L (-2.0-2.0) 02/08/24 18:31 Tank Test N/a 02/08/24 18:31 A-a O2 Gradient 4.7 mmHg (5-10) L 02/08/24 18:31 Hematocrit 38.1 % (37-47) 02/08/24 18:31 Hgb O2 Saturation 91.9 % (95-100) L 02/08/24 18:31 Carboxyhemoglobin 1.5 %THgb (0.4-20.1) 02/08/24 18:31 Methemoglobin 0.9 % (0.4-1.5) 02/08/24 18:31 Total Hemoglobin 12.4 g/dL (12-16) 02/08/24 18:31 Sodium 147.0 mmol/L (131-143) H 02/08/24 18:31 Potassium 5.7 mmol/L (3.5-5.0) H 02/08/24 18:31 Glucose 171.0 mg/dL (70-115) H 02/08/24 18:31 Ionized Calcium 1.3 mmol/L (1.1-1.4) 02/08/24 18:31 O2 Delivery Device Room air 02/08/24 18:31 FiO2 21.0 % 02/08/24 18:31 Junior Systems Administrator ID [facility] 02/08/24 18:31 Sodium 147 mmol/L (136-145) H 02/15/24 05:00 Potassium 3.9 mmol/L (3.5-5.1) 02/15/24 05:00 Chloride 115 mmol/L (98-107) H 02/15/24 05:00 Carbon Dioxide 23 mmol/L (22-29) 02/15/24 05:00 Anion Gap 12.9 (5-19) 02/15/24 05:00 BUN 22 mg/dL (8-23) 02/15/24 05:00 Creatinine 1.0 mg/dL (0.5-0.9) H 02/15/24 05:00 GFR Calculation Not Reportable 02/15/24 05:00 Glucose 305 mg/dL (65-115) H 02/15/24 05:00 POC Glucose 272 mg/dL (70-110) H 02/16/24 06:38 Estimat Average Glucose 140 02/05/24 21:47 Hemoglobin A1c 6.5 % (4.0-6.0) H 02/05/24 21:47 Calculated Osmolality 319 mOsm/kg (285-295) H 02/15/24 05:00 Lactic Acid 3.6 mmol/L (0.5-2.2) H 02/05/24 18:49 Lactic Acid (Sepsis) 3.7 mmol/L (0.5-2.2) H 02/05/24 21:47 Lactate 3.4 mmol/L (0.5-2.2) H 02/10/24 04:54 Uric Acid 8.7 mg/dL (2.4-5.7) H 02/06/24 09:50 Calcium 8.4 mg/dL (8.5-10.5) L 02/15/24 05:00 Phosphorus 2.7 mg/dL (2.5-4.5) 02/15/24 05:00 Magnesium 1.4 mg/dL (1.7-2.3) L 02/15/24 05:00 Total Bilirubin 1.0 mg/dL (0.15-1.2) 02/15/24 05:00 AST 23 U/L (0-32) 02/15/24 05:00 ALT 8 U/L (0-33) 02/15/24 05:00 Alkaline Phosphatase 83 U/L (35-105) 02/15/24 05:00 Ammonia 20 umol/L (11-51) 02/05/24 18:49 Lactate Dehydrogenase 276 U/L (135-214) H 02/05/24 18:49 Creatine Kinase 22 U/L (26-192) L 02/10/24 04:54 Troponin T Baseline 19 ng/L (0-10) H 02/05/24 15:44 Troponin T 120 Minute 20.10 ng/L (0-10) H 02/05/24 21:47 Delta Troponin T 1.1 ABS# (0-10) 02/05/24 21:47 Troponin T Hi Sens 6Hr 22.09 ng/L (0-10) H 02/06/24 00:44 Troponin T Hi Sens 6Hr Delta 3.09 ng/L (0-12) 02/06/24 00:44 C-Reactive Protein 67.6 mg/L (0.0-4.9) H 02/15/24 05:00 Total Protein 4.9 g/dL (6.6-8.7) L 02/15/24 05:00 Albumin 2.2 g/dL (3.5-5.2) L 02/15/24 05:00 Globulin 2.7 g/dL (1.3-4.6) 02/15/24 05:00 Tvool-4-Kcwvwvuwz 0.3 g/dL (0.2-0.3) 02/07/24 04:48 Lzuth-9-Dpdhabxcc 0.7 g/dL (0.5-0.9) 02/07/24 04:48 Uupk-3-Cgxkbzpc 0.3 g/dL (0.4-0.6) L 02/07/24 04:48 Gwgu-9-Vzqzgugn 0.4 g/dL (0.2-0.5) 02/07/24 04:48 Gamma Globulins 1.3 g/dL (0.8-1.7) 02/07/24 04:48 Abnorm Protein Band 1 0.2 g/dL (NONE DETECTED) H 02/07/24 04:48 Thiamine >1200 nmol/L (78-185) H 02/08/24 19:49 Vitamin B12 380 pg/mL (232-1245) 02/08/24 05:21 Folate 7.9 ng/mL (4.8-37.3) 02/08/24 05:21 Procalcitonin 0.81 ng/mL (0-0.5) H 02/15/24 05:00 TSH 1.18 uIU/mL (0.27-4.20) 02/12/24 14:33 Free T4 1.21 ng/dL (0.82-1.77) 02/12/24 14:33 Urine Color Yellow (Yellow) 02/15/24 15:45 Urine Appearance Error (CLEAR) A 02/15/24 15:45 Urine pH 5.0 (5-7) 02/15/24 15:45 Ur Specific [place] 1.020 (1.005-1.030) 02/15/24 15:45 Urine Protein Trace (Negative) A 02/15/24 15:45 Urine Glucose (UA) 1+ (Normal) H 02/15/24 15:45 Urine Ketones Negative (Negative) 02/15/24 15:45 Urine Blood 3+ (Negative) A 02/15/24 15:45 Urine Nitrate Negative (Negative) 02/15/24 15:45 Urine Bilirubin Negative (Negative) 02/15/24 15:45 Urine Urobilinogen 0.2 mg/dL (Negative) 02/15/24 15:45 Ur Leukocyte Esterase 1+ (Negative) A 02/15/24 15:45 Urine RBC 21-50 /hpf (0-2) H 02/15/24 15:45 Urine WBC 11-20 /hpf (0-5) H 02/15/24 15:45 Ur Squamous Epith Cells 6-10 /hpf (0-5) 02/15/24 15:45 Uric Acid Crystals 0-4 /hpf 02/15/24 15:45 Amorphous Sediment Not Reportable 02/15/24 15:45 Urine Bacteria None seen /hpf (NONE) 02/15/24 15:45 Hyaline Casts 0.81 /lpf 02/15/24 15:45 Urine Yeast 1+ /hpf H 02/15/24 15:45 U Abnormal Prot Band 2 Not Reportable 02/07/24 04:48 U Abnormal Prot Band 3 Not Reportable 02/07/24 04:48 CSF Appearance Clear (CLEAR) 02/07/24 16:35 CSF Color Colorless (COLORLESS) 02/07/24 16:35 CSF Specific [place] 1.006 02/07/24 16:35 CSF WBC 2 /uL (0-5) 02/07/24 16:35 CSF RBC 0 10^3/uL (0-0) 02/07/24 16:35 CSF Mononuclear # Auto 0.002 10^3/uL (50-90) L 02/07/24 16:35 CSF Mononuclear WBCs % 100 % (50-90) H 02/07/24 16:35 CSF Polynuclear WBCs # 0.000 10^3/uL (0-10) 02/07/24 16:35 CSF Polynuclear WBCs % 0 % (0-10) 02/07/24 16:35 CSF Diff Comment Yes 02/07/24 16:35 CSF Glucose 92 mg/dL (40-70) H 02/07/24 16:35 CSF Adenosine Deaminase 0.5 U/L (<7.0) 02/07/24 16:35 CSF Total Protein 24 mg/dL (15-45) 02/07/24 16:35 CSF Lyme IgG (Immblot) No bands detected 02/07/24 16:35 CSF Lyme IgM (Immblot) No bands detected 02/07/24 16:35 CSF Jess Enceph IgG <1:1 02/07/24 16:[address] [facility] Enc IgM IFA <1:1 02/07/24 16:35 CSF Jess Enceph Intrp See note 02/07/24 16:35 Vancomycin Trough 18.5 ug/mL (10-15) H 02/08/24 09:19 Pro Electrophoresis Int See note 02/07/24 04:48 Lymphoma Panel See report 02/07/24 09:05 Immunophenotype Interp See report 02/06/24 09:50 Lyme IgG Bands Present Not Reportable 02/07/24 16:35 Lyme IgM Bands Present Not Reportable 02/07/24 16:35 Coronavirus (PCR) Negative (Negative) 02/15/24 15:45 Hepatitis A IgM Ab Non-reactive (Nonreactive) 02/06/24 15:43 Hep Bs Antigen Non-reactive (Nonreactive) 02/06/24 15:43 Hep B Core IgM Ab Non-reactive (Nonreactive) 02/06/24 15:43 Hepatitis C Antibody Non-reactive (Nonreactive) 02/06/24 15:43 HIV 1&2 Ab & HIV 1 Ag Non-reactive (Non-Reactiv) 02/06/24 15:43 HIV 1&2 Antibody Non-reactive (Non-Reactiv) 02/06/24 15:43 Influenza A (PCR) Negative (Negative) 02/15/24 15:45 Influenza Type B (PCR) Negative (Negative) 02/15/24 15:45 RSV (PCR) Negative (Negative) 02/15/24 15:45 Vitals Last Vital Signs Temp 98.9 F 02/16/24 00:00 Pulse 91 02/16/24 06:00 Resp 89 H 02/16/24 00:00 BP 124/76 02/16/24 00:00 Pulse Ox 92 02/16/24 00:00 O2 Del Method Room Air 02/16/24 00:00 O2 Flow Rate 10 02/14/24 13:55 Discharge Plan Discharge Patient Disposition: Home Health Service Condition: Stable Prescriptions: New levetiracetam 500 mg Tablet 250 mg peg-tube Q12H 30 Days Qty: 30 0RF levofloxacin 750 mg tablet 750 mg PO DAILY 5 Days Qty: 5 0RF insulin lispro [Humalog U-100 Insulin] 100 unit/mL Solution See Rx Instructions .ROUTE .COMPLEX MDD 20 Qty: 10 0RF Rx Instructions: Inject, subcut, 3 times daily, after meals, based on sliding scale provided folic acid 1 mg Tablet 1 mg PO BID 30 Days Qty: 60 0RF polyethylene glycol 3350 17 gram Powder In Packet 17 g peg-tube DAILY PRN (Reason: constipation) 30 Days Qty: 30 0RF magnesium L-lactate [Magtab] 84 mg Tablet Extended Release 84 mg PO BID 30 Days Qty: 60 0RF cyanocobalamin (vitamin B-12) [Vitamin B-12] 1,000 mcg Tablet 1,000 mcg PO DAILY 30 Days Qty: 30 0RF thiamine HCl (vitamin B1) 100 mg tablet 100 mg PO DAILY 30 Days Qty: 30 0RF Continued pravastatin 40 mg tablet 40 mg PO DAILY gabapentin 300 mg capsule 300 mg PO TID clopidogrel [Plavix] 75 mg tablet 75 mg PO DAILY famotidine 40 mg tablet 40 mg PO DAILY Discontinued carvedilol 12.5 mg tablet 12.5 mg PO BID Rx Instructions: must administer with a meal/food Referrals: [facility] [Outside] Mohinder Ray MD [Physician] - 1 week (cva) Maryann Webb NP [Primary Care Provider] - Jose Alberto Al MD [Family Provider] - Xiang Muñoz MD [Hospitalist] - 2 weeks (diffuse lymphadenopathy) Discharge Diet: As Directed Discharge Activity: Resume usual activity Patient Instructions: Acute Wound Care (DC), Altered Mental Status (ED), GI Post Discharge Instructions w/ Anesthesia, Opioid Safety Activity Restrictions/Additional Instructions: -PEG tube bolus feeding, -Glucerna 1.5 with free water flush of 60 mL before and after using following regimen; -8aM 240 mL -1 PM 240 mL -6 PM 360 mL -Speech therapy daily, high aspiration risk, keep n.p.o. -Physical therapy Daily -Equivalent of 3.5 cartons a day -Please monitor your blood sugars closely -Monitor your blood sugars 3 times daily as after meals -Please record your blood sugars, and a blood sugar log -For your NovoLog -Please inject blood sugar after meals based on sliding scale provided -Do not inject insulin if you do not eat as hypoglycemia kills -This is a NovoLog sliding scale -Insulin sliding ?fingerstick? Insulin ?141-180?0 units/sq 181-220?2 units/sq ?221-260?4 units/sq ?261-300 6 units/sq ?301-350?8 units/sq ?351-400 10 units/sq ?401-450?12 units/sq >450? 14units/sq -If your blood sugar is greater than 500 go to the emergency room -If your blood sugar is less than 60 or at anytime you feel lightheaded or dizzy or diaphoretic or have chest palpitations check your blood sugar, and eat a hard candy or drink orange juice and go immediately to the emergency room -Remember hypoglycemia kills, so if his blood sugar is less than 60 we have to increase it by taking in a sugary meal such as a hard candy or orange juice and go to the emergency room -If you have any questions please call us where here to help Coding Level of Care Code Acute Code for Chg Fwd Diagnoses AMS (altered mental status) R41.82 Volume depletion E86.9 Urinary tract infection N39.0 Urinary tract infection type: site unspecified Lymphadenopathy, abdominal R59.0 Lymphadenopathy R59.1 Pneumonia J18.9 KLAUS (acute kidney injury) N17.9 Toxic encephalopathy G92.9 Protein calorie malnutrition E46 Multi-infarct dementia F01.50 Brainstem stroke I63.9 Dysphagia R13.10 Goals of care, counseling/discussion Z71.89
[2024-02-16 07:00] LABS: Alanine Aminotransferase 7 U/L (0-33); Albumin Level 2.2 g/dL (3.5-5.2); Alkaline Phosphatase 100 U/L (35-105); Aspartate Amino Transferase 19 U/L (0-32); Blood Urea Nitrogen 24 mg/dL (8-23); C Reactive Protein 92.6 mg/L (0.0-4.9); Carbon Dioxide 20 mmol/L (22-29); Chloride 111 mmol/L (98-107); Creatinine Clr Calc Pharmacy 31.9978; Globulin 2.8 g/dL (1.3-4.6); Glucose 243 mg/dL (65-115); Osmolality Calculated 306 mOsm/kg (285-295); Sodium 142 mmol/L (136-145)
[2024-02-16 07:05] LABS: Procalcitonin 1.02 ng/mL (0-0.5)
--- NOTE | 2024-02-16 07:18 | P.PN_ITS ---
Subjective 2 Subjective: Patient was seen this morning, is at bedside, she has been afebrile for the last 12 hours, no nausea, no vomiting, is on continuous tube feeds, she is alert to person, not to place, to time, she does follow some commands, Vitals/I&O/Wt Last Vital Signs Temp 98.9 F 02/16/24 00:00 Pulse 91 02/16/24 06:00 Resp 89 H 02/16/24 00:00 BP 124/76 02/16/24 00:00 Pulse Ox 92 02/16/24 00:00 O2 Del Method Room Air 02/16/24 00:00 O2 Flow Rate 10 02/14/24 13:55 02/15/24 02/16/24 02/16/24 22:59 06:59 14:59 Intake Total 450 / 450 50 / 500 Balance 450 / 450 50 / 500 Weight last 48 hrs Weight 89.857 kg Weight 89.539 kg Physical Exam 2 Const: COMMON NORMALS: no acute distress ORIENTATION/CONSCIOUSNESS: Yes awake and Yes oriented to person; not oriented to place and not oriented to time Resp: COMMON NORMALS: normal respiratory effort, No retractions, No use of accessory muscles and clear to auscultation bilaterally AUSCULTATION: clear to auscultation bilaterally Cardio: COMMON NORMALS: regular rate, regular rhythm, S1 normal heart sound present and S2 normal heart sound present RATE: regular rate RHYTHM: r egular rhythm HEART SOUNDS: S1 normal heart sound present and S2 normal heart sound present GI: COMMON NORMALS: Normal to inspection, nondistended, normoactive bowel sounds present and non-tender Extremity: COMMON NORMALS: no pedal edema Neuro: SENSORIUM/ORIENTATION: Yes oriented to person, No oriented to place and No oriented to time Psych: COMMON NORMALS: mental status grossly normal Skin: NARRATIVE SKIN EXAM: Stage II sacral decubitus ulcer Data 02/16/24 06:26 02/16/24 06:26 Micro: Microbiology 02/14/24 17:52 Sputum Culture - Preliminary Sputum - Expectorated Sputum A&P Assessment and plan (1) AMS (altered mental status): (2) Volume depletion: (3) Urinary tract infection: Qualifiers: Urinary tract infection type: site unspecified (4) Lymphadenopathy, abdominal: (5) Lymphadenopathy: (6) Pneumonia: (7) KLAUS (acute kidney injury): (8) Toxic encephalopathy: (9) Protein calorie malnutrition: (10) Multi-infarct dementia: (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: (12) Dysphagia: (13) Goals of care, counseling/discussion: Plan Altered mental status, acute encephalopathy, toxic encephalopathy -Etiology concerning for brainstem stroke, and/or progression of multi-infarct dementia -with dysphagia -UA with evidence of UTI, urine culture no growth, -neurocheck, nih stroke scale, aspiration precuations -She has CT does show bibasilar atelectasis, pleural effusion, there is hyperdense material within the left lower lobe with either calcification or aspirated hyperdense material exhusband denies any aspiration event, findings are concerning for aspiration pneumonia, she is on room air, no evidence of respiratory stress -But given concerns for brainstem stroke, this certainly fits her clinical conditio -Follow urine cultures no growth -Follow blood cultures no growth -csf culture no growth -KLAUS, getting up to 1.9, now 1.4, -Patient CT of the head does show old bilateral cerebellar hemispheric infarcts age-indeterminate, diffuse cerebral atrophy, MRI brain MR/MR head wo con* [id number] IMPRESSION: Images significantly degraded by motion artifact despite medication. 1. No evidence of restricted diffusion to suggest acute ischemia. 2. No hydrocephalus. 3. Moderate to advanced small vessel changes with moderate parenchymal volume loss. 4. 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 5. No hemosiderin on the susceptibility weighted images. 6. 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 -Chest CT shows 1. Bulky adenopathy involving both axilla, mediastinum and upper abdomen consistent with hematologic malignancy CT/CT chest wo con [id number] IMPRESSION: 1. Bulky adenopathy involving both axilla, mediastinum and upper abdomen consistent with hematologic malignancy 2. Bibasilar atelectasis and pleural effusions -For her lymphadenopathy she will have to follow-up with hematology oncology as outpatient for consideration of biopsy -Order LDH 276, haptoglobin 201 -Due to persistent encephalopathy, lumbar puncture ordered, CSF studies so far lackluster, cultures so far no growth, 2 wbc -Leukemia, lymphoma panel, CSF cytology pending, but very unlikely that it would be leptomeningeal lymphoma [id number] mg twice daily, for possible seizure ? She does take gabapentin 300 mg 3 times daily # B12, folate, thiamine levels ordered, started on thiamine supplementation, folic acid supplementation, B12 supplementation -High aspiration risk, keep n.p.o. ?PEG tube in place, currently on continuous tube feeds altered to bolus tube feeds -Replacing electrolytes potassium, mAgnesian, phosphorus -Continue Plavix, statin -Therapy eval -Febrile episodes overnight, workup as below She does have a sacral decubitus ulcer stage II, continue to monitor, reposition, wound care -Full code -Lovenox for DVT prophylaxis NOW: Febrile episodes, UA with evidence of UTI, checks x-ray shows possible evidence of aspiration, respiratory viral panel negative, likely aspiration pneumonia, with a UTI as a source -For now continue vancomycin, Zosyn -Follow repeat blood cultures -Follow urine cultures Attestations 2 Medical Necessity Statement*: Patient requires hospitalization for febrile episodes UA with evidence of UTI, chest x-ray with evidence of pneumonia, requiring IV antibiotics, brainstem stroke Diagnoses AMS (altered mental status) R41.82 Volume depletion E86.9 Urinary tract infection N39.0 Urinary tract infection type: site unspecified Lymphadenopathy, abdominal R59.0 Lymphadenopathy R59.1 Pneumonia J18.9 KLAUS (acute kidney injury) N17.9 Toxic encephalopathy G92.9 Protein calorie malnutrition E46 Multi-infarct dementia F01.50 Brainstem stroke I63.9 Dysphagia R13.10 Goals of care, counseling/discussion Z71.89
[2024-02-16] MEDS: sodium chloride 0.9% 1,000 ML 50 ML IV (09:17)
[2024-02-16] MEDS: insulin lispro 100 unit/1 mL SUBCUT ×2 (09:18→12:27)
[2024-02-16] MEDS: folic acid 1 mg Tablet PO ×2 (09:18→17:33)
[2024-02-16] MEDS: cyanocobalamin 1,000 mcg Tablet 1000 MCG PO (09:18)
[2024-02-16] MEDS: DOCUSATE SODIUM 100 MG/10 ML UDC PEG-TUBE ×2 (09:19→17:33)
[2024-02-16] MEDS: polyethylene glycol 3350 Pkt 17 gm PEG-TUBE (09:19)
[2024-02-16] MEDS: clopidogrel 75 mg Tablet PO (09:19)
[2024-02-16] MEDS: magnesium lactate 84 mg Tablet PO ×2 (09:19→17:33)
--- NOTE | 2024-02-16 10:03 | PC.SOCIAL ---
IMM Update pg 2 of IMM Updated and reviewed w/ patient. Copy provided and copy dated, initialed and placed in chart.
[2024-02-16 10:41] LABS: Glucose Point of Care 251 mg/dL (70-110)
--- NOTE | 2024-02-16 11:41 | PC.SLP ---
Nursing stated that patient received a PEG yesterday and no oral feedings were being completed. No CALENDER WORKER HELPER follow up for swallowing were needed per nursing
--- NOTE | 2024-02-16 14:41 | P.PN_ITS ---
Subjective 2 Subjective: Pain controlled. Resting comfortably in bed Vitals/I&O/Wt Last Vital Signs Temp 97.6 F 02/16/24 11:25 Pulse 56 L 02/16/24 11:25 Resp 14 02/16/24 11:25 BP 193/72 02/16/24 11:25 Pulse Ox 97 02/16/24 11:25 O2 Del Method Room Air 02/16/24 11:25 O2 Flow Rate 10 02/14/24 13:55 02/15/24 02/16/24 02/16/24 22:59 06:59 14:59 Intake Total 450 / 450 50 / 500 50 / 50 Balance 450 / 450 50 / 500 50 / 50 Weight last 48 hrs Weight 198 lb 1.6 oz Weight 197 lb 6.4 oz Physical Exam 2 Narrative: General: No acute distress, patient is nonverbal after a stroke Abdomen: Soft, nontender, nondistended, no erythema or exudate around PEG Data 02/16/24 06:26 02/16/24 06:26 Micro: Microbiology 02/14/24 17:52 Sputum Culture - Final Sputum - Expectorated Sputum 02/16/24 09:03 Blood Culture - Preliminary Blood SPECIMEN COLLECTED 02/16/24 08:58 Blood Culture - Preliminary Blood SPECIMEN COLLECTED A&P Assessment and plan (1) Dysphagia: (2) Protein calorie malnutrition: (3) Brainstem stroke: (4) PEG (percutaneous endoscopic gastrostomy) status: Plan Status post percutaneous endoscopic gastrostomy tube placement Begin trickle tube feeds Dietary consult Medical management per hospitalist Attestations 2 Medical Necessity Statement*: Per primary Coding Level of Care Code 46577 Diagnoses Dysphagia R13.10 Protein calorie malnutrition E46 Brainstem stroke I63.9 PEG (percutaneous endoscopic gastrostomy) status Z93.1
[2024-02-16 17:32] LABS: Glucose Point of Care 148 mg/dL (70-110)
[2024-02-16] MEDS: vancomycin 1,250 MG/250 ML PIGGYBACK 166.67 MG IV (17:34)
--- NOTE | 2024-02-16 19:16 | PC.NURSE ---
pts bolus feed at 1800 360ml with 60ml flush before and after
[2024-02-16 20:46] LABS: Glucose Point of Care 174 mg/dL (70-110)
[2024-02-16] MEDS: atorvastatin 40 mg Tablet PO (20:59)
[2024-02-16] MEDS: pantoprazole 40 mg SDV IVP (20:59)
[2024-02-16] MEDS: enoxaparin 40 mg/0.4 mL Syringe SUBCUT (21:36)
[2024-02-17] VITALS (7 sets, daily range): BP systolic 88–111; BP diastolic 40–67; PULSE 84–95; RESP 21–26; TEMP 36.4–37.1; O2SAT 94–97
[2024-02-17 00:50] LABS: SARS Covid-2 Antigen Negative (Negative)
[2024-02-17] MEDS: levETIRAcetam 500 mg Tablet 250 MG PEG-TUBE (02:00)
[2024-02-17] MEDS: gabapentin 300 mg Capsule PO (02:00)
[2024-02-17] MEDS: acetaminophen 325 mg Tablet 650 MG PO (02:21)
[2024-02-17] MEDS: cyclobenzaprine 10 mg Tablet PO (02:21)
[2024-02-17] MEDS: sodium chloride 0.9% 1,000 ML 999 ML IV (04:13)
--- NOTE | 2024-02-17 05:38 | PC.NURSE ---
At 0400 patients blood pressure was 88/40. Dr. Rosenberg was called and notified and gave order to do 1L of NS IV bolus. The patients head of the bed was lowered all the way down and legs was elevated. The bolus was given and a new manual blood pressure was taken and it was 86/36. No response to sternal rubs and calling the patients name. Dr. Rosenberg was called and notified and came up to see the patient. The patient will be going down to ICU per Dr. Rosenberg orders. The patients husbands has spoken with Dr. Rosenberg and nurse called patients son at [id number] and will be coming in.
[2024-02-17 05:48] LABS: ABG PCO2 37.3 mmHg (35-45); ABG PH Result 7.39 (7.35-7.45); Alveolar-Arterial Oxygen Gradi 6.4 mmHg (5-10); Arterial Blood Gas Hematocrit 29.3 % (37-47); Base Excess ABG -2.4 mmol/L (-2.0-2.0); Blood Gas Sample Site Brachial, right; Blood Gas Sample Type Arterial; Carboxyhemoglobin 1.7 %THgb (0.4-20.1); HCO3 ABG 22.3 mmol/L (22-26); HGB O2 Sat 87.1 % (95-100); Ionized Calcium Level - ABG 1.3 mmol/L (1.1-1.4); Methemoglobin 0.5 % (0.4-1.5); Oxygen Device ROOM AIR; PO2 ABG 55.6 mmHg (80.0-100.0); Potassium Level - ABG 3.7 mmol/L (3.5-5.0); Total Hemoglobin 9.6 g/dL (12-16)
--- NOTE | 2024-02-17 05:54 | P.EN_ITS ---
Event Note Event Note: Patient was evaluated for being unresponsive When I entered the room patient was supine, she is not pulseless, she is tachypneic, blood sugar was normal, she is not responding to painful stimuli, pupils are pinpoint, Nurses tried to get a peripheral IV She recently got a PEG tube placed by the surgeon GCS is 3 at the bedside For airway protection we will transfer to ICU for intubation, chart reviewed, she has been declining for quite some time, family wants to keep her full code, son is medical DPOA who has been notified he is coming from [place] Patient was hypoxic desaturating 86% on room air, she was put on oxy mask blood gas requested We do not have any ICU beds, hospitalist was notified to make arrangements to swab patient beds to range transferred to the ICU for Ms. Arvizu As per the night nurse she started getting worse after 2 AM , she received Tylenol and Flexeril because she was fidgety, she was put on 1 L IV fluid bolus because of low blood pressure, she is afebrile Requested an EKG, transfer to ICU, and requesting ICU nurse if we can start Levophed on the medical floor while waiting for the ICU bed
[2024-02-17 06:04] LABS: Glucose Point of Care 180 mg/dL (70-110)
--- NOTE | 2024-02-17 06:25 | PC.NURSE ---
Comfort Care This nurse spoke with Dr. Rosenberg who reported that he spoke with patient's son and RADHIKA Arevalo. Mickey conveyed to Dr. Rosenberg that he does not wish for the patient to be moved to ICU, no CPR, no intubation. Mickey also conveyed to Dr. Rosenberg that he wishes for patient to be comfortable, to be placed on comfort care with appropriate medications to keep patient comfortable. This nurse spoke with patient son Mickey and Mickey repeated the above conversation with this nurse and states that his wishes for the patient to be kept comfortable and let her go when it's her time. Mickey states that he does not wish for cpr, intubation, ICU transfer, or any life saving measures to be performed. Mickey states that he wishes for the patient to be placed on comfort care at this time. Mickey states he is on his way to see patient but it will be an amount of time due to a long drive.
[2024-02-17 06:35] LABS: Glucose Point of Care 168 mg/dL (70-110)
--- NOTE | 2024-02-17 10:41 | P.PN_ITS ---
Subjective 2 Subjective: Patient is mostly nonresponsive this morning and there is a suspected repeated stroke. Patient was made DNR/DNI Vitals/I&O/Wt Last Vital Signs Temp 97.6 F 02/17/24 08:00 Pulse 84 02/17/24 08:00 Resp 21 H 02/17/24 08:00 BP 97/53 02/17/24 08:00 Pulse Ox 97 02/17/24 08:00 O2 Del Method Aerosol Mask 02/17/24 08:00 O2 Flow Rate 10 02/14/24 13:55 02/16/24 02/17/24 02/17/24 22:59 06:59 14:59 Intake Total 300 / 350 1995.667 / 2346.667 Balance 300 / 350 6.7 Weight last 48 hrs Weight 201 lb 1.6 oz Weight 198 lb 1.6 oz Physical Exam 2 Narrative: General: No acute distress, patient is nonverbal after a stroke Abdomen: Soft, nontender, nondistended, no erythema or exudate around PEG Data 02/16/24 06:26 02/16/24 06:26 Micro: Microbiology 02/15/24 15:45 Urine Culture - Final Urine,Clean Catch 02/16/24 09:03 Blood Culture - Preliminary Blood NEGATIVE TO DATE 02/16/24 08:58 Blood Culture - Preliminary Blood NEGATIVE TO DATE 02/14/24 17:52 Sputum Culture - Final Sputum - Expectorated Sputum A&P Assessment and plan (1) Dysphagia: (2) Protein calorie malnutrition: (3) Brainstem stroke: (4) PEG (percutaneous endoscopic gastrostomy) status: Plan Status post percutaneous endoscopic gastrostomy tube placement Okay for tube feedings at goal Since patient was made DNR/DNI and is being put in hospice, general surgery will sign off. Please reconsult if the need arises Medical management per hospitalist Attestations 2 Medical Necessity Statement*: Per primary Coding Level of Care Code 05486 Diagnoses Dysphagia R13.10 Protein calorie malnutrition E46 Brainstem stroke I63.9 PEG (percutaneous endoscopic gastrostomy) status Z93.1
[2024-02-17 10:49] LABS: Glucose Point of Care 189 mg/dL (70-110)
--- NOTE | 2024-02-17 14:12 | P.PN_ITS ---
Subjective 2 Subjective: Overnight events reviewed. Patient is now on comfort care management. Family including her Lion and son Mickey and other kids are at bedside. Medications: Reviewed: Yes Vitals/I&O/Wt Last Vital Signs Temp 97.6 F 02/17/24 08:00 Pulse 84 02/17/24 08:00 Resp 21 H 02/17/24 08:00 BP 97/53 02/17/24 08:00 Pulse Ox 97 02/17/24 08:00 O2 Del Method Aerosol Mask 02/17/24 08:00 O2 Flow Rate 10 02/14/24 13:55 02/16/24 02/17/24 02/17/24 22:59 06:59 14:59 Intake Total 300 / 350 1995.667 / 2346.667 Balance 300 / 350 1995.6. Weight last 48 hrs Weight 91.217 kg Weight 89.857 kg Physical Exam 2 Narrative: General: No acute distress, AO x1 \Detailed examination not performed to allow patient comfort Data 02/16/24 06:26 02/16/24 06:26 Micro: Microbiology 02/15/24 15:45 Urine Culture - Final Urine,Clean Catch 02/16/24 09:03 Blood Culture - Preliminary Blood NEGATIVE TO DATE 02/16/24 08:58 Blood Culture - Preliminary Blood NEGATIVE TO DATE 02/14/24 17:52 Sputum Culture - Final Sputum - Expectorated Sputum A&P Assessment and plan (1) AMS (altered mental status): (2) Volume depletion: (3) Urinary tract infection: Qualifiers: Urinary tract infection type: site unspecified (4) Lymphadenopathy, abdominal: (5) Lymphadenopathy: (6) Pneumonia: (7) KLAUS (acute kidney injury): (8) Toxic encephalopathy: (9) Protein calorie malnutrition: (10) Multi-infarct dementia: (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: (12) Dysphagia: (13) Goals of care, counseling/discussion: Plan Altered mental status, acute encephalopathy, toxic encephalopathy -Etiology concerning for brainstem stroke, and/or progression of multi-infarct dementia -with dysphagia -UA with evidence of UTI, urine culture no growth, -neurocheck, nih stroke scale, aspiration precuations -She has CT does show bibasilar atelectasis, pleural effusion, there is hyperdense material within the left lower lobe with either calcification or aspirated hyperdense material deanna denies any aspiration event, findings are concerning for aspiration pneumonia, she is on room air, no evidence of respiratory stress -But given concerns for brainstem stroke, this certainly fits her clinical conditio -Follow urine cultures no growth -Follow blood cultures no growth -csf culture no growth -KLAUS, getting up to 1.9, now 1.4, -Patient CT of the head does show old bilateral cerebellar hemispheric infarcts age-indeterminate, diffuse cerebral atrophy, MRI brain MR/MR head wo con* [id number] IMPRESSION: Images significantly degraded by motion artifact despite medication. 1. No evidence of restricted diffusion to suggest acute ischemia. 2. No hydrocephalus. 3. Moderate to advanced small vessel changes with moderate parenchymal volume loss. 4. 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 5. No hemosiderin on the susceptibility weighted images. 6. 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 -Chest CT shows 1. Bulky adenopathy involving both axilla, mediastinum and upper abdomen consistent with hematologic malignancy CT/CT chest wo con [id number] IMPRESSION: 1. Bulky adenopathy involving both axilla, mediastinum and upper abdomen consistent with hematologic malignancy 2. Bibasilar atelectasis and pleural effusions -For her lymphadenopathy she will have to follow-up with hematology oncology as outpatient for consideration of biopsy -Order LDH 276, haptoglobin 201 -Due to persistent encephalopathy, lumbar puncture ordered, CSF studies so far lackluster, cultures so far no growth, 2 wbc -Leukemia, lymphoma panel, CSF cytology pending, but very unlikely that it would be leptomeningeal lymphoma [id number] mg twice daily, for possible seizure ? She does take gabapentin 300 mg 3 times daily # B12, folate, thiamine levels ordered, started on thiamine supplementation, folic acid supplementation, B12 supplementation -High aspiration risk, keep n.p.o. ?PEG tube in place, currently on continuous tube feeds altered to bolus tube feeds -Replacing electrolytes potassium, mAgnesian, phosphorus -Continue Plavix, statin -Therapy eval -Febrile episodes overnight, workup as below She does have a sacral decubitus ulcer stage II, continue to monitor, reposition, wound care -Full code -Lovenox for DVT prophylaxis NOW: Febrile episodes, UA with evidence of UTI, checks x-ray shows possible evidence of aspiration, respiratory viral panel negative, likely aspiration pneumonia, with a UTI as a source -For now continue vancomycin, Zosyn -Follow repeat blood cultures -Follow urine cultures 02/17/2024. Overnight patient had clinical deterioration wherein she became more lethargic and unresponsive. Overnight hospitalist discussed care with patient's son who elected to transition patient to comfort care measures given her continued clinical deterioration. Her family is currently at bedside including her Lion, son Mickey who are listed on her paperwork to be the points of contact. Other children and patient's siblings are also at bedside. All family in agreement with transition to comfort care measures. Tube feeding and antibiotics discontinued. atorvastatin discontinued, Plavix discontinued supplements such as folic acid DVT prophylaxis all discontinued in keeping with comfort care measures. Attestations 2 Medical Necessity Statement*: Comfort care measures Coding Level of Care Code 25311 High Time for a total of 50 minutes, includes reviewing past or interval history, examining/interviewing patient, placing orders, counseling patient/family/other support, updating patient/family/other support, discussing plan of care with staff, communicating with other healthcare providers, documenting encounter and coordinating care Diagnoses AMS (altered mental status) R41.82 Volume depletion E86.9 Urinary tract infection N39.0 Urinary tract infection type: site unspecified Lymphadenopathy, abdominal R59.0 Lymphadenopathy R59.1 Pneumonia J18.9 KLAUS (acute kidney injury) N17.9 Toxic encephalopathy G92.9 Protein calorie malnutrition E46 Multi-infarct dementia F01.50 Brainstem stroke I63.9 Dysphagia R13.10 Goals of care, counseling/discussion Z71.89
[2024-02-17 16:22] LABS: Glucose Point of Care 140 mg/dL (70-110)
[2024-02-17 21:08] LABS: Glucose Point of Care 104 mg/dL (70-110)
[2024-02-17] MEDS: LORazepam 2 mg/mL INJ 1 mL IVP (23:30)
[2024-02-18 01:44] VITALS: RESP 15; O2SAT 95
[2024-02-18] MEDS: morphine 4 mg/mL SDV 1 mL IVP ×2 (01:44→12:14)
[2024-02-18] MEDS: gabapentin 300 mg Capsule PO (01:45)
[2024-02-18 06:39] LABS: Glucose Point of Care 87 mg/dL (70-110)
--- NOTE | 2024-02-18 14:21 | P.PN_ITS ---
Subjective 2 Subjective: No new complaints. Patient is comfortable. Medications: Reviewed: Yes Vitals/I&O/Wt Last Vital Signs Temp 97.6 F 02/17/24 18:00 Pulse 84 02/17/24 18:00 Resp 15 02/18/24 01:44 BP 97/53 02/17/24 18:00 Pulse Ox 95 02/18/24 01:44 O2 Del Method Aerosol Mask 02/17/24 08:00 O2 Flow Rate 10 02/14/24 13:55 02/17/24 02/18/24 02/18/24 22:59 06:59 14:59 Output Total 450 / 450 Balance -450 / -450 Weight last 48 hrs Weight 89.403 kg Weight 91.217 kg Physical Exam 2 Narrative: General: No acute distress, patient asleep \Detailed examination not performed to allow patient comfort Data 02/16/24 06:26 02/16/24 06:26 Micro: Microbiology 02/15/24 15:45 Urine Culture - Final Urine,Clean Catch 02/16/24 09:03 Blood Culture - Preliminary Blood NEGATIVE TO DATE 02/16/24 08:58 Blood Culture - Preliminary Blood NEGATIVE TO DATE A&P Assessment and plan (1) AMS (altered mental status): (2) Volume depletion: (3) Urinary tract infection: Qualifiers: Urinary tract infection type: site unspecified (4) Lymphadenopathy, abdominal: (5) Lymphadenopathy: (6) Pneumonia: (7) KLAUS (acute kidney injury): (8) Toxic encephalopathy: (9) Protein calorie malnutrition: (10) Multi-infarct dementia: (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: (12) Dysphagia: (13) Goals of care, counseling/discussion: Plan Altered mental status, acute encephalopathy, toxic encephalopathy -Etiology concerning for brainstem stroke, and/or progression of multi-infarct dementia -with dysphagia -UA with evidence of UTI, urine culture no growth, -neurocheck, nih stroke scale, aspiration precuations -She has CT does show bibasilar atelectasis, pleural effusion, there is hyperdense material within the left lower lobe with either calcification or aspirated hyperdense material exhusband denies any aspiration event, findings are concerning for aspiration pneumonia, she is on room air, no evidence of respiratory stress -But given concerns for brainstem stroke, this certainly fits her clinical conditio -Follow urine cultures no growth -Follow blood cultures no growth -csf culture no growth -KLAUS, getting up to 1.9, now 1.4, -Patient CT of the head does show old bilateral cerebellar hemispheric infarcts age-indeterminate, diffuse cerebral atrophy, MRI brain MR/MR head wo con* [id number] IMPRESSION: Images significantly degraded by motion artifact despite medication. 1. No evidence of restricted diffusion to suggest acute ischemia. 2. No hydrocephalus. 3. Moderate to advanced small vessel changes with moderate parenchymal volume loss. 4. 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 5. No hemosiderin on the susceptibility weighted images. 6. 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 -Chest CT shows 1. Bulky adenopathy involving both axilla, mediastinum and upper abdomen consistent with hematologic malignancy CT/CT chest wo con [id number] IMPRESSION: 1. Bulky adenopathy involving both axilla, mediastinum and upper abdomen consistent with hematologic malignancy 2. Bibasilar atelectasis and pleural effusions -For her lymphadenopathy she will have to follow-up with hematology oncology as outpatient for consideration of biopsy -Order LDH 276, haptoglobin 201 -Due to persistent encephalopathy, lumbar puncture ordered, CSF studies so far lackluster, cultures so far no growth, 2 wbc -Leukemia, lymphoma panel, CSF cytology pending, but very unlikely that it would be leptomeningeal lymphoma [id number] mg twice daily, for possible seizure ? She does take gabapentin 300 mg 3 times daily # B12, folate, thiamine levels ordered, started on thiamine supplementation, folic acid supplementation, B12 supplementation -High aspiration risk, keep n.p.o. ?PEG tube in place, currently on continuous tube feeds altered to bolus tube feeds -Replacing electrolytes potassium, mAgnesian, phosphorus -Continue Plavix, statin -Therapy eval -Febrile episodes overnight, workup as below She does have a sacral decubitus ulcer stage II, continue to monitor, reposition, wound care -Full code -Lovenox for DVT prophylaxis NOW: Febrile episodes, UA with evidence of UTI, checks x-ray shows possible evidence of aspiration, respiratory viral panel negative, likely aspiration pneumonia, with a UTI as a source -For now continue vancomycin, Zosyn -Follow repeat blood cultures -Follow urine cultures 02/17/2024. Overnight patient had clinical deterioration wherein she became more lethargic and unresponsive. Overnight hospitalist discussed care with patient's son who elected to transition patient to comfort care measures given her continued clinical deterioration. Her family is currently at bedside including her Lion, son Mickey who are listed on her paperwork to be the points of contact. Other children and patient's siblings are also at bedside. All family in agreement with transition to comfort care measures. Tube feeding and antibiotics discontinued. atorvastatin discontinued, Plavix discontinued supplements such as folic acid DVT prophylaxis all discontinued in keeping with comfort care measures. 02/18/2024 Continue comfort care management today. Likely discharge to SNF on comfort care measures tomorrow. Attestations 2 Medical Necessity Statement*: Comfort care management Coding Level of Care Code Acute Code for Chg Fwd Straight Forward/Low MDM includes number and complexity of problems actively addressed during encounter, amount and/or complexity of data reviewed/ordered and described risk of complication, morbidity or mortality of management as documented Diagnoses AMS (altered mental status) R41.82 Volume depletion E86.9 Urinary tract infection N39.0 Urinary tract infection type: site unspecified Lymphadenopathy, abdominal R59.0 Lymphadenopathy R59.1 Pneumonia J18.9 KLAUS (acute kidney injury) N17.9 Toxic encephalopathy G92.9 Protein calorie malnutrition E46 Multi-infarct dementia F01.50 Brainstem stroke I63.9 Dysphagia R13.10 Goals of care, counseling/discussion Z71.89
[2024-02-19 00:40] VITALS: RESP 18
[2024-02-19] MEDS: morphine 4 mg/mL SDV 1 mL IVP ×3 (00:40→21:24)
[2024-02-19] MEDS: LORazepam 2 mg/mL INJ 1 mL IVP (09:19)
--- NOTE | 2024-02-19 10:21 | PC.SOCIAL ---
IMM Update Pg. 2 of IMM updated. Initialed, dated, and timed. Copy provided at bedside.
--- NOTE | 2024-02-19 16:49 | P.PN_ITS ---
Subjective 2 Subjective: No acute interim events. Patient comfortable. Medications: Reviewed: Yes Vitals/I&O/Wt Last Vital Signs Temp 97.6 F 02/17/24 18:00 Pulse 84 02/17/24 18:00 Resp 18 02/19/24 00:40 BP 97/53 02/17/24 18:00 Pulse Ox 95 02/18/24 01:44 O2 Del Method Aerosol Mask 02/17/24 08:00 O2 Flow Rate 10 02/14/24 13:55 02/19/24 02/19/24 02/19/24 06:59 14:59 22:59 Output Total 850 / 850 Balance -850 / -850 Weight last 48 hrs Weight 91.711 kg Weight 89.403 kg Physical Exam 2 Narrative: General: No acute distress, patient asleep \Detailed examination not performed to allow patient comfort Data 02/16/24 06:26 02/16/24 06:26 A&P Assessment and plan (1) AMS (altered mental status): (2) Volume depletion: (3) Urinary tract infection: Qualifiers: Urinary tract infection type: site unspecified (4) Lymphadenopathy, abdominal: (5) Lymphadenopathy: (6) Pneumonia: (7) KLAUS (acute kidney injury): (8) Toxic encephalopathy: (9) Protein calorie malnutrition: (10) Multi-infarct dementia: (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: (12) Dysphagia: (13) Goals of care, counseling/discussion: Plan Altered mental status, acute encephalopathy, toxic encephalopathy -Etiology concerning for brainstem stroke, and/or progression of multi-infarct dementia -with dysphagia -UA with evidence of UTI, urine culture no growth, -neurocheck, nih stroke scale, aspiration precuations -She has CT does show bibasilar atelectasis, pleural effusion, there is hyperdense material within the left lower lobe with either calcification or aspirated hyperdense material exhusband denies any aspiration event, findings are concerning for aspiration pneumonia, she is on room air, no evidence of respiratory stress -But given concerns for brainstem stroke, this certainly fits her clinical conditio -Follow urine cultures no growth -Follow blood cultures no growth -csf culture no growth -KLAUS, getting up to 1.9, now 1.4, -Patient CT of the head does show old bilateral cerebellar hemispheric infarcts age-indeterminate, diffuse cerebral atrophy, MRI brain MR/MR head wo con* [id number] IMPRESSION: Images significantly degraded by motion artifact despite medication. 1. No evidence of restricted diffusion to suggest acute ischemia. 2. No hydrocephalus. 3. Moderate to advanced small vessel changes with moderate parenchymal volume loss. 4. 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 5. No hemosiderin on the susceptibility weighted images. 6. 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 -Chest CT shows 1. Bulky adenopathy involving both axilla, mediastinum and upper abdomen consistent with hematologic malignancy CT/CT chest wo con [id number] IMPRESSION: 1. Bulky adenopathy involving both axilla, mediastinum and upper abdomen consistent with hematologic malignancy 2. Bibasilar atelectasis and pleural effusions -For her lymphadenopathy she will have to follow-up with hematology oncology as outpatient for consideration of biopsy -Order LDH 276, haptoglobin 201 -Due to persistent encephalopathy, lumbar puncture ordered, CSF studies so far lackluster, cultures so far no growth, 2 wbc -Leukemia, lymphoma panel, CSF cytology pending, but very unlikely that it would be leptomeningeal lymphoma [id number] mg twice daily, for possible seizure ? She does take gabapentin 300 mg 3 times daily # B12, folate, thiamine levels ordered, started on thiamine supplementation, folic acid supplementation, B12 supplementation -High aspiration risk, keep n.p.o. ?PEG tube in place, currently on continuous tube feeds altered to bolus tube feeds -Replacing electrolytes potassium, mAgnesian, phosphorus -Continue Plavix, statin -Therapy eval -Febrile episodes overnight, workup as below She does have a sacral decubitus ulcer stage II, continue to monitor, reposition, wound care -Full code -Lovenox for DVT prophylaxis NOW: Febrile episodes, UA with evidence of UTI, checks x-ray shows possible evidence of aspiration, respiratory viral panel negative, likely aspiration pneumonia, with a UTI as a source -For now continue vancomycin, Zosyn -Follow repeat blood cultures -Follow urine cultures 02/17/2024. Overnight patient had clinical deterioration wherein she became more lethargic and unresponsive. Overnight hospitalist discussed care with patient's son who elected to transition patient to comfort care measures given her continued clinical deterioration. Her family is currently at bedside including her Lion, son Mickey who are listed on her paperwork to be the points of contact. Other children and patient's siblings are also at bedside. All family in agreement with transition to comfort care measures. Tube feeding and antibiotics discontinued. atorvastatin discontinued, Plavix discontinued supplements such as folic acid DVT prophylaxis all discontinued in keeping with comfort care measures. 02/18/2024 Continue comfort care management today. Likely discharge to SNF on comfort care measures tomorrow. 02/19/2024 Continue comfort care management. Appropriate disposition planning ongoing, likely discharge to SNF on comfort measures versus transition to inpatient hospice. Attestations 2 Medical Necessity Statement*: Continue comfort care management Coding Level of Care Code Acute Code for Chg Fwd Straight Forward/Low MDM includes number and complexity of problems actively addressed during encounter, amount and/or complexity of data reviewed/ordered and described risk of complication, morbidity or mortality of management as documented Diagnoses AMS (altered mental status) R41.82 Volume depletion E86.9 Urinary tract infection N39.0 Urinary tract infection type: site unspecified Lymphadenopathy, abdominal R59.0 Lymphadenopathy R59.1 Pneumonia J18.9 KLAUS (acute kidney injury) N17.9 Toxic encephalopathy G92.9 Protein calorie malnutrition E46 Multi-infarct dementia F01.50 Brainstem stroke I63.9 Dysphagia R13.10 Goals of care, counseling/discussion Z71.89
[2024-02-19 20:42] LABS: Glucose Point of Care 72 mg/dL (70-110)
[2024-02-19 21:24] VITALS: RESP 16
[2024-02-20] MEDS: LORazepam 2 mg/mL INJ 1 mL IVP (04:14)
--- NOTE | 2024-02-20 04:43 | PC.NURSE ---
doesn't want anyone waking the patient up to turn her. stated I want her to sleep and not be bother. stayed the night with patient as with three other family members in the patient room.
[2024-02-20 06:35] LABS: Glucose Point of Care 89 mg/dL (70-110)
[2024-02-20 09:07] VITALS: RESP 10
[2024-02-20] MEDS: morphine 4 mg/mL SDV 1 mL IVP (09:07)
--- NOTE | 2024-02-20 17:45 | P.DS_ITS ---
Discharge Providers Date of Admission: 02/05/24 18:27 Date of Discharge: February 20, 2024 Attending Provider at Admission: John Paul Tejeda MD Attending Provider at Discharge: Cyn Rock MD Primary Care Provider: Maryann Webb NP Diagnoses at Discharge Discharge Diagnosis (1) AMS (altered mental status): Status: Acute (2) Volume depletion: Status: Acute (3) Urinary tract infection: Status: Acute Qualifiers: Urinary tract infection type: site unspecified (4) Lymphadenopathy, abdominal: Status: Acute (5) Lymphadenopathy: Status: Acute (6) Pneumonia: Status: Acute (7) KLAUS (acute kidney injury): Status: Acute (8) Toxic encephalopathy: Status: Acute (9) Protein calorie malnutrition: Status: Acute (10) Multi-infarct dementia: Status: Acute (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: Status: Acute (12) Dysphagia: Status: Acute (13) Goals of care, counseling/discussion: Status: Acute Reason for Visit Reason for Visit: confusion, weakness Hospital Course Hospital Course Analilia Arvizu is a 78 year old female with a history of acute renal injury, protein calorie malnutrition, toxic encephalopathy, lymphadenopathy of the abdomen, type 2 diabetes mellitus, peripheral neuropathy, and urinary tract infections. The patient underwent head MRI on 02/06/2024 which revealed Moderate to advanced small vessel changes with moderate parenchymal volume loss. 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 No hemosiderin on the susceptibility weighted images. 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 And repeat noncontrast head CT 02/11/2024 which revealed no acute findings. Metabolic lab was also obtained and revealed no significant findings. patient wwas seen by neurology and noted to have nonfluent aphasia and is unable to protrude her tongue. Patient had no gag reflex. She was diagnosed with a brainstem stroke.. Other hospital events during this admission included UTI, aspiration pneumonia bulky adenopathy involving the axilla mediastinum and upper abdomen consistent with hematological malignancy but without any further diagnostics at this time. Patient had a PEG tube placed and appropriate disposition planning was ongoing. On 02/17/2024 patient had worsening of her mental status with concern for additional stroke. Patient was planned to undergo a repeat CT scan, however after an extended discussion with the family, it was decided that patient would not have wanted further imaging or other escalation in her care and after discussion with her son and it was decided to transition patient to comfort care management. Patient has remained on comfort care management since 02/17/2024. She is being transitioned to inpatient hospice today. Physical Exam Narrative: Asleep, not woken up for exam, detailed examination not performed in keeping with goals for comfort Discharge Data Studies Completed and Pending Completed Studies During Hospitalization Category Date Time Status CT abdomen pelvis wo con [id number] Stat Cat Scan 02/05/24 18:[address] chest wo con [id number] Stat Cat Scan 02/05/24 15:[address] head wo con* [id number] Routine Cat Scan 02/11/24 14:[address] head wo con* [id number] Stat Cat Scan 02/05/24 15:57 Completed FL guided lumbarpunc dx* [id number] Routine Exams 02/07/24 08:57 Completed XR chest 1V portable [id number] Routine Exams 02/08/24 18:35 Completed XR chest 1V portable [id number] Routine Exams 02/15/24 12:19 Completed XR chest 1V portable [id number] Stat Exams 02/05/24 15:21 Completed XR chest 1V portable [id number] Stat Exams 02/09/24 06:49 Completed MR head wo con* [id number] Routine MRI 02/06/24 11:00 Completed Cytology [PTH] Routine Pth 02/07/24 09:05 Completed CV carotid duplex BI* [id number] Routine Ultrasound 02/13/24 08:05 Completed Pending at discharge Category Date Time Status Blood Culture Stat Lab 02/16/24 09:03 Results Miscellaneous Test Routine Lab 02/07/24 16:35 Stop Req Radiology Impressions Chest CT 02/05/24 15:59 IMPRESSION: 1. Bulky adenopathy involving both axilla, mediastinum and upper abdomen consistent with hematologic malignancy 2. Bibasilar atelectasis and pleural effusions Abdomen/Pelvis CT 02/05/24 18:29 IMPRESSION: Extensive abdominal and pelvic adenopathy consistent with hematologic malignancy Head MRI 02/06/24 11:00 IMPRESSION: Images significantly degraded by motion artifact despite medication. 1. No evidence of restricted diffusion to suggest acute ischemia. 2. No hydrocephalus. 3. Moderate to advanced small vessel changes with moderate parenchymal volume loss. 4. 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 5. No hemosiderin on the susceptibility weighted images. 6. 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 Lumbar Puncture Fluoroscopy 02/07/24 08:57 IMPRESSION: Fluoroscopically guided lumbar puncture. No immediate complications Head CT 02/11/24 14:05 IMPRESSION: No acute intracranial abnormality. Chest X-Ray 02/15/24 12:19 IMPRESSION: 1. Increasing size of right pulmonary hilum is likely lymphadenopathy. 2. Slightly improved atelectasis and/or pneumonitis in the left lung base. 3. Unchanged low lung volumes. Laboratory Results WBC 8.74 10^3/uL (3.29-11.43) 02/16/24 06:26 Corrected WBC Cancelled 02/13/24 06:07 RBC 3.53 10^6/uL (3.85-5.65) L 02/16/24 06:26 Hgb 10.40 g/dL (11.27-16.99) L 02/16/24 06:26 Hct 33.7 % (36-47) L 02/16/24 06:26 MCV 95.5 fl (85-98) 02/16/24 06:26 MCH 29.5 pg (27-33) 02/16/24 06:26 MCHC 30.9 g/dL (30-55) 02/16/24 06:26 RDW 17.2 % (12.1-15.1) H 02/16/24 06:26 Plt Count 179 10^3/cmm (157-399) 02/16/24 06:26 MPV 10.4 fL (7.4-10.4) 02/16/24 06:26 Gran % Cancelled 02/13/24 06:07 Neut % (Auto) 65.5 % 02/16/24 06:26 Lymph % (Auto) 12.4 % 02/16/24 06:26 [place] % (Auto) 14.4 % 02/16/24 06:26 Eos % (Auto) 7.0 % 02/16/24 06:26 Baso % (Auto) 0.1 % 02/16/24 06:26 Neut # (Auto) 5.73 10^3/uL (1.8-7.7) 02/16/24 06:26 Lymph # (Auto) 1.1 10^3/uL (0.8-4.8) 02/16/24 06:26 [place] # (Auto) 1.3 10^3/uL (0.2-0.9) H 02/16/24 06:26 Eos # (Auto) 0.6 10^3/uL (0.0-0.8) 02/16/24 06:26 Baso # (Auto) 0.0 10^3/uL (0.0-0.1) 02/16/24 06:26 Absolute Gran (auto) Cancelled 02/13/24 06:07 Nucleated RBC % (auto) 0 % 02/16/24 06:26 Nucleated RBCs # 0.0 /100WBC 02/16/24 06:26 Peripher Smr Path Cons Sent for review 02/07/24 04:48 ESR 9 mm/hr (0-15) 02/05/24 18:49 Haptoglobin 201.0 mg/L (30-200) H 02/05/24 18:49 Specimen Type Arterial 02/17/24 05:39 Sample Site Brachial, right 02/17/24 05:39 ABG pH 7.39 (7.35-7.45) 02/17/24 05:39 ABG pCO2 37.3 mmHg (35-45) 02/17/24 05:39 ABG pO2 55.6 mmHg (80.0-100.0) L 02/17/24 05:39 ABG PO2/FiO2 Ratio 325 02/08/24 18:31 ABG HCO3 22.3 mmol/L (22-26) 02/17/24 05:39 ABG O2 Saturation 89.0 02/17/24 05:39 ABG Base Excess -2.4 mmol/L (-2.0-2.0) L 02/17/24 05:39 Tank Test N/a 02/17/24 05:39 A-a O2 Gradient 6.4 mmHg (5-10) 02/17/24 05:39 Hematocrit 29.3 % (37-47) L 02/17/24 05:39 Hgb O2 Saturation 87.1 % (95-100) L 02/17/24 05:39 Carboxyhemoglobin 1.7 %THgb (0.4-20.1) 02/17/24 05:39 Methemoglobin 0.5 % (0.4-1.5) 02/17/24 05:39 Total Hemoglobin 9.6 g/dL (12-16) L 02/17/24 05:39 Sodium 144.0 mmol/L (131-143) H 02/17/24 05:39 Potassium 3.7 mmol/L (3.5-5.0) 02/17/24 05:39 Glucose 189.0 mg/dL (70-115) H 02/17/24 05:39 Ionized Calcium 1.3 mmol/L (1.1-1.4) 02/17/24 05:39 O2 Delivery Device Room air 02/17/24 05:39 FiO2 21.0 % 02/08/24 18:31 Practical Nursing Instructor ID [email or web address] 02/17/24 05:39 Sodium 142 mmol/L (136-145) 02/16/24 06:26 Potassium 4.0 mmol/L (3.5-5.1) 02/16/24 06:26 Chloride 111 mmol/L (98-107) H 02/16/24 06:26 Carbon Dioxide 20 mmol/L (22-29) L 02/16/24 06:26 Anion Gap 15.0 (5-19) 02/16/24 06:26 BUN 24 mg/dL (8-23) H 02/16/24 06:26 Creatinine 1.4 mg/dL (0.5-0.9) H 02/16/24 06:26 GFR Calculation Not Reportable 02/16/24 06:26 Glucose 243 mg/dL (65-115) H 02/16/24 06:26 POC Glucose 89 mg/dL (70-110) 02/20/24 06:20 Estimat Average Glucose 140 02/05/24 21:47 Hemoglobin A1c 6.5 % (4.0-6.0) H 02/05/24 21:47 Calculated Osmolality 306 mOsm/kg (285-295) H 02/16/24 06:26 Lactic Acid 3.6 mmol/L (0.5-2.2) H 02/05/24 18:49 Lactic Acid (Sepsis) 3.7 mmol/L (0.5-2.2) H 02/05/24 21:47 Lactate 3.4 mmol/L (0.5-2.2) H 02/10/24 04:54 Uric Acid 8.7 mg/dL (2.4-5.7) H 02/06/24 09:50 Calcium 9.0 mg/dL (8.5-10.5) 02/16/24 06:26 Phosphorus 2.7 mg/dL (2.5-4.5) 02/15/24 05:00 Magnesium 1.4 mg/dL (1.7-2.3) L 02/15/24 05:00 Total Bilirubin 1.0 mg/dL (0.15-1.2) 02/16/24 06:26 AST 19 U/L (0-32) 02/16/24 06:26 ALT 7 U/L (0-33) 02/16/24 06:26 Alkaline Phosphatase 100 U/L (35-105) 02/16/24 06:26 Ammonia 20 umol/L (11-51) 02/05/24 18:49 Lactate Dehydrogenase 276 U/L (135-214) H 02/05/24 18:49 Creatine Kinase 22 U/L (26-192) L 02/10/24 04:54 Troponin T Baseline 19 ng/L (0-10) H 02/05/24 15:44 Troponin T 120 Minute 20.10 ng/L (0-10) H 02/05/24 21:47 Delta Troponin T 1.1 ABS# (0-10) 02/05/24 21:47 Troponin T Hi Sens 6Hr 22.09 ng/L (0-10) H 02/06/24 00:44 Troponin T Hi Sens 6Hr Delta 3.09 ng/L (0-12) 02/06/24 00:44 C-Reactive Protein 92.6 mg/L (0.0-4.9) H 02/16/24 06:26 Total Protein 5.0 g/dL (6.6-8.7) L 02/16/24 06:26 Albumin 2.2 g/dL (3.5-5.2) L 02/16/24 06:26 Globulin 2.8 g/dL (1.3-4.6) 02/16/24 06:26 Slfes-9-Vgratqkam 0.3 g/dL (0.2-0.3) 02/07/24 04:48 Sbtun-2-Jpvinpbhl 0.7 g/dL (0.5-0.9) 02/07/24 04:48 Pmrx-6-Xxgyetcs 0.3 g/dL (0.4-0.6) L 02/07/24 04:48 Bscd-7-Jpxhirtl 0.4 g/dL (0.2-0.5) 02/07/24 04:48 Gamma Globulins 1.3 g/dL (0.8-1.7) 02/07/24 04:48 Abnorm Protein Band 1 0.2 g/dL (NONE DETECTED) H 02/07/24 04:48 Thiamine >1200 nmol/L (78-185) H 02/08/24 19:49 Vitamin B12 380 pg/mL (232-1245) 02/08/24 05:21 Folate 7.9 ng/mL (4.8-37.3) 02/08/24 05:21 Procalcitonin 1.02 ng/mL (0-0.5) H 02/16/24 06:26 TSH 1.18 uIU/mL (0.27-4.20) 02/12/24 14:33 Free T4 1.21 ng/dL (0.82-1.77) 02/12/24 14:33 Urine Color Yellow (Yellow) 02/15/24 15:45 Urine Appearance Error (CLEAR) A 02/15/24 15:45 Urine pH 5.0 (5-7) 02/15/24 15:45 Ur Specific [place] 1.020 (1.005-1.030) 02/15/24 15:45 Urine Protein Trace (Negative) A 02/15/24 15:45 Urine Glucose (UA) 1+ (Normal) H 02/15/24 15:45 Urine Ketones Negative (Negative) 02/15/24 15:45 Urine Blood 3+ (Negative) A 02/15/24 15:45 Urine Nitrate Negative (Negative) 02/15/24 15:45 Urine Bilirubin Negative (Negative) 02/15/24 15:45 Urine Urobilinogen 0.2 mg/dL (Negative) 02/15/24 15:45 Ur Leukocyte Esterase 1+ (Negative) A 02/15/24 15:45 Urine RBC 21-50 /hpf (0-2) H 02/15/24 15:45 Urine WBC 11-20 /hpf (0-5) H 02/15/24 15:45 Ur Squamous Epith Cells 6-10 /hpf (0-5) 02/15/24 15:45 Uric Acid Crystals 0-4 /hpf 02/15/24 15:45 Amorphous Sediment Not Reportable 02/15/24 15:45 Urine Bacteria None seen /hpf (NONE) 02/15/24 15:45 Hyaline Casts 0.81 /lpf 02/15/24 15:45 Urine Yeast 1+ /hpf H 02/15/24 15:45 U Abnormal Prot Band 2 Not Reportable 02/07/24 04:48 U Abnormal Prot Band 3 Not Reportable 02/07/24 04:48 CSF Appearance Clear (CLEAR) 02/07/24 16:35 CSF Color Colorless (COLORLESS) 02/07/24 16:35 CSF Specific [place] 1.006 02/07/24 16:35 CSF WBC 2 /uL (0-5) 02/07/24 16:35 CSF RBC 0 10^3/uL (0-0) 02/07/24 16:35 CSF Mononuclear # Auto 0.002 10^3/uL (50-90) L 02/07/24 16:35 CSF Mononuclear WBCs % 100 % (50-90) H 02/07/24 16:35 CSF Polynuclear WBCs # 0.000 10^3/uL (0-10) 02/07/24 16:35 CSF Polynuclear WBCs % 0 % (0-10) 02/07/24 16:35 CSF Diff Comment Yes 02/07/24 16:35 CSF Glucose 92 mg/dL (40-70) H 02/07/24 16:35 CSF Adenosine Deaminase 0.5 U/L (<7.0) 02/07/24 16:35 CSF Total Protein 24 mg/dL (15-45) 02/07/24 16:35 CSF Lyme IgG (Immblot) No bands detected 02/07/24 16:35 CSF Lyme IgM (Immblot) No bands detected 02/07/24 16:35 CSF Jess Enceph IgG <1:1 02/07/24 16:[address] [facility] Enc IgM IFA <1:1 02/07/24 16:35 CSF Jess Enceph Intrp See note 02/07/24 16:35 Vancomycin Trough 18.5 ug/mL (10-15) H 02/08/24 09:19 Pro Electrophoresis Int See note 02/07/24 04:48 Lymphoma Panel See report 02/07/24 09:05 Immunophenotype Interp See report 02/06/24 09:50 Lyme IgG Bands Present Not Reportable 02/07/24 16:35 Lyme IgM Bands Present Not Reportable 02/07/24 16:35 Coronavirus (PCR) Negative (Negative) 02/15/24 15:45 Hepatitis A IgM Ab Non-reactive (Nonreactive) 02/06/24 15:43 Hep Bs Antigen Non-reactive (Nonreactive) 02/06/24 15:43 Hep B Core IgM Ab Non-reactive (Nonreactive) 02/06/24 15:43 Hepatitis C Antibody Non-reactive (Nonreactive) 02/06/24 15:43 HIV 1&2 Ab & HIV 1 Ag Non-reactive (Non-Reactiv) 02/06/24 15:43 HIV 1&2 Antibody Non-reactive (Non-Reactiv) 02/06/24 15:43 Influenza A (PCR) Negative (Negative) 02/15/24 15:45 Influenza Type B (PCR) Negative (Negative) 02/15/24 15:45 RSV (PCR) Negative (Negative) 02/15/24 15:45 SARS-CoV-2 Ag (Rapid) Negative (Negative) 02/17/24 00:05 Vitals Last Vital Signs Temp 97.6 F 02/17/24 18:00 Pulse 84 02/17/24 18:00 Resp 10 L 02/20/24 09:07 BP 97/53 02/17/24 18:00 Pulse Ox 95 02/18/24 01:44 O2 Del Method Aerosol Mask 02/17/24 08:00 O2 Flow Rate 10 02/14/24 13:55 Discharge Plan Discharge Patient Disposition: Hospice - Medical Facility Condition: Stable Prescriptions: New polyethylene glycol 3350 17 gram Powder In Packet 17 g peg-tube DAILY PRN (Reason: constipation) 30 Days Qty: 30 0RF levetiracetam 500 mg Tablet 250 mg peg-tube Q12H 30 Days Qty: 30 0RF cyanocobalamin (vitamin B-12) [Vitamin B-12] 1,000 mcg Tablet 1,000 mcg PO DAILY 30 Days Qty: 30 0RF folic acid 1 mg Tablet 1 mg PO BID 30 Days Qty: 60 0RF magnesium L-lactate [Magtab] 84 mg Tablet Extended Release 84 mg PO BID 30 Days Qty: 60 0RF thiamine HCl (vitamin B1) 100 mg tablet 100 mg PO DAILY 30 Days Qty: 30 0RF levofloxacin 750 mg tablet 750 mg PO DAILY 5 Days Qty: 5 0RF insulin lispro [Humalog U-100 Insulin] 100 unit/mL Solution See Rx Instructions .ROUTE .COMPLEX MDD 20 Qty: 10 0RF Rx Instructions: Inject, subcut, 3 times daily, after meals, based on sliding scale provided Continued pravastatin 40 mg tablet 40 mg PO DAILY gabapentin 300 mg capsule 300 mg PO TID clopidogrel [Plavix] 75 mg tablet 75 mg PO DAILY famotidine 40 mg tablet 40 mg PO DAILY Discontinued carvedilol 12.5 mg tablet 12.5 mg PO BID Rx Instructions: must administer with a meal/food Discharge Orders: Discharge Order (Routine); Ordered 02/20/24 Ordered By: Cyn Rock Referrals: [facility] [Outside] Mohinder Ray MD [Physician] - 1 week (cva) Maryann Webb NP [Primary Care Provider] - Jose Alberto Al MD [Family Provider] - Xiang Muñoz MD [Hospitalist] - 2 weeks (diffuse lymphadenopathy) Discharge Diet: As Directed Discharge Activity: Resume usual activity Patient Instructions: Acute Wound Care (DC), Altered Mental Status (ED), GI Post Discharge Instructions w/ Anesthesia, Opioid Safety Activity Restrictions/Additional Instructions: -PEG tube bolus feeding, -Glucerna 1.5 with free water flush of 60 mL before and after using following regimen; -8aM 240 mL -1 PM 240 mL -6 PM 360 mL -Speech therapy daily, high aspiration risk, keep n.p.o. -Physical therapy Daily -Equivalent of 3.5 cartons a day -Please monitor your blood sugars closely -Monitor your blood sugars 3 times daily as after meals -Please record your blood sugars, and a blood sugar log -For your NovoLog -Please inject blood sugar after meals based on sliding scale provided -Do not inject insulin if you do not eat as hypoglycemia kills -This is a NovoLog sliding scale -Insulin sliding ?fingerstick? Insulin ?141-180?0 units/sq 181-220?2 units/sq ?221-260?4 units/sq ?261-300 6 units/sq ?301-350?8 units/sq ?351-400 10 units/sq ?401-450?12 units/sq >450? 14units/sq -If your blood sugar is greater than 500 go to the emergency room -If your blood sugar is less than 60 or at anytime you feel lightheaded or dizzy or diaphoretic or have chest palpitations check your blood sugar, and eat a hard candy or drink orange juice and go immediately to the emergency room -Remember hypoglycemia kills, so if his blood sugar is less than 60 we have to increase it by taking in a sugary meal such as a hard candy or orange juice and go to the emergency room -If you have any questions please call us where here to help Discharge Attestations Time Spent in Discharge Care*: greater than 30 min Quality Metrics Clinical Quality Measures [ Cerebrovascular Accident { Contraindication to Antithrombotic: Other; Contraindication to Anticoagulation: Other; Contraindication to Statin: Other; Contraindication to antithrombotic day 2: Other;}] Coding Level of Care Code Acute Code for Chg Fwd Diagnoses AMS (altered mental status) R41.82 Volume depletion E86.9 Urinary tract infection N39.0 Urinary tract infection type: site unspecified Lymphadenopathy, abdominal R59.0 Lymphadenopathy R59.1 Pneumonia J18.9 KLAUS (acute kidney injury) N17.9 Toxic encephalopathy G92.9 Protein calorie malnutrition E46 Multi-infarct dementia F01.50 Brainstem stroke I63.9 Dysphagia R13.10 Goals of care, counseling/discussion Z71.89
--- NOTE | 2024-02-20 17:58 | P.HP_ITS ---
Providers/Chief Complaint 2 Admitting Physician: John Paul Tejeda MD Primary Care Provider: Maryann Webb NP Chief Complaint: confusion, weakness History of Present Illness Please see my dictated dictated discharge summary from today. H&P as patient is transitioning to inpatient hospice today. Review of Systems 2 General: Reports: ROS unobtainable due to medical condition and ROS unobtainable due to mental status Medications/Allergies Home Medications Medication Instructions Recorded Confirmed Last Taken Type clopidogrel 75 mg tablet (Plavix) 75 mg PO DAILY 12/30/22 02/05/24 Unknown History gabapentin 300 mg capsule 300 mg PO TID 12/30/22 02/05/24 Unknown History pravastatin 40 mg tablet 40 mg PO DAILY 12/30/22 02/05/24 Unknown History famotidine 40 mg tablet 40 mg PO DAILY 02/05/24 02/05/24 Unknown History cyanocobalamin (vitamin B-12) 1,000 mcg PO DAILY 30 days #30 tabs 02/16/24 Unknown Rx 1,000 mcg tablet (Vitamin B-12) folic acid 1 mg tablet 1 mg PO BID 30 days #60 tabs 02/16/24 Unknown Rx insulin lispro 100 unit/mL See Rx Instructions .Route 02/16/24 Unknown Rx subcutaneous solution (Humalog .COMPLEX #10 mL U-100 Insulin) levetiracetam 500 mg tablet 250 mg (1/2 x 500 mg) peg-tube 02/16/24 Unknown Rx Q12H 30 days #30 tabs levofloxacin 750 mg tablet 750 mg PO DAILY 5 days #5 tabs 02/16/24 Unknown Rx magnesium L-lactate 84 mg 84 mg PO BID 30 days #60 tabs 02/16/24 Unknown Rx tablet,extended release (Magtab) polyethylene glycol 3350 17 gram 17 g peg-tube DAILY PRN 02/16/24 Unknown Rx oral powder packet constipation 30 days #30 ea thiamine HCl (vitamin B1) 100 mg 100 mg PO DAILY 30 days #30 tabs 02/16/24 Unknown Rx tablet Allergies Allergy/AdvReac Type Severity Reaction Status Date / Time ibuprofen [From Motrin] Allergy Unknown Verified 02/14/24 06:59 PFSH Acute 2 PFSH: Medical History HTN (hypertension) with goal to be determined CAD (coronary artery disease) Surgical History History of hysterectomy History of appendectomy History of cholecystectomy Family History Mother Cancer Social History Smoking and tobacco/nicotine status: never used tobacco/nicotine Vitals/I&O/Wt Last Vital Signs Temp 97.6 F 02/17/24 18:00 Pulse 84 02/17/24 18:00 Resp 10 L 02/20/24 09:07 BP 97/53 02/17/24 18:00 Pulse Ox 95 02/18/24 01:44 O2 Del Method Aerosol Mask 02/17/24 08:00 O2 Flow Rate 10 02/14/24 13:55 02/20/24 02/20/24 02/20/24 06:59 14:59 22:59 Output Total 100 / 1350 Balance -100 / -1350 Weight last 48 hrs Weight 86.273 kg Weight 91.711 kg Physical Exam 2 Narrative: General: No acute distress, asleep comfort care management Data 02/16/24 06:26 02/16/24 06:26 A&P Assessment and plan (1) Need for comfort care: Patient currently on comfort care, transitioned to inpatient hospice on comfort care management per protocol. (2) Brainstem stroke: Attestations 2 Medical Necessity Statement*: Greater than 2 midnight stay is anticipated Coding Level of Care Code Acute Code for [facility] Fwd Diagnoses Need for comfort care Brainstem stroke I63.9
== END 2024-02-20 11:49 | disposition hospice, inpatient (51) | DRG 177 ==
LOC: ER 19:11 → MEDSURG 20:10
PROVIDERS: Psychiatry & Neurology Neurology; Surgery; Admitting Provider Family Medicine; Emergency Provider Emergency Medicine; Family Provider Family Medicine; PCP Nurse Practitioner Family; Visit Provider Student in an Organized Health Care Education/Training Program
PROC: 0DH63UZ Insertion of Feeding Device into Stomach, Percutaneous Approach (ICD-10-PCS; CPT 43246; principal; 2024-02-14 12:45)
DX: J69.0 Pneumonitis due to inhalation of food and vomit (principal); G92.9 Unspecified toxic encephalopathy; I63.9 Cerebral infarction, unspecified; J98.11 Atelectasis; N39.0 Urinary tract infection, site not specified; N17.9 Acute kidney failure, unspecified; G93.49 Other encephalopathy; E46 Unspecified protein-calorie malnutrition; R47.01 Aphasia; R13.10 Dysphagia, unspecified; E11.9 Type 2 diabetes mellitus without complications; I25.10 Atherosclerotic heart disease of native coronary artery without angina pectoris; Z95.5 Presence of coronary angioplasty implant and graft; I10 Essential (primary) hypertension; E78.5 Hyperlipidemia, unspecified; Z90.49 Acquired absence of other specified parts of digestive tract; Z90.710 Acquired absence of both cervix and uterus; E86.9 Volume depletion, unspecified; Z86.73 Personal history of transient ischemic attack (TIA), and cerebral infarction without residual deficits; R59.0 Localized enlarged lymph nodes; F01.50 Vascular dementia, unspecified severity, without behavioral disturbance, psychotic disturbance, mood disturbance, and anxiety; R09.02 Hypoxemia; R40.4 Transient alteration of awareness; Z51.5 Encounter for palliative care; Z66 Do not resuscitate; L89.152 Pressure ulcer of sacral region, stage 2; Z68.37 Body mass index [BMI] 37.0-37.9, adult; E86.0 Dehydration
CPT/HCPCS: 0241U; 36415; 36416; 36600; 43249; 51702; 62328; 70450; 70551; 71045; 71250; 74176; 80048; 80051; 80053; 80074; 80202; 80503; 81001; 82140; 82330; 82550; 82607; 82746; 82805; 82945; 82962; 83010; 83036; 83605; 83615; 83735; 84100; 84145; 84155; 84157; 84165; 84311; 84315; 84425; 84439; 84443; 84484; 84550; 85025; 85651; 86140; 86617; 86653; 87040; 87070; 87075; 87086; 87205; 87426; 87806; 88112; 88184; 88185; 88305; 89050; 92507; 92523; 92526; 92610; 93005; 93880; 96361; 96372; 96374; 97110; 97162; 97167; 97530; 97535; 99285; J0696; J1650; J1815; J1953; J2060; J2270; J2470; J2543; J2704; J3370; J3372; J3411; J3420; J3475; J3490; J7030; J7042

== ENCOUNTER 2024-02-20 11:50 | Inpatient (IN) | payer OTHER, MEDICARE, SELFPAY ==
[2024-02-20] MEDS: LORazepam 2 mg/mL INJ 1 mL IVP ×2 (15:03→23:03)
[2024-02-20] MEDS: morphine 10 mg/0.5 mL oral liq UD SUBLINGUAL (20:01)
[2024-02-20 23:02] VITALS: RESP 30
[2024-02-20] MEDS: morphine 4 mg/mL SDV 1 mL IVP (23:02)
[2024-02-21 06:15] VITALS: PULSE 101; O2SAT 94
--- NOTE | 2024-02-21 15:25 | PM.PN ---
Subjective Subjective: No acute interim events. Patient is comfortable. Vitals/I&O/Wt Last Vital Signs Pulse 101 H 02/21/24 06:15 Resp 30 H 02/20/24 23:02 Pulse Ox 94 02/21/24 06:15 O2 Del Method Nasal Cannula 02/21/24 06:15 O2 Flow Rate 2 02/21/24 06:15 02/21/24 02/21/24 02/21/24 06:59 14:59 22:59 Intake Total 0 / 0 Output Total 50 / 600 Balance -50 / -600 Weight last 48 hrs Weight 87.997 kg Physical Exam Narrative: asleep, no acute distress comfortable overall Urinary Catheter Management: Rosario: Cath Placed During This Visit: no Reason for Continuing Indwelling Catheter: Hospice/Comfort/Palliative Care A&P Assessment and plan (1) Need for comfort care: conitnued comfort care management per protocol. No acute interim events. Attestations Medical Necessity Statement*: comfort care management Coding Level of Care Code Acute Code for Chg Fwd Straight Forward/Low MDM includes number and complexity of problems actively addressed during encounter, amount and/or complexity of data reviewed/ordered and described risk of complication, morbidity or mortality of management as documented Diagnoses Need for comfort care
[2024-02-21] MEDS: morphine 10 mg/0.5 mL oral liq UD SUBLINGUAL (17:44)
[2024-02-21] MEDS: atropine 1% op soln 2 mL Btl 3 DROP SUBLINGUAL (18:29)
[2024-02-22] MEDS: atropine 1% op soln 2 mL Btl 3 DROP SUBLINGUAL (00:33)
[2024-02-22 08:32] VITALS: RESP 26
[2024-02-22] MEDS: morphine 4 mg/mL SDV 1 mL IVP (08:32)
[2024-02-22 11:42] VITALS: BP 113/69; PULSE 108; RESP 20; TEMP 37.8; O2SAT 93
[2024-02-22 19:43] VITALS: BP 131/76; PULSE 108; RESP 22; TEMP 37.6; O2SAT 96
[2024-02-23 00:23] VITALS: RESP 20
[2024-02-23] MEDS: morphine 4 mg/mL SDV 1 mL IVP ×3 (00:23→16:01)
[2024-02-23 07:54] VITALS: BP 133/72; PULSE 101; RESP 23; TEMP 37.6; O2SAT 93
[2024-02-23 11:34] VITALS: RESP 24
[2024-02-23 16:01] VITALS: RESP 26
[2024-02-23] MEDS: atropine 1% op soln 2 mL Btl 3 DROP SUBLINGUAL (16:40)
--- NOTE | 2024-02-23 16:44 | PM.PN ---
Subjective Subjective: no acute interim events Vitals/I&O/Wt Last Vital Signs Temp 99.6 F 02/23/24 07:54 Pulse 101 H 02/23/24 07:54 Resp 26 H 02/23/24 16:01 BP 133/72 02/23/24 07:54 Pulse Ox 93 02/23/24 07:54 O2 Del Method Nasal Cannula 02/23/24 07:54 O2 Flow Rate 2 02/23/24 08:00 Weight last 48 hrs Weight 63.321 kg Weight 87.815 kg Physical Exam Narrative: asleep, no acute distress comfortable overall Urinary Catheter Management: Rosario: Cath Placed During This Visit: no Reason for Continuing Indwelling Catheter: Hospice/Comfort/Palliative Care A&P Assessment and plan (1) Need for comfort care: conitnued comfort care management per protocol. No acute interim events. Attestations Medical Necessity Statement*: comfort care management Coding Level of Care Code Acute Code for Chg Fwd Diagnoses Need for comfort care
[2024-02-23] MEDS: glycopyrrolate 0.2 mg/mL SDV 2 mL IV (17:13)
[2024-02-23 20:00] VITALS: BP 109/70; PULSE 101; RESP 15; TEMP 37.1; O2SAT 87
[2024-02-24 09:31] VITALS: BP 133/74; PULSE 113; RESP 18; TEMP 38.8; O2SAT 93
[2024-02-24 15:16] VITALS: RESP 16
[2024-02-24] MEDS: morphine 4 mg/mL SDV 1 mL IVP ×2 (15:16→16:25)
--- NOTE | 2024-02-24 16:08 | PM.PN ---
Subjective Subjective: no acute interim events. She remains comfortable Medications: Reviewed: Yes Vitals/I&O/Wt Last Vital Signs Temp 101.9 F H 02/24/24 09:31 Pulse 113 H 02/24/24 09:31 Resp 16 02/24/24 15:16 BP 133/74 02/24/24 09:31 Pulse Ox 93 02/24/24 09:31 O2 Del Method Room Air 02/24/24 09:31 O2 Flow Rate 2 02/24/24 08:00 02/24/24 02/24/24 02/24/24 06:59 14:59 22:59 Output Total 375 / 375 50 / 50 Balance -375 / -375 -50 / -50 Weight last 48 hrs Weight 83.143 kg Weight 63.321 kg Physical Exam Narrative: asleep, no acute distress comfortable overall Urinary Catheter Management: Rosario: Cath Placed During This Visit: no Reason for Continuing Indwelling Catheter: Hospice/Comfort/Palliative Care A&P Assessment and plan (1) Need for comfort care: conitnued comfort care management per protocol. No acute interim events. Attestations Medical Necessity Statement*: comfort care management for hospice patient Coding Level of Care Code Acute Code for Chg Fwd Diagnoses Need for comfort care
[2024-02-24 16:25] VITALS: RESP 18
[2024-02-24 20:10] VITALS: BP 110/56; PULSE 102; RESP 25; TEMP 37.7; O2SAT 92
[2024-02-25] MEDS: LORazepam 2 mg/mL INJ 1 mL IVP ×2 (00:01→15:56)
[2024-02-25 00:02] VITALS: RESP 19; O2SAT 92
[2024-02-25] MEDS: morphine 4 mg/mL SDV 1 mL IVP ×2 (00:02→06:07)
[2024-02-25 06:07] VITALS: RESP 20; O2SAT 92
[2024-02-25 08:08] VITALS: BP 118/70; PULSE 102; RESP 14; TEMP 38.2; O2SAT 92
[2024-02-25] MEDS: morphine 10 mg/0.5 mL oral liq UD SUBLINGUAL (15:56)
--- NOTE | 2024-02-25 16:57 | PM.PN ---
Subjective Subjective: no new complaints, no acute interim events, patient appeasr to be comfortbale Medications: Reviewed: Yes Vitals/I&O/Wt Last Vital Signs Temp 100.8 F H 02/25/24 08:08 Pulse 102 H 02/25/24 08:08 Resp 14 02/25/24 08:08 BP 118/70 02/25/24 08:08 Pulse Ox 92 02/25/24 08:08 O2 Del Method Nasal Cannula 02/25/24 08:08 O2 Flow Rate 2 02/25/24 08:08 02/25/24 02/25/24 02/25/24 06:59 14:59 22:59 Output Total 0 / 50 Balance 0 / -50 Weight last 48 hrs Weight 82.554 kg Weight 83.143 kg Physical Exam Narrative: asleep, no acute distress comfortable overall Urinary Catheter Management: Rosario: Cath Placed During This Visit: no Reason for Continuing Indwelling Catheter: Hospice/Comfort/Palliative Care A&P Assessment and plan (1) Need for comfort care: conitnued comfort care management per protocol. No acute interim events. patieent appears to be comfortbale. Family at bedside Attestations Medical Necessity Statement*: continued comfort care management Coding Level of Care Code Acute Code for Chg Fwd Straight Forward/Low MDM includes number and complexity of problems actively addressed during encounter, amount and/or complexity of data reviewed/ordered and described risk of complication, morbidity or mortality of management as documented Diagnoses Need for comfort care
[2024-02-25 19:56] VITALS: BP 113/72; PULSE 107; RESP 25; TEMP 37.4; O2SAT 82
[2024-02-26 11:17] VITALS: BP 120/74; PULSE 108; RESP 20; TEMP 36.6; O2SAT 86
[2024-02-26 14:00] VITALS: BP 112/57; PULSE 108; RESP 24; TEMP 38.6; O2SAT 90
--- NOTE | 2024-02-26 16:09 | PM.PN ---
Subjective Subjective: Patient remains comfortable Medications: Reviewed: Yes Vitals/I&O/Wt Last Vital Signs Temp 101.5 F H 02/26/24 14:00 Pulse 108 H 02/26/24 14:00 Resp 24 H 02/26/24 14:00 BP 112/57 02/26/24 14:00 Pulse Ox 90 02/26/24 14:00 O2 Del Method Nasal Cannula 02/25/24 19:56 O2 Flow Rate 2 02/25/24 08:08 02/26/24 02/26/24 02/26/24 06:59 14:59 22:59 Output Total 0 / 0 Balance 0 / 0 Weight last 48 hrs Weight 81.647 kg Weight 82.554 kg Physical Exam Narrative: asleep, no acute distress comfortable overall Urinary Catheter Management: Rosario: Cath Placed During This Visit: no Reason for Continuing Indwelling Catheter: Other A&P Assessment and plan (1) Need for comfort care: conitnued comfort care management per protocol. Attestations Medical Necessity Statement*: Comfort care management on inpatient hospice Coding Level of Care Code Acute Code for Chg Fwd Diagnoses Need for comfort care
[2024-02-27 00:42] VITALS: BP 84/45; PULSE 111; RESP 21; TEMP 37.9; O2SAT 91
[2024-02-27 07:52] VITALS: BP 53/36; PULSE 113; RESP 24; TEMP 38.5; O2SAT 93
--- NOTE | 2024-02-27 11:04 | PC.NURSE ---
this nurse has offered and attempted to give pt morphine, pts s/o refused any medications when offered.
--- NOTE | 2024-02-27 14:18 | PM.PN ---
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 Vitals/I&O/Wt Last Vital Signs Temp 101.3 F H 02/27/24 07:52 Pulse 113 H 02/27/24 07:52 Resp 24 H 02/27/24 07:52 BP 53/36 02/27/24 07:52 Pulse Ox 93 02/27/24 07:52 O2 Del Method Nasal Cannula 02/27/24 07:52 O2 Flow Rate 2 02/25/24 08:08 02/26/24 02/27/24 02/27/24 22:59 06:59 14:59 Output Total 0 / 0 50 / 50 Balance 0 / 0 -50 / -50 Weight last 48 hrs Weight 81.647 kg Physical Exam Narrative: asleep, no acute distress comfortable overall Urinary Catheter Management: Rosario: Cath Placed During This Visit: no Reason for Continuing Indwelling Catheter: Chronic Indwelling Urinary Catheter on Admission A&P Assessment and plan (1) Need for comfort care: conitnued comfort care management per protocol. Attestations Medical Necessity Statement*: Comfort care management on inpatient hospice Diagnoses Need for comfort care
[2024-02-27 20:00] VITALS: BP 192/136; PULSE 27; RESP 23; TEMP 39.6; O2SAT 77
--- NOTE | 2024-02-27 22:22 | PC.NURSE ---
PT AT 2211. MD AND LACI SUP NOTIFIED. FAMILY AT BEDSIDE.
--- NOTE | 2024-02-27 23:25 | PC.NURSE ---
: Pt at 2211 with family and significant other at the bedside. 2 nurse verification preformed. roaster supervisor and Physician notified. MTS notified and the patient is not a donation candidate and [place] [facility] [place] [facility] include 234 beds at the [facility]. 3 [facility] also notified and are on their way.
--- NOTE | 2024-02-28 01:06 | PC.NURSE ---
[facility] here to picker feeder patient, hospice also in the room at time of picker feeder.
--- NOTE | 2024-02-28 18:37 | PM.DDS ---
Discharge Providers DDS Date of Admission: 02/20/24 11:50 Date Summary Completed: 02/28/24 Attending Provider at Admission: Cyn Rock MD Attending Provider at Discharge: Selena Burr MD Primary Care Provider: Maryann Webb NP DS Diagnoses Hospital Diagnoses (1) Need for comfort care: Reason for Visit Reason for Visit HOSPICE/COMFORT CARE 3 RAWLS Summary Summary Summary: patient on comfort measures, at 2211 Additional Data Advance directives?: No (unknown) Discharge Plan Discharge Patient Disposition: DS Attestations Time Spent in /Discharge Care*: less than 30 min Quality - AMI: AMI present?: No Quality - Stroke: CVA present?: No Quality - VTE: VTE present?: No Coding Level of Care Code Acute Code for Chg Fwd Diagnoses Need for comfort care
== END 2024-02-28 01:10 | disposition expired | DRG 951 ==
PROVIDERS: Admitting Provider Student in an Organized Health Care Education/Training Program; Family Provider Family Medicine; PCP Nurse Practitioner Family; Visit Provider Internal Medicine
DX: Z51.5 Encounter for palliative care (principal); I63.9 Cerebral infarction, unspecified; I25.10 Atherosclerotic heart disease of native coronary artery without angina pectoris; I10 Essential (primary) hypertension
CPT/HCPCS: J2060; J2270; J3490